=== PATIENT | female | born 1935 | race Caucasian/White ===

== ENCOUNTER → 2016-07-07 | Outpatient (CLI) | payer MEDICARE | LOC: OD 09:32 | PROVIDERS: ATTEND Otolaryngology | DX: H92.01 Otalgia, right ear (principal) | CPT/HCPCS: 36415; 85652 ==

== ENCOUNTER 2016-07-10 08:55 | Emergency (ER) | payer MEDICARE ==
--- NOTE | 2016-07-10 09:54 | ER Document Report ---
HPI - HPI Pain Level: 4 Context: Patient comes to the office c/o neck pain x1 week that radiates into her rt trapezius muscle. states that she had been working in the yard raking prior. Her pain is described as a soreness. The pain is worsened with lateral flexion to the right. Pt has been taking aleve with minimal relief. She denies any trauma. She has not noticed any radicular symptoms to her UE's b/l. She denies any fever or muscle weakness. Patient also c/o ongoing rt ear pain x2 weeks. Pt was eval'd by her pcp initially, dx'd with OE, and placed on ofloxac. otic ear drops as well as oral prednisone which she has since completed. Pt states that the medication did help. She was then referred to ENT who performed a CT scan. Her f/u appointment is still pending, but pt states that her PCP Dr. Reese believes there may be "an inner ear issue." Pt was again f/u'd by her PCP 2 days ago without any changes to her treatment/plan. Pt states that she has not had any acute changes in her condition that brought her into the ED, only that she continues to have pain. Her PCP is working on getting her seen by another ENT prior to the when she is originally scheduled. Denies any fever, CEE, dizziness, change in vision, change in hearing, tinnitus, URI sx's, sore throat , cough, sob, cp, abd pain, dysuria, or rash. - ROS Notes: REVIEW OF SYSTEMS: CONSTITUTIONAL : Denies fever, chills, or sweats. Denies recent illness. Ears: as above. ENT: Denies eye, throat, or mouth pain or symptoms. Denies nasal or sinus congestion or discharge. Denies throat, tongue, or mouth swelling or difficulty swallowing. CARDIOVASCULAR: Denies chest pain. Denies palpitations or racing or irregular heart beat. Denies ankle edema. RESPIRATORY: Denies cough, cold, or chest congestion. Denies shortness of breath, difficulty breathing, or wheezing. GASTROINTESTINAL: Denies abdominal pain or distention. Denies nausea, vomiting , or diarrhea. Denies blood in vomitus, stools, or per rectum. Denies black, tarry stools. Denies constipation. GENITOURINARY: Denies difficulty urinating, painful urination, burning, frequency, blood in urine, or discharge. MUSCULOSKELETAL: Denies back or neck pain or stiffness. Denies joint pain or swelling. SKIN: Denies rash, lesions or sores. HEMATOLOGIC : Denies easy bruising or bleeding. LYMPHATIC: Denies swollen, enlarged glands. NEUROLOGICAL: Denies confusion or altered mental status. Denies passing out or loss of consciousness. Denies dizziness or lightheadedness. Denies headache. Denies weakness or paralysis or loss of use of either side. Denies problems with gait or speech. Denies sensory loss, numbness, or tingling. Denies seizures. ALL OTHER SYSTEMS REVIEWED AND NEGATIVE. Dictation was performed using [employer] voice recognition software - CARDIOVASCULAR Cardiovascular: DENIES: Chest pain - REPRODUCTIVE Reproductive: DENIES: : - DERM Skin Color: Normal Past Medical History - Social History Smoking Status: Current Every Day Smoker Frequency of alcohol use: Rare Drug Abuse: None Family History: Reviewed & Not Pertinent Patient has suicidal ideation: No Patient has homicidal ideation: No - Past Medical History Cardiac Medical History: Reports: Hx Hypertension Denies: Hx Coronary Artery Disease, Hx Heart Attack Pulmonary Medical History: Reports: Hx Bronchitis Denies: Hx Asthma, Hx COPD, Hx Pneumonia Neurological Medical History: Denies: Hx Cerebrovascular Accident, Hx Seizures Renal/ Medical History: Denies: Hx Peritoneal Dialysis GI Medical History: Denies: Hx Hepatitis, Hx Hiatal Hernia, Hx Ulcer Musculoskeltal Medical History: Denies Hx Arthritis Infectious Medical History: Denies: Hx Hepatitis Past Surgical History: Reports: Hx Hysterectomy, Hx Mastectomy - right, Hx Orthopedic Surgery, Hx Tonsillectomy. Denies: Hx Open Heart Surgery, Hx Pacemaker - Immunizations Hx Diphtheria, Pertussis, Tetanus Vaccination: Yes Vertical Provider Document - CONSTITUTIONAL Notes: PHYSICAL EXAMINATION: GENERAL: Well-appearing, well-nourished and in no acute distress. HEAD: Atraumatic, normocephalic. EYES: Pupils equal round and reactive to light, extraocular movements intact, sclera anicteric, conjunctiva are normal. ENT: Rt ear EAC mildly erythemic, tender to palpation, tender tragus. Non- tender mastoid. No d/c. Left EAC wnl. TM's intact b/l without erythema, fluid , or perforation. Nares patent and without discharge. oropharynx clear without exudates. No tonsilar hypertrophy or erythema. Moist mucous membranes. No sinus tenderness. NECK: FROM to passive/active. No deformity, ecchymosis, abrasion, or laceration noted. + tenderness to rt C-spine to palpation and to the rt trap mm. Spurling negative. Strength 5+/5. LUNGS: Breath sounds clear to auscultation bilaterally and equal. No wheezes rales or rhonchi. HEART: Regular rate and rhythm without murmurs, rubs, gallops. ABDOMEN: Soft, nontender, nondistended abdomen. No guarding, no rebound. No masses appreciated. Normal bowel sounds present. No CVA tenderness bilaterally. Musculoskeletal: FROM to passive/active. Strength 5+/5. Extremities: No cyanosis, clubbing, or edema b/l. Peripheral pulses 2+. Capillary refill less than 3 seconds. NEUROLOGICAL: Cranial nerves grossly intact. Normal speech, normal gait. Normal sensory, motor exams. Reflexes 2+ b/l UE's. PSYCH: Normal mood, normal affect. SKIN: Warm, Dry, normal turgor, no rashes or lesions noted. - INFECTION CONTROL TRAVEL OUTSIDE OF THE [place] IN LAST 30 DAYS: No - RESPIRATORY O2 Sat by Pulse Oximetry: 99 Course - Re-evaluation Re-evalutation: 07/10/16 09:56 Patient is a 80-year-old female who presented with chronic right ear pain. Patient also presents with cervicalgia. She has been followed by her PCP and ENT over the last 2 weeks. She had a CT scan and follow-up is pending with ENT. She is placed on ofloxacin otic and oral prednisone which she has since completed. We will send her for a C-spine x-ray. XR showed moderate degenerative changes without acute process. I will send her home with Ciprodex and a short dose of tramadol to take for her neck discomfort. Her blood pressure is a little elevated today. Patient states that she has been out of her Lasix 20 mg. I will send her home with a prescription for 10 days. She is to call on Tuesday for follow-up with her PCP and for medication refill. Pt to return to the ED with any worsening neck pain, dizziness, fever, cp, sob, palp, abd pain, numbness, muscle weakness. Pt in agreement. - Vital Signs Vital signs: Temp Pulse Resp BP Pulse Ox 98.4 F 97 20 148/81 H 99 07/10/16 08:59 07/10/16 08:59 07/10/16 08:59 07/10/16 08:59 07/10/16 08:59 Discharge - Discharge Clinical Impression: Otalgia of right ear, Otitis externa, Cervicalgia, Elevated blood pressure reading Condition: Stable Disposition: HOME, SELF-CARE Instructions: Use of Ear Drops ([facility]), Acetaminophen, Otitis Externa ([facility]), Oral Narcotic Medication ([facility]) Additional Instructions: Take medication as directed Continue routine blood pressure checks at home and call Tuesday for a blood pressure medication refill of furosemide 20 mg. Keep your appointment with your PCP and ENT as scheduled Your neck x-ray did show moderate arthritic changes throughout. Bring x-ray results to the next primary care visit for continued management. Pt to return to the ED with any worsening neck pain, dizziness, fever, cp, sob, palp, abd pain, numbness, muscle weakness. F/u: with your PCP in 2-3 days for recheck. Prescriptions: Ciprofloxacin HCl/Dexameth [Ciprodex Otic Suspension 7.5 ml Bottle] 4 drop OT BID #1 bottle Furosemide 20 mg PO DAILY #10 tablet Tramadol HCl 50 mg PO BID PRN #10 tablet PRN Reason: Forms: Elevated Blood Pressure Referrals: BJ REESE MD [Primary Care Provider] - Follow up as needed
--- NOTE | 2016-07-10 10:26 | RADIOLOGY REPORT (SQ) ---
EXAM DESCRIPTION: CERV SP 3 VIEW OR LESS COMPLETED DATE/TIME: 07/10/2016 10:07 am REASON FOR STUDY: Neck pain (R>L) COMPARISON: 04/30/2013 NUMBER OF VIEWS: Five views. TECHNIQUE: AP, lateral, obliques and odontoid radiographic images acquired of the cervical spine. LIMITATIONS: None. FINDINGS: MINERALIZATION: Osteopenic ALIGNMENT: Anatomic. VERTEBRAE: Vertebral bodies of normal height. DISCS: Disc space loss of height from C3-4 through C7-T1. Very mild anterior and posterior osteophyt e formation. FORAMINA: Moderate to market right C3-4 foraminal narrowing. Moderate C4-5 and C5-6 right foraminal narrowing. Mild left C3-4 and C4-5 foraminal narrowing. Moderate left C5-6 foraminal narrowing. LATERAL AND POSTERIOR ELEMENTS: Facets, lateral masses and spinous processes without acute findings. Diffuse facet arthropathy HARDWARE: None in the spine. SOFT TISSUES: Right carotid bifurcation calcification OTHER: No other significant finding. IMPRESSION: Diffuse degenerative changes TECHNICAL DOCUMENTATION: JOB ID: [id number] [employer]- All Rights Reserved
[2016-07-10] MEDS ORDERED: TRAMADOL HCL 50 MG TABLET PO ONE (11:05)
[2016-07-10 11:12] VITALS: BP 143/72
[2016-07-10] MEDS ORDERED: CIPROFLOXACIN HCL/DEXAMETH OTIC DROP 7.5 ML AD SCH (18:00)
== END 2016-07-10 11:10 | disposition home or self-care (01) ==
LOC: ER 08:55
DX: H92.01 Otalgia, right ear (principal); H60.91 Unspecified otitis externa, right ear; M54.2 Cervicalgia; I10 Essential (primary) hypertension; Z90.710 Acquired absence of both cervix and uterus; Z90.11 Acquired absence of right breast and nipple
CPT/HCPCS: 99283; 72040; A9270

== ENCOUNTER 2016-11-20 15:02 | Emergency (ER) | payer MEDICARE ==
--- NOTE | 2016-11-20 15:59 | ER Document Report ---
HPI - HPI Pain Level: 4 Notes: Patient is a 81-year-old female who presents the ED complaining of right ear pain 2 weeks. Patient states that she was evaluated by her primary care provider and placed on polymyxin B/cortisone eardrops. Patient states that the eardrops to help, but the pain does continue in that ear. The pain does not radiate. She has not noticed any discharge or swelling. Denies any recent illness or URI symptoms. Patient states that she has been developing her usual dermatitis to her hands bilaterally that itch and would like a steroid cream for that. Denies any headache, fever, head injury, neck pain, changes in vision /speech/mentation/hearing, dizziness, tinnitus, URI, sore throat, chest pain, palpitations, syncope, cough, shortness of breath, wheeze, dyspnea, abdominal pain, nausea/vomiting/diarrhea, urinary retention, dysuria, hematuria. - ROS Notes: REVIEW OF SYSTEMS: CONSTITUTIONAL : Denies fever, chills, or sweats. Denies recent illness. EENT: see hpi. no eye complaints CARDIOVASCULAR: Denies chest pain. Denies palpitations or racing or irregular heart beat. Denies ankle edema. RESPIRATORY: Denies cough, cold, or chest congestion. Denies shortness of breath, difficulty breathing, or wheezing. GASTROINTESTINAL: Denies abdominal pain or distention. Denies nausea, vomiting , or diarrhea. Denies blood in vomitus, stools, or per rectum. Denies black, tarry stools. Denies constipation. GENITOURINARY: Denies difficulty urinating, painful urination, burning, frequency, blood in urine, or discharge. MUSCULOSKELETAL: Denies back or neck pain or stiffness. Denies joint pain or swelling. SKIN: see hpi NEUROLOGICAL: Denies confusion or altered mental status. Denies passing out or loss of consciousness. Denies dizziness or lightheadedness. Denies headache. Denies weakness or paralysis or loss of use of either side. Denies problems with gait or speech. Denies sensory loss, numbness, or tingling. ALL OTHER SYSTEMS REVIEWED AND NEGATIVE. Dictation was performed using [employer] voice recognition software - REPRODUCTIVE Reproductive: DENIES: : - DERM Skin Color: Normal Past Medical History - Social History Smoking Status: Never Smoker Family History: Reviewed & Not Pertinent - Past Medical History Cardiac Medical History: Reports: Hx Hypertension Denies: Hx Coronary Artery Disease, Hx Heart Attack Pulmonary Medical History: Reports: Hx Bronchitis Denies: Hx Asthma, Hx COPD, Hx Pneumonia Neurological Medical History: Denies: Hx Cerebrovascular Accident, Hx Seizures Renal/ Medical History: Denies: Hx Peritoneal Dialysis GI Medical History: Denies: Hx Hepatitis, Hx Hiatal Hernia, Hx Ulcer Musculoskeltal Medical History: Denies Hx Arthritis Infectious Medical History: Denies: Hx Hepatitis Past Surgical History: Reports: Hx Hysterectomy, Hx Mastectomy - right, Hx Orthopedic Surgery, Hx Tonsillectomy. Denies: Hx Open Heart Surgery, Hx Pacemaker - Immunizations Hx Diphtheria, Pertussis, Tetanus Vaccination: Yes Vertical Provider Document - CONSTITUTIONAL Agree With Documented VS: Yes Notes: PHYSICAL EXAMINATION: GENERAL: Well-appearing, well-nourished and in no acute distress. A&Ox4 HEAD: Atraumatic, normocephalic. EYES: Pupils equal round and reactive to light, extraocular movements intact, sclera anicteric, conjunctiva are normal. ENT: Rt EAC has scant white discharge noted. TM's intact b/l without erythema, fluid, or perforation. No mastoid tenderness. Nares patent and without discharge. oropharynx clear without exudates. No tonsilar hypertrophy or erythema. Moist mucous membranes. No sinus tenderness. NECK: Normal range of motion, supple without lymphadenopathy. No rigidity/ meningismus. LUNGS: Breath sounds clear to auscultation bilaterally and equal. No wheezes rales or rhonchi. HEART: Regular rate and rhythm without murmurs, rubs, gallops. Musculoskeletal: FROM to passive/active. Strength 5+/5. Extremities: No cyanosis, clubbing, or edema b/l. Peripheral pulses 2+. Capillary refill less than 3 seconds. NEUROLOGICAL: Cranial nerves grossly intact. Normal speech, normal gait. Normal sensory, motor exams PSYCH: Normal mood, normal affect. SKIN: mild erythema with lichenification and fissures to the anterior hands/ fingers b/l. No cellulitis, streaks, abscess, or discharge noted. - INFECTION CONTROL TRAVEL OUTSIDE OF THE [place] IN LAST 30 DAYS: No - RESPIRATORY O2 Sat by Pulse Oximetry: 99 Course - Re-evaluation Re-evalutation: 11/20/16 16:20 Patient is an afebrile, well-hydrated, 81-year-old female who presents the ED with otalgia of the right ear, possible otitis externa of the right ear, and bilateral hand dermatitis. Vitals are stable. PE is otherwise unremarkable. I will switch her from her polymyxin drops to Ciprodex drops and prescribe her some viscous lidocaine she can use as needed. Her ear was irrigated and an ear culture was obtained. I will also send her home with a prescription for triamcinolone cream that she may use as directed for her hands. Low suspicion for any emergent systemic condition at this time. Patient to monitor symptoms closely and seek medical attention with any acute changes. Conservative measures otherwise for symptoms. Recheck with your PCM in 3-5 days. Consider consult with ENT. Return to the ED with any worsening/concerning symptoms otherwise as reviewed in discharge. Patient is in agreement. - Vital Signs Vital signs: Temp Pulse Resp BP Pulse Ox 98.9 F 85 15 165/90 H 99 11/20/16 15:06 11/20/16 15:06 11/20/16 15:06 11/20/16 15:06 11/20/16 15:06 Procedures - Additional Procedures ear irrigation Time performed: 16:15 Additional Procedures: Other - rt ear irrigation Discharge - Discharge Clinical Impression: Otalgia, right ear, Hand dermatitis Condition: Stable Disposition: HOME, SELF-CARE Instructions: Use of Ear Drops ([facility]), Contact Dermatitis ([facility]) Additional Instructions: Keep the hands clean Use moisturizers Use steroid cream as directed Use eardrops as directed Avoid Q-tips in ears Recheck with your PCM in 3-5 days Consider consult with ENT for ongoing/worsening symptoms Return to the ED with any worsening symptoms and/or development of fever, headache, tinnitus, dizziness, neck pain/stiffness, chest pain, palpitations, syncope, shortness of breath, trouble breathing, abdominal pain, n/v/d, blood in stool/urine, or other worsening symptoms that are concerning to you. Prescriptions: Ciprofloxacin HCl/Dexameth [Ciprodex Otic Suspension 7.5 ml Bottle] 4 drop OT BID #1 bottle Triamcinolone Acetonide [Aristocort 0.5% Cream 15 gm] 1 applic TP BID #1 tube Forms: Elevated Blood Pressure Referrals: BJ REESE MD [Primary Care Provider] - Follow up in 3-5 days BETSEY LEVI MD [ACTIVE STAFF] - Follow up as needed
[2016-11-20] MEDS ORDERED: LIDOCAINE 2% VISCOUS SOLN 20 ML UDCUP PO ONE (16:19)
[2016-11-20 16:54] VITALS: BP 154/78
== END 2016-11-20 16:54 | disposition home or self-care (01) ==
LOC: ER 15:02
DX: H92.01 Otalgia, right ear (principal); L30.9 Dermatitis, unspecified; L28.0 Lichen simplex chronicus; R23.4 Changes in skin texture; I10 Essential (primary) hypertension
CPT/HCPCS: 99282; 87205; 87070; J3490

== ENCOUNTER 2017-01-16 09:56 | Emergency (ER) | payer MEDICARE ==
--- NOTE | 2017-01-16 11:31 | ER Document Report ---
HPI - HPI Patient complains to provider of: r ear pain Onset: Other - 3 months Onset/Duration: Persistent Quality of pain: Achy Pain Level: 4 Context: Patient presents complaining of right ear pain for the past 3 months. Patient states she has had multiple courses of antibiotics over the past several months. Patient saw an ENT doctor last week and was told to stop all antibiotics and he placed purple medication in her ear and told her to leave that in her ear. Patient was advised that if her pain did not resolve within 2 days that she should follow back up with his office. Family states they called his office on Tuesday and left a message although have not heard back from him. Patient denies any fever or drainage from her ear. Associated Symptoms: Earache. denies: Fever Exacerbated by: Denies Relieved by: Denies Similar symptoms previously: Yes Recently seen / treated by doctor: Yes - ROS ROS below otherwise negative: Yes Systems Reviewed and Negative: Yes All other systems reviewed and negative - CONSTITUTIONAL Constitutional: DENIES: Fever, Chills - EENT EENT: REPORTS: Ear Pain - RESPIRATORY Respiratory: DENIES: Coughing - GASTROINTESTINAL Gastrointestinal: DENIES: Nausea, Patient vomiting - REPRODUCTIVE Reproductive: DENIES: : - DERM Skin Color: Normal Skin Problems: None Past Medical History - General Information source: Patient, Relative - Social History Smoking Status: Current Every Day Smoker Chew tobacco use (# tins/day): No Frequency of alcohol use: Occasional Drug Abuse: None Lives with: Spouse/Significant other Family History: Reviewed & Not Pertinent Patient has suicidal ideation: No Patient has homicidal ideation: No - Past Medical History Cardiac Medical History: Reports: Hx Hypertension Denies: Hx Coronary Artery Disease, Hx Heart Attack Pulmonary Medical History: Reports: Hx Bronchitis Denies: Hx Asthma, Hx COPD, Hx Pneumonia Neurological Medical History: Denies: Hx Cerebrovascular Accident, Hx Seizures Renal/ Medical History: Denies: Hx Peritoneal Dialysis GI Medical History: Denies: Hx Hepatitis, Hx Hiatal Hernia, Hx Ulcer Musculoskeltal Medical History: Denies Hx Arthritis Infectious Medical History: Denies: Hx Hepatitis Past Surgical History: Reports: Hx Hysterectomy, Hx Mastectomy - right, Hx Orthopedic Surgery, Hx Tonsillectomy. Denies: Hx Open Heart Surgery, Hx Pacemaker - Immunizations Hx Diphtheria, Pertussis, Tetanus Vaccination: Yes Vertical Provider Document - CONSTITUTIONAL Agree With Documented VS: Yes Exam Limitations: No Limitations General Appearance: WD/WN, No Apparent Distress - INFECTION CONTROL TRAVEL OUTSIDE OF THE [place] IN LAST 30 DAYS: No - HEENT HEENT: Atraumatic, Normocephalic. negative: Pharyngeal Exudate, Pharyngeal Tenderness, Pharyngeal Erythema, Tympanic Membrane Red, Tympanic Membrane Bulging Notes: No dental tenderness, no mastoid tenderness or swelling. No pain with movement of right helix. Patient with purple discoloration throughout entire right external auditory canal. TM unable to be visualized due to purple residue - NECK Neck: Normal Inspection, Supple. negative: Lymphadenopathy-Left, Lymphadenopathy-Right - RESPIRATORY Respiratory: Breath Sounds Normal, No Respiratory Distress O2 Sat by Pulse Oximetry: 100 - CARDIOVASCULAR Cardiovascular: Regular Rate, Regular Rhythm - MUSCULOSKELETAL/EXTREMETIES Musculoskeletal/Extremeties: MAEW - NEURO Level of Consciousness: Awake, Alert, Appropriate Motor/Sensory: No Motor Deficit - DERM Integumentary: Warm, Dry, No Rash Course - Re-evaluation Re-evalutation: 01/16/17 11:29 Dr. Conte to bedside for examination. Does not recommend irrigating the ear, does not recommend putting patient on any antibiotics. Recommends outpatient follow-up with ENT tomorrow for recheck. Advises treating pain symptoms with Tylenol Motrin Offered patient Tylenol here, patient declines stating that she has some at home. 01/16/17 11:38 - Vital Signs Vital signs: Temp Pulse Resp BP Pulse Ox 98.5 F 84 16 144/90 H 100 01/16/17 10:01 01/16/17 10:01 01/16/17 10:01 01/16/17 10:01 01/16/17 10:01 Discharge - Discharge Clinical Impression: Otalgia of right ear, Elevated blood pressure reading Condition: Stable Disposition: HOME, SELF-CARE Instructions: Acetaminophen, Use of Ayhr-Nko-Keeiswh Ibuprofen ([facility]) Additional Instructions: Return immediately for any new or worsening symptoms Followup with your primary care provider, call tomorrow to make a followup appointment Follow-up with Dr. Tang tomorrow morning for recheck Forms: Elevated Blood Pressure Referrals: BJ REESE MD [Primary Care Provider] - Follow up as needed SHARRON TANG MD [NO LOCAL MD] - Follow up tomorrow
[2017-01-16 12:08] VITALS: BP 135/86
== END 2017-01-16 11:44 | disposition home or self-care (01) ==
LOC: ER 09:56
DX: H92.01 Otalgia, right ear (principal); I10 Essential (primary) hypertension; F17.200 Nicotine dependence, unspecified, uncomplicated
CPT/HCPCS: 99282

== ENCOUNTER 2017-01-30 12:47 | Emergency (ER) | payer MEDICARE ==
[2017-01-30 12:54] VITALS: BP 166/89
--- NOTE | 2017-01-30 13:23 | ER Document Report ---
HPI - HPI Patient complains to provider of: right ear pain Onset: This morning Onset/Duration: Intermittent Quality of pain: Throbbing Severity: Moderate Pain Level: 3 Context: Patient complains of increased ear pain that started today. Was previously seen on the for same condition. Has follow-up appointment with ENT on February 09, 2017. No fever, denies congestion. Associated Symptoms: Earache Exacerbated by: Denies Relieved by: Denies Similar symptoms previously: Yes Recently seen / treated by doctor: Yes - ROS ROS below otherwise negative: Yes Systems Reviewed and Negative: Yes All other systems reviewed and negative - CONSTITUTIONAL Constitutional: DENIES: Fever - EENT EENT: REPORTS: Ear Pain. DENIES: Congestion - NEURO Neurology: DENIES: Headache - CARDIOVASCULAR Cardiovascular: DENIES: Chest pain - RESPIRATORY Respiratory: DENIES: Trouble Breathing - GASTROINTESTINAL Gastrointestinal: DENIES: Abdominal Pain - URINARY Urinary: DENIES: Dysuria - REPRODUCTIVE Reproductive: DENIES: : - MUSCULOSKELETAL Musculoskeletal: DENIES: Extremity pain - DERM Skin Color: Normal Past Medical History - General Information source: Patient, Relative - Social History Smoking Status: Current Every Day Smoker Cigarette use (# per day): Yes Frequency of alcohol use: Occasional Drug Abuse: None Lives with: Spouse/Significant other Family History: Reviewed & Not Pertinent - Past Medical History Cardiac Medical History: Reports: Hx Hypertension Pulmonary Medical History: Reports: Hx Bronchitis Past Surgical History: Reports: Hx Hysterectomy, Hx Mastectomy - right, Hx Orthopedic Surgery, Hx Tonsillectomy - Immunizations Hx Diphtheria, Pertussis, Tetanus Vaccination: Yes Vertical Provider Document - CONSTITUTIONAL Agree With Documented VS: Yes Exam Limitations: No Limitations General Appearance: WD/WN, No Apparent Distress Notes: Patient is poor historian. Relative with patient states she has a follow-up appointment with ENT February 09, 2017. - INFECTION CONTROL TRAVEL OUTSIDE OF THE [place] IN LAST 30 DAYS: No - HEENT HEENT: Atraumatic, Normocephalic Notes: Nose and throat normal. Left TM dull. Right canal still has blue stain from ENT visit last week. No pain with movement of right auricle. TM has poor light reflex and has slight bulge and whitish mayer color to lower half of the eardrum. - RESPIRATORY Respiratory: Breath Sounds Normal, No Respiratory Distress O2 Sat by Pulse Oximetry: 99 - CARDIOVASCULAR Cardiovascular: Regular Rate, Regular Rhythm - GI/ABDOMEN Gastrointestinal: Abdomen Soft - MUSCULOSKELETAL/EXTREMETIES Musculoskeletal/Extremeties: MAEW - NEURO Level of Consciousness: Awake, Alert - DERM Integumentary: Warm, Dry Course - Vital Signs Vital signs: Temp Pulse Resp BP Pulse Ox 99.1 F 83 17 166/89 H 99 01/30/17 12:53 01/30/17 12:53 01/30/17 12:53 01/30/17 12:53 01/30/17 12:53 Discharge - Discharge Clinical Impression: Otalgia, right ear Condition: Good Disposition: HOME, SELF-CARE Additional Instructions: tylenol or motrin as needed for pain med as prescribed follow up wth your ENT February 09 as scheduled Return as needed Prescriptions: Cefdinir 300 mg PO BID #14 capsule Referrals: BJ REESE MD [Primary Care Provider] - Follow up as needed
== END 2017-01-30 13:35 | disposition home or self-care (01) ==
LOC: ER 12:47
DX: H92.01 Otalgia, right ear (principal); F17.210 Nicotine dependence, cigarettes, uncomplicated
CPT/HCPCS: 96372; 99282

== ENCOUNTER 2017-02-02 09:03 | Emergency (ER) | payer MEDICARE ==
--- NOTE | 2017-02-02 09:36 | ER Document Report ---
HPI - HPI Pain Level: 3 Notes: Patient is a 81-year-old presents ED complaining right ear pain 2 days. The pain is an ache and does not radiate. Patient has not noticed any discharge, tinnitus, dizziness, or dec hearing. Pt believes that she may have placed drops in her ear but cannot remember. Patient is drinking without any difficulties. She still urinating normally and having normal bowel movement. Patient has been using some [id number] meds with minimal relief. She has no other concerns or complaints at this time. Denies any headache, fever, head injury, neck pain, URI, sore throat, chest pain, palpitations, syncope, cough, shortness of breath, wheeze, dyspnea, abdominal pain, nausea/vomiting/diarrhea, urinary retention, dysuria, hematuria, or rash. Pt has a h/o Alzheimers and does get confused on occasion. Pt does have someone to call to pick her up after today's visit. Mr. Gorman stated on the phone that she is already being treated for a fungal infection by a provider in [place] to the rt ear. - ROS Notes: REVIEW OF SYSTEMS: CONSTITUTIONAL : Denies fever, chills, or sweats. Denies recent illness. EENT: see hpi CARDIOVASCULAR: Denies chest pain. Denies palpitations or racing or irregular heart beat. Denies ankle edema. RESPIRATORY: Denies cough, cold, or chest congestion. Denies shortness of breath, difficulty breathing, or wheezing. GASTROINTESTINAL: Denies abdominal pain or distention. Denies nausea, vomiting , or diarrhea. Denies blood in vomitus, stools, or per rectum. Denies black, tarry stools. Denies constipation. GENITOURINARY: Denies difficulty urinating, painful urination, burning, frequency, blood in urine, or discharge. MUSCULOSKELETAL: Denies back or neck pain or stiffness. Denies joint pain or swelling. SKIN: Denies rash, lesions or sores. NEUROLOGICAL: Denies confusion or altered mental status. Denies passing out or loss of consciousness. Denies dizziness or lightheadedness. Denies headache. Denies problems with gait or speech. Denies sensory loss, numbness , or tingling. Denies seizures. ALL OTHER SYSTEMS REVIEWED AND NEGATIVE. Dictation was performed using girnarsoft recognition software - CONSTITUTIONAL Constitutional: DENIES: Fever, Chills - EENT EENT: REPORTS: Ear Pain - right ear - REPRODUCTIVE Reproductive: DENIES: : Past Medical History - Social History Smoking Status: Current Every Day Smoker Chew tobacco use (# tins/day): No Frequency of alcohol use: Occasional Drug Abuse: None Family History: Reviewed & Not Pertinent Patient has suicidal ideation: No Patient has homicidal ideation: No - Past Medical History Cardiac Medical History: Reports: Hx Hypertension Denies: Hx Coronary Artery Disease, Hx Heart Attack Pulmonary Medical History: Reports: Hx Bronchitis Denies: Hx Asthma, Hx COPD, Hx Pneumonia Neurological Medical History: Denies: Hx Cerebrovascular Accident, Hx Seizures Renal/ Medical History: Denies: Hx Peritoneal Dialysis GI Medical History: Denies: Hx Hepatitis, Hx Hiatal Hernia, Hx Ulcer Musculoskeltal Medical History: Denies Hx Arthritis Infectious Medical History: Denies: Hx Hepatitis Past Surgical History: Reports: Hx Hysterectomy, Hx Mastectomy - right, Hx Orthopedic Surgery, Hx Tonsillectomy. Denies: Hx Open Heart Surgery, Hx Pacemaker - Immunizations Hx Diphtheria, Pertussis, Tetanus Vaccination: Yes Vertical Provider Document - CONSTITUTIONAL Agree With Documented VS: Yes Notes: PHYSICAL EXAMINATION: GENERAL: Well-appearing, well-nourished and in no acute distress. HEAD: Atraumatic, normocephalic. EYES: Pupils equal round and reactive to light, extraocular movements intact, sclera anicteric, conjunctiva are normal. ENT: Rt EAC is entirely the color purple, bright purple, and obscuring adequate view of the TM. Lt EAC clear. TM's intact b/l without erythema, fluid, or perforation. Nares patent and without discharge. oropharynx clear without exudates. No tonsilar hypertrophy or erythema. Moist mucous membranes. No sinus tenderness. No tenderness to the tragus. No mastoid tenderness. NECK: Normal range of motion, supple without lymphadenopathy. No rigidity/ meningismus. LUNGS: Breath sounds clear to auscultation bilaterally and equal. No wheezes rales or rhonchi. HEART: Regular rate and rhythm without murmurs, rubs, gallops. Extremities: No cyanosis, clubbing, or edema b/l. Peripheral pulses 2+. Capillary refill less than 3 seconds. NEUROLOGICAL: Cranial nerves grossly intact. Normal speech, normal gait. Normal sensory, motor exams PSYCH: Normal mood, normal affect. SKIN: Warm, Dry, normal turgor, no rashes or lesions noted. - INFECTION CONTROL TRAVEL OUTSIDE OF THE [place] IN LAST 30 DAYS: No - RESPIRATORY O2 Sat by Pulse Oximetry: 98 Course - Re-evaluation Re-evalutation: 02/02/17 10:52 Patient is an afebrile, well-hydrated, 81-year-old female with Alzheimer's who presents to the ED with continued otomycosis of the right ear with already applied Gentian Kia medication by Dr. Alberto (spelling?) in [place]. I did review this case with Mr. Gorman who accompanied the patient at the end of her visit. Conservative measures for symptoms. Recheck with that provider in 3-5 days or as scheduled on February 09. Return to the ED with any worsening/ concerning symptoms otherwise as reviewed discharge. Patient and friend are in agreement. - Vital Signs Vital signs: Temp Pulse Resp BP Pulse Ox 98.1 F 85 16 158/94 H 98 02/02/17 09:11 02/02/17 09:11 02/02/17 09:11 02/02/17 09:11 02/02/17 09:11 Discharge - Discharge Clinical Impression: Otomycosis of right ear Condition: Stable Disposition: HOME, SELF-CARE Additional Instructions: You have a purple stain in your ear from the Gentian Kia ear drop medication given to you by your doctor in [place] to treat your fungal ear infection, which is most likely the cause of your ear discomfort. Take Tylenol/Motrin as needed for symptoms. Maintain adequate fluid intake. Recheck with your [facility]/ [place] provider in 3-5 days. I will give you a consult/referral to ENT. Return to the ED with any worsening symptoms and/or development of fever, headache, neck pain, tinnitus, ear drainage, chest pain, palpitations, syncope, shortness of breath, trouble breathing, abdominal pain, n/v/d, blood in stool/ urine, or other worsening symptoms that are concerning to you. Forms: Elevated Blood Pressure Referrals: DEISY PECK, [ASSOCIATE] - Follow up as needed
[2017-02-02 10:52] VITALS: BP 155/94
== END 2017-02-02 10:57 | disposition home or self-care (01) ==
LOC: ER 09:03
DX: B36.9 Superficial mycosis, unspecified (principal); H62.41 Otitis externa in other diseases classified elsewhere, right ear; H92.01 Otalgia, right ear; G30.9 Alzheimer's disease, unspecified; F02.80 Dementia in other diseases classified elsewhere, unspecified severity, without behavioral disturbance, psychotic disturbance, mood disturbance, and anxiety; F17.200 Nicotine dependence, unspecified, uncomplicated; I10 Essential (primary) hypertension
CPT/HCPCS: 99282

== ENCOUNTER 2017-02-27 09:38 | Emergency (ER) | payer MEDICARE ==
[2017-02-27] MEDS ORDERED: HYDROCODONE/ACETAMINOPHEN 5-325 MG TABLET PO ONE (10:32)
--- NOTE | 2017-02-27 10:34 | ER Document Report ---
HPI - HPI Patient complains to provider of: chronic neck pain that radiateds into left ear Onset: Other Onset/Duration: Persistent - More than 6 months Pain Level: 5 Context: 81-year-old female here with her significant other male complaining of chronic bilateral upper back pain shoulder pain neck pain radiates into her ears. She is especially complaining of her right ear today. She is seen multiple providers including ENT several offices. She was scheduled for an MRI last week and was unable to lay down for the test. She also has a history of some high blood pressure that is untreated. Her primary care doctor is Dr. Reese. She also states that she no longer has a memory and this is normal for her and the significant other male confirms that. Denies chest pain or shortness of breath. No abdominal pain. No nausea vomiting or diarrhea. No headache. No fever or chills. no radiculopathy. Associated Symptoms: None Exacerbated by: Movement Relieved by: Denies Similar symptoms previously: Yes Recently seen / treated by doctor: Yes - ROS ROS below otherwise negative: Yes Systems Reviewed and Negative: Yes All other systems reviewed and negative - EENT EENT: REPORTS: Ear Pain - REPRODUCTIVE Reproductive: DENIES: : Past Medical History - General Information source: Patient - Social History Smoking Status: Current Every Day Smoker Chew tobacco use (# tins/day): No Frequency of alcohol use: None Drug Abuse: None Lives with: Spouse/Significant other Family History: Reviewed & Not Pertinent Patient has suicidal ideation: No Patient has homicidal ideation: No - Past Medical History Cardiac Medical History: Reports: Hx Hypertension Pulmonary Medical History: Reports: Hx Bronchitis Renal/ Medical History: Denies: Hx Peritoneal Dialysis Past Surgical History: Reports: Hx Hysterectomy, Hx Mastectomy - right- cancer, Hx Orthopedic Surgery, Hx Tonsillectomy - Immunizations Hx Diphtheria, Pertussis, Tetanus Vaccination: Yes Vertical Provider Document - CONSTITUTIONAL Agree With Documented VS: Yes Exam Limitations: No Limitations - INFECTION CONTROL TRAVEL OUTSIDE OF THE [place] IN LAST 30 DAYS: No - HEENT HEENT: Atraumatic, Normocephalic. negative: Tympanic Membrane Red, Tympanic Membrane Bulging Notes: wax next to right tm, no canal or external ear tenderness, no swelling. 2mm rolled border lesion tip of nose, possilbe basal cell cancer. - NECK Neck: Supple - tender bilateral trapezius with winged scapula, forward flexion of cervical spine, rolled shoulders forward - RESPIRATORY Respiratory: Breath Sounds Normal, No Respiratory Distress - CARDIOVASCULAR Cardiovascular: Regular Rate, Regular Rhythm - BACK Back: Normal Inspection - MUSCULOSKELETAL/EXTREMETIES Musculoskeletal/Extremeties: MAEW, FROM, Tender - see above - NEURO Level of Consciousness: Awake, Alert, Appropriate Motor/Sensory: No Motor Deficit, No Sensory Deficit - DERM Integumentary: Warm, Dry Course - Re-evaluation Re-evalutation: 02/27/17 11:31 Patient has short-term memory loss and she is with her that is normal for her. She is agitated because she does not remember this appointment or the pill that was prescribed or any instructions that have been given. Her blood pressure is now 218/118 in the left arm that I took myself I am ordering Ativan because of the agitation and will talk to Dr. Barnes about the patient 02/27/17 12:[address] Molina the systolic blood pressure is now 194, I instructed the to have her follow up with Dr. Reese about getting her blood pressure medicine. I also verbally told him that she needs to see a dip unit operator about the nose lesion, that it looks like a basal cell cancer . Discharge - Discharge Clinical Impression: chronic neck and shoulder pain, Chronic right ear pain Condition: Good Disposition: HOME, SELF-CARE Instructions: Oral Narcotic Medication ([facility]), Warm Packs ([facility]) Additional Instructions: massage muscle rub see the physical therapist on tuesday as planned stretches as discussed see [facility] doctor for follow up Prescriptions: Hydrocodone Bit/Acetaminophen [Hydrocodon-Acetaminophen 5-325] 1 each PO Q4HP PRN #15 tablet PRN Reason: Referrals: BJ REESE MD [Primary Care Provider] - Follow up as needed
[2017-02-27] MEDS ORDERED: LORAZEPAM 1 MG TABLET PO ONE (11:30)
[2017-02-27 12:11] VITALS: BP 194/103
== END 2017-02-27 12:15 | disposition home or self-care (01) ==
LOC: ER 09:38
DX: G89.29 Other chronic pain (principal); M54.2 Cervicalgia; H92.01 Otalgia, right ear; M25.511 Pain in right shoulder; M25.512 Pain in left shoulder; M54.89 Other dorsalgia; R45.1 Restlessness and agitation; L98.9 Disorder of the skin and subcutaneous tissue, unspecified; R41.3 Other amnesia; F17.200 Nicotine dependence, unspecified, uncomplicated; I10 Essential (primary) hypertension; Z85.3 Personal history of malignant neoplasm of breast
CPT/HCPCS: 99283; A9270 ×2

== ENCOUNTER 2017-03-05 15:20 | Emergency (ER) | payer MEDICARE ==
[2017-03-05 15:26] VITALS: BP 144/86
--- NOTE | 2017-03-05 16:06 | ER Document Report ---
HPI - HPI Patient complains to provider of: right ear pain Onset: Other Onset/Duration: Persistent Quality of pain: Achy Severity: Severe Pain Level: 4 Context: Patient presents to the emergency department with her significant other of 25 years for complaints of right ear pain. Patient reports she has had this ear pain for years. Her significant other reports she has had a fungal infection with a blue dye test. Patient was evaluated [place] on Tuesday and were told to stop the eardrops. They have another appointment with Dr. Casillas on Tuesday. is an ENT and grievance and appeals specialist. Patient denies fever vomiting trauma diarrhea. She reports her neighbor gave her some ibuprofen for the pain. Patient seems confused about dates and times but significant other fills in the gaps and seems irritated. He reports he does not know why they are here. Describes it as more of a chronic problem. Associated Symptoms: None Exacerbated by: Denies Relieved by: Denies Similar symptoms previously: Yes Recently seen / treated by doctor: Yes - REPRODUCTIVE Reproductive: DENIES: : Past Medical History - General Information source: Patient, Friend - significant other for past 25 years - Social History Smoking Status: Unknown if Ever Smoked Cigarette use (# per day): No Frequency of alcohol use: None Drug Abuse: None Lives with: Family Family History: Reviewed & Not Pertinent Patient has suicidal ideation: No Patient has homicidal ideation: No - Past Medical History Cardiac Medical History: Reports: Hx Hypertension Denies: Hx Coronary Artery Disease, Hx Heart Attack Pulmonary Medical History: Reports: Hx Bronchitis Denies: Hx Asthma, Hx COPD, Hx Pneumonia Neurological Medical History: Denies: Hx Cerebrovascular Accident, Hx Seizures Renal/ Medical History: Denies: Hx Peritoneal Dialysis GI Medical History: Denies: Hx Hepatitis, Hx Hiatal Hernia, Hx Ulcer Musculoskeltal Medical History: Denies Hx Arthritis Psychiatric Medical History: Reports: Hx Dementia Infectious Medical History: Denies: Hx Hepatitis Past Surgical History: Reports: Hx Hysterectomy, Hx Mastectomy - right- cancer, Hx Orthopedic Surgery, Hx Tonsillectomy. Denies: Hx Open Heart Surgery, Hx Pacemaker - Immunizations Hx Diphtheria, Pertussis, Tetanus Vaccination: Yes Vertical Provider Document - CONSTITUTIONAL Agree With Documented VS: Yes Exam Limitations: No Limitations General Appearance: WD/WN, No Apparent Distress - Nontoxic looking - INFECTION CONTROL TRAVEL OUTSIDE OF THE [place] IN LAST 30 DAYS: No - HEENT HEENT: Atraumatic, Normocephalic. negative: Pharyngeal Exudate, Pharyngeal Erythema, Tympanic Membrane Red, Tympanic Membrane Bulging - NECK Neck: Normal Inspection, Supple, Other - tender to right side neck,FROM, good dress operator, turns head side to side without problems, no erythema, warmth, swelling. negative: Lymphadenopathy-Left, Lymphadenopathy-Right - RESPIRATORY Respiratory: Breath Sounds Normal, No Respiratory Distress O2 Sat by Pulse Oximetry: 98 - CARDIOVASCULAR Cardiovascular: Regular Rate - GI/ABDOMEN Gastrointestinal: Abdomen Soft, Abdomen Non-Tender - MUSCULOSKELETAL/EXTREMETIES Musculoskeletal/Extremeties: MAEW - NEURO Level of Consciousness: Awake, Alert, Appropriate, Confused - pt reports memory problems, is not sure about dates, treatment of ear. Motor/Sensory: No Motor Deficit - DERM Integumentary: Warm, Dry Adult Front & Back Diagram: 1 - c/o ttp Course - Re-evaluation Re-evalutation: 03/05/17 16:43 Patient is nontoxic looking no erythema swelling or warmth to her right ear or right side neck. No deficits noted. Patient was instructed to follow-up with Dr. casillas as scheduled. - Vital Signs Vital signs: Temp Pulse Resp BP Pulse Ox 98.1 F 85 18 144/86 H 98 03/05/17 15:25 03/05/17 15:25 03/05/17 15:25 03/05/17 15:25 03/05/17 15:25 Discharge - Discharge Clinical Impression: Right ear pain Condition: Stable Disposition: HOME, SELF-CARE Additional Instructions: *You have been evaluated for ear pain *Follow up with Dr Casillas this Tuesday as scheduled *Take tylenol or motrin as indicated for pain *Return to ED for worsening condition, changes, needs Monitor your blood pressure. Your blood pressure was elevated today. This may be because you were anxious, in pain or because you need medication. It is important to follow up with your primary care provider for full evaluation. Forms: Elevated Blood Pressure
== END 2017-03-05 16:12 | disposition home or self-care (01) ==
LOC: ER 15:20
DX: H92.01 Otalgia, right ear (principal); I10 Essential (primary) hypertension
CPT/HCPCS: 99282

== ENCOUNTER 2017-03-07 14:47 | Emergency (ER) | payer MEDICARE ==
[2017-03-07 14:54] VITALS: BP 109/67
[2017-03-07] MEDS ORDERED: HYDROCODONE/ACETAMINOPHEN 5-325 MG (6 TAB/ER DISP) PO PRN (15:33)
--- NOTE | 2017-03-07 15:33 | ER Document Report ---
HPI - HPI Pain Level: 4 Notes: Patient is a 81-year-old female with a history of Alzheimer's who presents the ED with Mr. Gorman complaining of continued right ear pain and decreased hearing. Mr. Gorman states that she just been having some more pain and she has to see her ENT again in 2 days, but was asking for something to help her with pain and discomfort as she continues to complain of pain to that ear. Patient has otherwise been eating and drinking without any difficulties. She is urinating normally and having normal bowel movements. No other concerns or complaints at this time. Denies any headache, fever, head injury, neck pain, URI, sore throat, chest pain, palpitations, syncope, cough, shortness of breath , wheeze, dyspnea, abdominal pain, nausea/vomiting/diarrhea, urinary retention, dysuria, hematuria, or rash. - ROS ROS Unobtainable: Yes ROS unobtainable due to patient's medical condition - see hpi Systems Reviewed and Negative: Yes All other systems reviewed and negative - REPRODUCTIVE Reproductive: DENIES: : Past Medical History - General Information source: Friend Cannot obtain history due to: Dementia - I was able to get some history, but take with a grain of salt--also history per her significant other Mr. Gorman. - Social History Smoking Status: Unknown if Ever Smoked Family History: Reviewed & Not Pertinent - Past Medical History Cardiac Medical History: Reports: Hx Hypertension Denies: Hx Coronary Artery Disease, Hx Heart Attack Pulmonary Medical History: Reports: Hx Bronchitis Denies: Hx Asthma, Hx COPD, Hx Pneumonia Neurological Medical History: Denies: Hx Cerebrovascular Accident, Hx Seizures Renal/ Medical History: Denies: Hx Peritoneal Dialysis GI Medical History: Denies: Hx Hepatitis, Hx Hiatal Hernia, Hx Ulcer Musculoskeltal Medical History: Denies Hx Arthritis Psychiatric Medical History: Reports: Hx Dementia Infectious Medical History: Denies: Hx Hepatitis Past Surgical History: Reports: Hx Hysterectomy, Hx Mastectomy - right- cancer, Hx Orthopedic Surgery, Hx Tonsillectomy. Denies: Hx Open Heart Surgery, Hx Pacemaker - Immunizations Hx Diphtheria, Pertussis, Tetanus Vaccination: Yes Vertical Provider Document - CONSTITUTIONAL Agree With Documented VS: Yes Notes: PHYSICAL EXAMINATION: GENERAL: Well-appearing, well-nourished and in no acute distress. HEAD: Atraumatic, normocephalic. EYES: Pupils equal round and reactive to light, extraocular movements intact, sclera anicteric, conjunctiva are normal. ENT: EAC clear b/l. Rt TM: appears to continue to have a fungal otomycosis present. Lt TM intact b/l without erythema, fluid, or perforation. Nares patent and with clear discharge. oropharynx mild erythema without exudates. No tonsilar hypertrophy without erythema or exudate. No palatine shift. Uvula midline. No tongue protrusion. No drooling, hoarseness, or airway compromise. Moist mucous membranes. No sinus tenderness. NECK: Normal range of motion, supple without lymphadenopathy. No rigidity/ meningismus. LUNGS: Breath sounds clear to auscultation bilaterally and equal. No wheezes rales or rhonchi. HEART: Regular rate and rhythm without murmurs, rubs, gallops. NEUROLOGICAL: Normal speech, normal gait. Normal sensory, motor exams PSYCH: Normal mood, normal affect. SKIN: Warm, Dry, normal turgor, no rashes or lesions noted. - INFECTION CONTROL TRAVEL OUTSIDE OF THE [place] IN LAST 30 DAYS: No - RESPIRATORY O2 Sat by Pulse Oximetry: 99 Course - Re-evaluation Re-evalutation: 03/07/17 15:31 Patient is an afebrile, well-hydrated, 81-year-old female who presents to the ED with otomycosis of the right ear ongoing since last time I saw at the end of January. Vitals are stable. PE is otherwise unremarkable. No labs or imaging warranted at this time based on H&P. Patient does have a scheduled follow-up with ENT in 2 days. Low suspicion for any meningitis, sepsis, peritonsillar/pharyngeal abscess, respiratory compromise, Phil's, severe dehydration, mastoiditis, or other emergent systemic condition at this time. Mr. Gorman is aware this condition can change from initial presentation and he needs to monitor symptoms closely. I will send her home with a Tecumseh dispense pack to use only for breakthrough pain. Conservative measures otherwise for symptoms. Recheck with your PCM in 3-5 days. Return to the ED with any worsening/concerning symptoms otherwise as reviewed in discharge. Patient is in agreement. - Vital Signs Vital signs: Temp Pulse Resp BP Pulse Ox 98.4 F 94 15 109/67 99 03/07/17 14:53 03/07/17 14:53 03/07/17 14:53 03/07/17 14:53 03/07/17 14:53 Discharge - Discharge Clinical Impression: Otomycosis of right ear Condition: Stable Disposition: HOME, SELF-CARE Instructions: Oral Narcotic Medication ([facility]) Additional Instructions: Maintain adequate fluid intake Take meds as directed--only use T[place]umseh for breakthrough pain tylenol/ibuprofen as needed over the counter cold medication as needed for symptoms Humidified air may help for a cough F/u: with your PCM in 3-5 days for a recheck Keep consult with ENT as scheduled on Tuesday* Return to the ED with any fever, worsening pain, chest pain, palpitations, syncope, worsening CEE, neck pain/stiffness, shortness of breath, wheezing, drooling, trouble swallowing/breathing, abdominal pain, n/v/d, rash, or worsening/concerning symptoms otherwise. Referrals: SHARRON TANG MD [NO LOCAL MD] - 03/09/17
== END 2017-03-07 16:03 | disposition home or self-care (01) ==
LOC: ER 14:47
DX: B36.9 Superficial mycosis, unspecified (principal); H62.41 Otitis externa in other diseases classified elsewhere, right ear; H92.01 Otalgia, right ear; G30.9 Alzheimer's disease, unspecified; F02.80 Dementia in other diseases classified elsewhere, unspecified severity, without behavioral disturbance, psychotic disturbance, mood disturbance, and anxiety
CPT/HCPCS: 99282; A9270

== ENCOUNTER 2017-03-20 11:34 | Emergency (ER) | payer MEDICARE ==
[2017-03-20 11:43] VITALS: BP 126/71
--- NOTE | 2017-03-20 12:42 | ER Document Report ---
ED ENT - General Chief Complaint: Ear Pain Stated Complaint: RIGHT EAR PAIN Time Seen by Provider: 03/20/17 12:35 Mode of Arrival: Ambulatory Information source: Patient TRAVEL OUTSIDE OF THE [place] IN LAST 30 DAYS: No - HPI Patient complains to provider of: Ear problem - pt. states she had some R ear pain last week but feels better now - Related Data Allergies/Adverse Reactions: Penicillins Allergy (Verified 03/07/17 16:02) rofecoxib [From Vioxx] Allergy (Verified 03/07/17 16:02) Sulfa (Sulfonamide Antibiotics) Allergy (Verified 03/07/17 16:02) Past Medical History - Social History Smoking Status: Current Every Day Smoker Chew tobacco use (# tins/day): No Frequency of alcohol use: Rare Drug Abuse: None Family History: Reviewed & Not Pertinent Patient has suicidal ideation: No Patient has homicidal ideation: No - Past Medical History Cardiac Medical History: Reports: Hx Hypertension Denies: Hx Coronary Artery Disease, Hx Heart Attack Pulmonary Medical History: Reports: Hx Bronchitis Denies: Hx Asthma, Hx COPD, Hx Pneumonia Neurological Medical History: Denies: Hx Cerebrovascular Accident, Hx Seizures Renal/ Medical History: Denies: Hx Peritoneal Dialysis GI Medical History: Denies: Hx Hepatitis, Hx Hiatal Hernia, Hx Ulcer Musculoskeltal Medical History: Denies Hx Arthritis Psychiatric Medical History: Reports: Hx Dementia Infectious Medical History: Denies: Hx Hepatitis Past Surgical History: Reports: Hx Hysterectomy, Hx Mastectomy - right- cancer, Hx Orthopedic Surgery, Hx Tonsillectomy. Denies: Hx Open Heart Surgery, Hx Pacemaker - Immunizations Hx Diphtheria, Pertussis, Tetanus Vaccination: Yes Review of Systems - Review of Systems Constitutional: No symptoms reported EENT: See HPI, Ear pain Cardiovascular: No symptoms reported Respiratory: No symptoms reported -: Yes All other systems reviewed and negative Physical Exam - Vital signs Vitals: Temp Pulse Resp BP Pulse Ox 98.6 F 77 16 126/71 H 98 03/20/17 11:42 03/20/17 11:42 03/20/17 11:42 03/20/17 11:42 03/20/17 11:42 - General General appearance: Appears well In distress: None - HEENT Ears: Normal External canal: Normal Tympanic membrane: Normal Pharynx: Normal Neck: Normal - Respiratory Respiratory status: No respiratory distress Breath sounds: Normal - Cardiovascular Rhythm: Regular Heart sounds: Normal auscultation - Abdominal Inspection: Normal Bowel sounds: Normal Course - Vital Signs Vital signs: Temp Pulse Resp BP Pulse Ox 98.6 F 77 16 126/71 H 98 03/20/17 11:42 03/20/17 11:42 03/20/17 11:42 03/20/17 11:42 03/20/17 11:42 Discharge - Discharge Clinical Impression: Ear pain, right Condition: Stable Disposition: HOME, SELF-CARE Additional Instructions: rest, continue current meds, return if worse Referrals: BJ REESE MD [Primary Care Provider] - Follow up as needed
== END 2017-03-20 12:50 | disposition home or self-care (01) ==
LOC: ER 11:34
DX: H92.01 Otalgia, right ear (principal); I10 Essential (primary) hypertension; F17.200 Nicotine dependence, unspecified, uncomplicated; Z88.0 Allergy status to penicillin; Z88.2 Allergy status to sulfonamides; Z88.8 Allergy status to other drugs, medicaments and biological substances
CPT/HCPCS: 99282

== ENCOUNTER 2017-04-06 18:23 | Emergency (ER) | payer MEDICARE ==
[2017-04-06 18:45] VITALS: BP 149/80
--- NOTE | 2017-04-06 19:07 | ER Document Report ---
HPI - HPI Patient complains to provider of: Right ear pain Pain Level: 3 Context: Patient is a 81-year-old female complaining of right ear and neck pain times several hours. Patient denies any fever,cough, chest pain, shortness of breath. Patient has been seen in the ER multiple times for same complaint. Most recently March 20. Associated Symptoms: None Exacerbated by: Denies Relieved by: Denies - CONSTITUTIONAL Constitutional: DENIES: Fever, Chills - EENT EENT: REPORTS: Ear Pain - right - NEURO Neurology: REPORTS: Headache - right side - REPRODUCTIVE Reproductive: DENIES: : - MUSCULOSKELETAL Musculoskeletal: REPORTS: Extremity pain - shoulder Past Medical History - General Information source: Patient - Social History Smoking Status: Current Every Day Smoker Chew tobacco use (# tins/day): No Frequency of alcohol use: Occasional Drug Abuse: None Lives with: Alone Family History: Reviewed & Not Pertinent Patient has suicidal ideation: No Patient has homicidal ideation: No - Past Medical History Cardiac Medical History: Reports: Hx Hypertension Denies: Hx Coronary Artery Disease, Hx Heart Attack Pulmonary Medical History: Reports: Hx Bronchitis Denies: Hx Asthma, Hx COPD, Hx Pneumonia Neurological Medical History: Denies: Hx Cerebrovascular Accident, Hx Seizures Renal/ Medical History: Denies: Hx Peritoneal Dialysis GI Medical History: Denies: Hx Hepatitis, Hx Hiatal Hernia, Hx Ulcer Musculoskeltal Medical History: Denies Hx Arthritis Psychiatric Medical History: Reports: Hx Dementia Infectious Medical History: Denies: Hx Hepatitis Past Surgical History: Reports: Hx Hysterectomy, Hx Mastectomy - right- cancer, Hx Orthopedic Surgery, Hx Tonsillectomy. Denies: Hx Open Heart Surgery, Hx Pacemaker - Immunizations Hx Diphtheria, Pertussis, Tetanus Vaccination: Yes Vertical Provider Document - CONSTITUTIONAL Agree With Documented VS: Yes Exam Limitations: No Limitations - INFECTION CONTROL TRAVEL OUTSIDE OF THE [place] IN LAST 30 DAYS: No - HEENT HEENT: Atraumatic, PERRLA Notes: Right tympanic is dull with small effusion. Right external canal normal - NECK Neck: Other - Mild right trapezius tenderness. - RESPIRATORY Respiratory: Breath Sounds Normal, No Respiratory Distress O2 Sat by Pulse Oximetry: 100 - CARDIOVASCULAR Cardiovascular: Regular Rate - NEURO Level of Consciousness: Awake, Alert, Confused - Pleasantly confused. History of dementia - DERM Integumentary: Warm, Dry, No Rash Course - Re-evaluation Re-evalutation: 04/06/17 19:14 ENT exam is unremarkable. Patient has mild musculoskeletal tenderness over right trapezius. Patient is exhibiting no signs of serious etiology. Will prescribe an anti-histamine. Patient is stable for discharge - Vital Signs Vital signs: Temp Pulse Resp BP Pulse Ox 98.1 F 67 18 149/80 H 100 04/06/17 18:41 04/06/17 18:41 04/06/17 18:41 04/06/17 18:41 04/06/17 18:41 Discharge - Discharge Clinical Impression: Acute serous otitis media, right ear Qualifiers: Recurrence: not specified as recurrent Qualified Code(s): H65.01 - Acute serous otitis media, right ear Condition: Stable Disposition: HOME, SELF-CARE Instructions: Serous Otitis Media ([facility]), Non-Sedating Prescription Antihistamine ([facility]) Additional Instructions: You have fluid behind your right eardrum Take medications as prescribed Follow-up with your primary care if symptoms persist Apply warm compresses/heating pad to sore muscle May use topical anesthetic such as Aspercreme for relief of muscle pain Prescriptions: Cetirizine HCl [Zyrtec] 10 mg PO DAILY #20 tablet Referrals: BJ REESE MD [Primary Care Provider] - Follow up as needed
== END 2017-04-06 19:15 | disposition home or self-care (01) ==
LOC: ER 18:23
DX: H65.01 Acute serous otitis media, right ear (principal); H92.01 Otalgia, right ear; M54.2 Cervicalgia; I10 Essential (primary) hypertension; F17.200 Nicotine dependence, unspecified, uncomplicated
CPT/HCPCS: 99282

== ENCOUNTER 2017-04-23 10:45 | Emergency (ER) | payer MEDICARE ==
[2017-04-23 10:53] VITALS: BP 133/84
[2017-04-23] MEDS ORDERED: DEXAMETHASONE SOD PHOS INJ 10 MG/1 ML VIAL IM ONE (11:15)
[2017-04-23] MEDS ORDERED: ACETAMINOPHEN 325 MG TABLET PO ONE (11:16)
--- NOTE | 2017-04-23 11:28 | ER Document Report ---
HPI - HPI Pain Level: 2 Notes: Patient is a 81-year-old female with a history of chronic neck and ear pain who presents to the ED complaining of continued pain. Patient is accompanied by Sherif. Patient has a history of Alzheimer's. Patient was evaluated last week by ENT who stated that it is most likely her neck and not her ear that is causing her pain. The placed a referral for neurosurgery at that time. Patient was also evaluated by her PCM Dr. Carolina 2 weeks ago who also evaluated the patient and states that it is most likely arthritis after obtaining images. Patient has no other concerns or complaints today. Patient only here because she has continued pain despite being evaluated by multiple providers and having a referral already placed. Patient is not taking any medicines for her pain. Denies any headache, fever, head injury, URI, sore throat, chest pain, palpitations, syncope, cough, shortness of breath, wheeze, dyspnea, abdominal pain, nausea/vomiting/diarrhea, urinary retention, dysuria, hematuria, loss of control of bowel or bladder, numbness/tingling, saddle anesthesia, muscle paralysis/weakness, or rash. - ROS Systems Reviewed and Negative: Yes All other systems reviewed and negative - CONSTITUTIONAL Constitutional: DENIES: Fever, Chills - EENT EENT: REPORTS: Ear Pain - right. DENIES: Sore Throat, Eye problems - NEURO Neurology: DENIES: Headache, Weakness, Vision blurred, Dizzinesss / Vertigo - CARDIOVASCULAR Cardiovascular: DENIES: Chest pain - RESPIRATORY Respiratory: DENIES: Trouble Breathing, Coughing - GASTROINTESTINAL Gastrointestinal: DENIES: Abdominal Pain, Black / Bloody Stools - URINARY Urinary: DENIES: Dysuria, Urgency, Frequency - REPRODUCTIVE Reproductive: DENIES: : - MUSCULOSKELETAL Musculoskeletal: DENIES: Extremity pain Past Medical History - Social History Smoking Status: Unknown if Ever Smoked Family History: Reviewed & Not Pertinent Patient has suicidal ideation: No Patient has homicidal ideation: No - Past Medical History Cardiac Medical History: Reports: Hx Hypertension Denies: Hx Coronary Artery Disease, Hx Heart Attack Pulmonary Medical History: Reports: Hx Bronchitis Denies: Hx Asthma, Hx COPD, Hx Pneumonia Neurological Medical History: Denies: Hx Cerebrovascular Accident, Hx Seizures Renal/ Medical History: Denies: Hx Peritoneal Dialysis GI Medical History: Denies: Hx Hepatitis, Hx Hiatal Hernia, Hx Ulcer Musculoskeltal Medical History: Denies Hx Arthritis Psychiatric Medical History: Reports: Hx Dementia Infectious Medical History: Denies: Hx Hepatitis Past Surgical History: Reports: Hx Hysterectomy, Hx Mastectomy - right- cancer, Hx Orthopedic Surgery, Hx Tonsillectomy. Denies: Hx Open Heart Surgery, Hx Pacemaker - Immunizations Hx Diphtheria, Pertussis, Tetanus Vaccination: Yes Vertical Provider Document - CONSTITUTIONAL Agree With Documented VS: Yes Notes: PHYSICAL EXAMINATION: GENERAL: Well-appearing, well-nourished and in no acute distress. EYES: Pupils equal round and reactive to light, extraocular movements intact, sclera anicteric, conjunctiva are normal. ENT: EAC clear b/l. TM's intact b/l without erythema, fluid, or perforation. Nares patent and without discharge. oropharynx clear without exudates. No tonsilar hypertrophy or erythema. Moist mucous membranes. No sinus tenderness. Neck: FROM. Strength 5+/5. + mild tenderness to the rt c-paraspinal mm. Spurling neg. No midline tenderness. LUNGS: Breath sounds clear to auscultation bilaterally and equal. No wheezes rales or rhonchi. HEART: Regular rate and rhythm without murmurs, rubs, gallops. ABDOMEN: Soft, nontender, nondistended abdomen. No guarding, no rebound. No masses appreciated. Normal bowel sounds present. No CVA tenderness bilaterally. No pulsatile mass Musculoskeletal: Ext's b/l: FROM to passive/active. Strength 5+/5. No deficits noted. No bony tenderness of extremities. N/V intact distal. Back: FROM to passive/active. Strength 5+/5. No vertebral point tenderness, stepoffs, or deformities. No other bony tenderness, erythema, swelling, or ecchymosis. SLR negative b/l. + mild tenderness to the L-paraspinal mm b/l. Mild spasming. No SI jt tenderness. No foot drop Extremities: No cyanosis, clubbing, or edema b/l. Peripheral pulses 2+. Capillary refill less than 2 seconds. NEUROLOGICAL: Normal speech, ataxic gait. Normal sensory, motor exams. Reflexes 2+ b/l. PSYCH: Normal mood, normal affect. SKIN: Warm, Dry, normal turgor, no rashes or lesions noted. - INFECTION CONTROL TRAVEL OUTSIDE OF THE [place] IN LAST 30 DAYS: No - RESPIRATORY O2 Sat by Pulse Oximetry: 100 Course - Re-evaluation Re-evalutation: 04/23/17 11:26 Patient is an afebrile, well-hydrated, 81-year-old female who presents to the ED with cervicalgia and subjective otalgia. Vitals are acceptable. PE is otherwise unremarkable for any focal neurological deficits. No labs or imaging warranted at this time based on H&P. Patient has frequented the ED many times over the last several months for similar complaints. Patient has an ENT specialist but she is seen as well as her PCM which she is seen for the same issue. She has a referral already pending for neurosurgery. Low suspicion for any meningitis, fracture, expanding/ruptured AAA, cauda equina syndrome, epidural mass lesion/abscess, herniated disc causing severe spinal stenosis, mastoiditis, or other systemic infection at this time. Patient is aware that this condition can change from initial presentation and that she needs monitor symptoms closely for any acute changes. Mr. Gorman is also in agreement and verbalized understanding. Conservative measures for symptoms. Decadron and Tylenol given today. Recheck with your PCM in 3-5 days. Keep scheduled appointment with neurosurgery. Return to the ED with any worsening/concerning symptoms otherwise as reviewed discharge. Both are in agreement. - Vital Signs Vital signs: Temp Pulse Resp BP Pulse Ox 97.7 F 82 16 133/84 H 100 04/23/17 10:50 04/23/17 10:50 04/23/17 10:50 04/23/17 10:50 04/23/17 10:50 Discharge - Discharge Clinical Impression: Cervicalgia Otalgia Qualifiers: Laterality: right Qualified Code(s): H92.01 - Otalgia, right ear Condition: Stable Disposition: HOME, SELF-CARE Additional Instructions: Rest, Ice Tylenol/ibuprofen as needed Light stretches daily Strength exercises as able Moist heat and massage may help F/u with your PCP in 3-5 days for a recheck Consider consult(s) with Orthopedics/physical therapy for ongoing/worsening symptoms Return to the ED with any worsening symptoms and/or development of fever, headache, chest pain, palpitations, syncope, shortness of breath, trouble breathing, abdominal pain, n/v/d, muscle weakness/paralysis, numbness/tingling, swelling, redness, or other worsening symptoms that are concerning to you. Forms: Elevated Blood Pressure Referrals: [facility] [Provider Group] - Follow up as needed
== END 2017-04-23 12:08 | disposition home or self-care (01) ==
LOC: ER 10:45
DX: M54.2 Cervicalgia (principal); H92.01 Otalgia, right ear; I10 Essential (primary) hypertension; G30.9 Alzheimer's disease, unspecified; F02.80 Dementia in other diseases classified elsewhere, unspecified severity, without behavioral disturbance, psychotic disturbance, mood disturbance, and anxiety; Z90.710 Acquired absence of both cervix and uterus
CPT/HCPCS: 99282; 96372; A9270; J1100

== ENCOUNTER 2017-05-01 11:52 | Emergency (ER) | payer MEDICARE ==
--- NOTE | 2017-05-01 12:23 | ER Document Report ---
ED General - General Chief Complaint: Ear Pain Stated Complaint: RIGHT EAR AND NECK PAIN Time Seen by Provider: 05/01/17 12:03 Information source: Patient Notes: HPI-I came for general checkup has no discomfort. If I go to a primary care physician they will send to the hospital anyway. This was the comment by the patient. Has no symptoms. REVIEW OF SYSTEMS: CONSTITUTIONAL : Denies fever, chills, or sweats. Denies recent illness. EENT: Denies eye, ear, throat, or mouth pain or symptoms. Denies nasal or sinus congestion or discharge. Denies throat, tongue, or mouth swelling or difficulty swallowing. CARDIOVASCULAR: Denies chest pain. Denies palpitations or racing or irregular heart beat. Denies ankle edema. RESPIRATORY: Denies cough, cold, or chest congestion. Denies shortness of breath, difficulty breathing, or wheezing. GASTROINTESTINAL: Denies abdominal pain or distention. Denies nausea, vomiting , or diarrhea. Denies blood in vomitus, stools, or per rectum. Denies black, tarry stools. Denies constipation. GENITOURINARY: Denies difficulty urinating, painful urination, burning, frequency, blood in urine, or discharge. FEMALE GENITOURINARY: Denies vaginal bleeding, heavy or abnormal periods, irregular periods. Denies vaginal discharge or odor. MUSCULOSKELETAL: Denies back or neck pain or stiffness. Denies joint pain or swelling. SKIN: Denies rash, lesions or sores. HEMATOLOGIC : Denies easy bruising or bleeding. LYMPHATIC: Denies swollen, enlarged glands. NEUROLOGICAL: Denies confusion or altered mental status. Denies passing out or loss of consciousness. Denies dizziness or lightheadedness. Denies headache. Denies weakness or paralysis or loss of use of either side. Denies problems with gait or speech. Denies sensory loss, numbness, or tingling. Denies seizures. PSYCHIATRIC: Denies anxiety or stress. Denies depression, suicidal ideation, or homicidal ideation. ALL OTHER SYSTEMS REVIEWED AND NEGATIVE. PHYSICAL EXAMINATION: GENERAL: Well-appearing, well-nourished and in no acute distress. HEAD: Atraumatic, normocephalic. EYES: Pupils equal round and reactive to light, extraocular movements intact, conjunctiva are normal. ENT: Nares patent, oropharynx clear without exudates. Moist mucous membranes. NECK: Normal range of motion, supple without lymphadenopathy LUNGS: Breath sounds clear to auscultation bilaterally and equal. No wheezes rales or rhonchi. HEART: Regular rate and rhythm without murmurs ABDOMEN: Soft, nontender, nondistended abdomen. No guarding, no rebound. No masses appreciated. Female : deferred Musculoskeletal: Normal range of motion, no pitting or edema. No cyanosis. NEUROLOGICAL: Cranial nerves grossly intact. Normal speech, normal gait. Normal sensory, motor exams PSYCH: Normal mood, normal affect. SKIN: Warm, Dry, normal turgor, no rashes or lesions noted. Dictation was performed using [employer] voice recognition software TRAVEL OUTSIDE OF THE [place] IN LAST 30 DAYS: No - Related Data Allergies/Adverse Reactions: Penicillins Allergy (Verified 04/06/17 18:50) rofecoxib [From Vioxx] Allergy (Verified 04/06/17 18:50) Sulfa (Sulfonamide Antibiotics) Allergy (Verified 04/06/17 18:50) Past Medical History - Social History Smoking Status: Never Smoker Cigarette use (# per day): No Chew tobacco use (# tins/day): No Smoking Education Provided: No Frequency of alcohol use: Rare Drug Abuse: None Family History: Reviewed & Not Pertinent - Past Medical History Cardiac Medical History: Reports: Hx Hypertension Denies: Hx Coronary Artery Disease, Hx Heart Attack Pulmonary Medical History: Reports: Hx Bronchitis Denies: Hx Asthma, Hx COPD, Hx Pneumonia Neurological Medical History: Denies: Hx Cerebrovascular Accident, Hx Seizures Renal/ Medical History: Denies: Hx Peritoneal Dialysis GI Medical History: Denies: Hx Hepatitis, Hx Hiatal Hernia, Hx Ulcer Musculoskeltal Medical History: Denies Hx Arthritis Psychiatric Medical History: Reports: Hx Dementia Infectious Medical History: Denies: Hx Hepatitis Past Surgical History: Reports: Hx Hysterectomy, Hx Mastectomy - right- cancer, Hx Orthopedic Surgery, Hx Tonsillectomy. Denies: Hx Open Heart Surgery, Hx Pacemaker - Immunizations Hx Diphtheria, Pertussis, Tetanus Vaccination: Yes Physical Exam - Vital signs Vitals: Temp Pulse Resp BP 97.5 F 72 18 134/77 H 05/01/17 12:07 05/01/17 12:07 05/01/17 12:07 05/01/17 12:07 Course - Re-evaluation Re-evalutation: 05/01/17 13:53 Patient was reevaluated by nurse as well as P. Please review the nurse's note. Patient has dementia. 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 No suicidal ideation. - Vital Signs Vital signs: Temp Pulse Resp BP Pulse Ox 97.6 F 77 17 131/84 H 100 05/01/17 14:15 05/01/17 14:15 05/01/17 14:15 05/01/17 14:15 05/01/17 14:15 - Laboratory Result Diagrams: 05/01/17 12:55 05/01/17 12:55 Laboratory results interpreted by me: 05/01/17 12:55 Sodium 147.1 H Chloride 114 H BUN 30 H Est GFR ( Amer) 56 L Est GFR (Non-Af Amer) 46 L AST 42 H Alkaline Phosphatase 149 H Discharge - Discharge Clinical Impression: Ear ache Dementia Qualifiers: Dementia type: Alzheimer's disease Alzheimer's disease onset: late-onset Dementia behavioral disturbance: with behavioral disturbance Qualified Code(s): G30.1 - Alzheimer's disease with late onset Condition: Fair Disposition: HOME, SELF-CARE Instructions: Dementia ([facility]) Prescriptions: Neomy Sulf/Polymyx B Sulf/Hc [Cortisporin Otic Susp] 1 drop QID #1 bottle
[2017-05-01 13:26] LABS: HEMOGLOBIN 12.8 g/dL (12.0-15.5); MEAN CORPUSCULAR HEMOGLOBIN 31.4 pg (27.0-33.4); MEAN CORPUSCULAR HGB CONC 32.9 g/dL (32.0-36.0); MEAN CORPUSCULAR VOLUME 95 fl (80-97); PLATELET COUNT 301 10^3/uL (150-450); RED BLOOD COUNT 4.08 10^6/uL (3.72-5.28); WHITE BLOOD COUNT 8.9 10^3/uL (4.0-10.5)
[2017-05-01 13:29] LABS: ALANINE AMINOTRANSFERASE 51 U/L (9-52); ALBUMIN 4.2 g/dL (3.5-5.0); ALKALINE PHOSPHATASE 149 U/L (38-126); ANION GAP 10 (5-19); ASPARTATE AMINO TRANSFERASE 42 U/L (14-36); BILIRUBIN,DIRECT 0.4 mg/dL (0.0-0.4); BILIRUBIN,TOTAL 0.4 mg/dL (0.2-1.3); BLOOD UREA NITROGEN 30 mg/dL (7-20); CALCIUM 9.7 mg/dL (8.4-10.2); CARBON DIOXIDE 23 mmol/L (22-30); CHLORIDE 114 mmol/L (98-107); GLUCOSE 110 mg/dL (75-110); POTASSIUM 4.3 mmol/L (3.6-5.0); SODIUM 147.1 mmol/L (137-145); TOTAL PROTEIN 6.9 g/dL (6.3-8.2)
[2017-05-01 15:40] VITALS: BP 131/84
== END 2017-05-01 14:23 | disposition home or self-care (01) ==
LOC: ER 11:52
DX: H92.01 Otalgia, right ear (principal); G30.1 Alzheimer's disease with late onset; F02.81 Dementia in other diseases classified elsewhere, unspecified severity, with behavioral disturbance; I10 Essential (primary) hypertension; Z88.0 Allergy status to penicillin; Z88.2 Allergy status to sulfonamides; Z88.8 Allergy status to other drugs, medicaments and biological substances
CPT/HCPCS: 36415; 80053; 85027; 99283

== ENCOUNTER 2017-06-05 13:23 | Emergency (ER) | payer MEDICARE ==
[2017-06-05 13:44] VITALS: BP 155/88
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
== END 2017-06-05 14:39 | disposition home or self-care (01) ==
LOC: ER 13:23
DX: Z71.1 Person with feared health complaint in whom no diagnosis is made (principal); F03.90 Unspecified dementia, unspecified severity, without behavioral disturbance, psychotic disturbance, mood disturbance, and anxiety; M54.2 Cervicalgia; G89.29 Other chronic pain; I10 Essential (primary) hypertension
CPT/HCPCS: 99284

== ENCOUNTER → 2017-06-11 | Outpatient (CLI) | payer MEDICARE ==
--- NOTE | 2017-06-11 14:17 | RADIOLOGY REPORT (SQ) ---
EXAM DESCRIPTION: MRI HEAD WITHOUT COMPLETED DATE/TIME: 06/11/2017 11:30 am REASON FOR STUDY: RADICULOPATHY CERVICAL REGION, OTALGIA RIGHT EAR M54.12 RADICULOPATHY, CERVICAL R EGION H92.01 OTALGIA, RIGHT EAR COMPARISON: None. TECHNIQUE: Multiplanar imaging includes non-contrasted T1, T2, FLAIR, and diffusion with ADC map seq uences. Images stored on PACS. LIMITATIONS: None. FINDINGS: ANATOMY: No anomalies. Normal vascular flow voids. Pituitary fossa normal. CSF SPACES: Atrophy induced prominence of ventricles and CSF spaces. CEREBRUM: High signal intensity lesions scattered throughout the white matter on FLAIR imaging with d istribution suggesting micro-vascular ischemic changes. No evidence of hemorrhage, mass, or extraaxi al fluid collection. POSTERIOR FOSSA: No signal alteration. No hemorrhage. No edema, masses or mass effect. Internal romain tory canals, cerebello-pontine angles, mastoids normal. DIFFUSION IMAGING: Negative for acute or sub-acute infarction. ORBITS: No masses. Globes normal. PARANASAL SINUSES: No fluid levels. Mucosa normal. OTHER: No other significant finding. IMPRESSION: ATROPHY AND CHRONIC MICRO-VASCULAR ISCHEMIC CHANGES. OTHERWISE NORMAL MRI OF THE BRAIN W ITHOUT INTRAVENOUS GADOLINIUM CONTRAST. EVIDENCE OF ACUTE STROKE: NO. TECHNICAL DOCUMENTATION: JOB ID: [id number] [employer]- All Rights Reserved Reading location - IP/workstation name: [email or web address]
--- NOTE | 2017-06-11 14:31 | RADIOLOGY REPORT (SQ) ---
EXAM DESCRIPTION: MRI CERVICAL SPINE WITHOUT COMPLETED DATE/TIME: 06/11/2017 11:31 am REASON FOR STUDY: RADICULOPATHY CERVICAL REGION, [place] RIGHT EAR M54.12 RADICULOPATHY, CERVICAL R EGION H92.01 [place], RIGHT EAR COMPARISON: None. TECHNIQUE: Sagittal and Axial imaging includes T1, T2, STIR and gradient echo sequences. LIMITATIONS: Initial T2 sequence nondiagnostic due to motion, necessitating repeat scan. Remainder of the scans are of relatively good diagnostic quality with only mild motion artifact. FINDINGS: ALIGNMENT: Normal. VERTEBRAE: Intact. BONE MARROW: Normal. No marrow replacement or reactive changes. DISCS: Multilevel disc osteophyte complexes with diminished disc signal and height. HARDWARE: None in the spine. CORD AND BASE OF BRAIN: Normal in size and signal intensity. SOFT TISSUES: Dorsal subcutaneous well-circumscribed hyperintense T2 mass in the midline. Probable s ebaceous cyst. 1.4 cm transverse dimension. C1-C2: No significant spinal stenosis. C2-C3: No significant spinal stenosis or exit foraminal stenosis. C3-C4: Disc osteophyte complex effaces the anterior CSF space and contacts the cord without flattenin g. Posterior ligament thickening effaces the posterior CSF space. Marked left foraminal stenosis. C4-C5: Disc osteophyte complex contacts the cord without mass effect. Moderate -marked right and mar ked left foraminal stenosis. C5-C6: Disc osteophyte complex contacts the cord without mass effect. Bilateral relatively marked fo raminal stenosis. C6-C7: Disc osteophyte complex without mass effect on the cord. Bilateral relatively marked foramina l stenosis. C7-T1: Slight degenerative malalignment. Bilateral foraminal narrowing looks moderate. No central s tenosis or cord compression. UPPER THORACIC: Spondylosis. No high-grade stenosis or cord compression. T2-3 superiorly extending disc extrusion is likely. OTHER: No other significant finding. IMPRESSION: Multilevel cervical spondylosis as above. TECHNICAL DOCUMENTATION: JOB ID: [id number]- All Rights Reserved Reading location - IP/workstation name: [email or web address]
== END ==
LOC: RAD 09:46
PROVIDERS: ATTEND Pain Medicine Interventional Pain Medicine
DX: M54.12 Radiculopathy, cervical region (principal); H92.01 Otalgia, right ear
CPT/HCPCS: 70551; 72141

== ENCOUNTER 2017-06-25 16:10 | Emergency (ER) | payer MEDICARE ==
[2017-06-25] MEDS ORDERED: ASPIRIN 81 MG TABLET, CHEWABLE PO ONE (16:39)
--- NOTE | 2017-06-25 16:43 | ER Document Report ---
ED Medical Screen (RME) - General Chief Complaint: Fever Stated Complaint: FEVER, EAR PAIN Time Seen by Provider: 06/25/17 16:30 Notes: 81-year-old female who is an inconsistent historian presents the emergency department initially stating that she came in because of a right-sided earache that has been going on for a few days, while in the triage love patient started complaining of severe nausea and moderate epigastric pain. States that that had not been going on until just now. When asked to further clarify the duration of her ear pain she stated that the ear pain has been going on for months and she always has a constant earache on the right-hand side however when I asked her why she came in if the earache has been going on for months on the right-hand side she stated that it was because her stomach had been feeling somewhat uncomfortable. A few minutes later the patient stated "I do not think I told you but I have an earache on this right-hand side, this is really way came in, could you look in my ear?" I had just finished looking in the patient' s ear. States the pain radiates from her ear into her neck and right shoulder. TRAVEL OUTSIDE OF THE [place] IN LAST 30 DAYS: No - Related Data Allergies/Adverse Reactions: Penicillins Allergy (Verified 06/25/17 16:15) rofecoxib [From Vioxx] Allergy (Verified 06/25/17 16:15) Sulfa (Sulfonamide Antibiotics) Allergy (Verified 06/25/17 16:15) Past Medical History - General Information source: Patient - Social History Cigarette use (# per day): Yes Chew tobacco use (# tins/day): No Frequency of alcohol use: Rare Drug Abuse: None - Past Medical History Cardiac Medical History: Reports: Hx Hypertension Denies: Hx Coronary Artery Disease, Hx Heart Attack Pulmonary Medical History: Reports: Hx Bronchitis Denies: Hx Asthma, Hx COPD, Hx Pneumonia Neurological Medical History: Denies: Hx Cerebrovascular Accident, Hx Seizures Renal/ Medical History: Denies: Hx Peritoneal Dialysis GI Medical History: Denies: Hx Hepatitis, Hx Hiatal Hernia, Hx Ulcer Musculoskeltal Medical History: Denies Hx Arthritis Psychiatric Medical History: Reports: Hx Dementia Infectious Medical History: Denies: Hx Hepatitis Past Surgical History: Reports: Hx Hysterectomy, Hx Mastectomy - right- cancer, Hx Orthopedic Surgery, Hx Tonsillectomy. Denies: Hx Open Heart Surgery, Hx Pacemaker - Immunizations Hx Diphtheria, Pertussis, Tetanus Vaccination: Yes Review of Systems - Review of Systems Constitutional: No symptoms reported EENT: See HPI Cardiovascular: denies: Chest pain Respiratory: No symptoms reported Gastrointestinal: See HPI Physical Exam - Vital signs Vitals: Temp Pulse Resp BP Pulse Ox 97.9 F 100 16 146/84 H 98 06/25/17 16:14 06/25/17 16:14 06/25/17 16:14 06/25/17 16:14 06/25/17 16:14 Interpretation: Hypertensive - General General appearance: Alert In distress: Mild - Gagging, taking deep breaths and holding the emesis back near her mouth. No actual vomiting. No retching. - HEENT Head: Normocephalic, Atraumatic Eyes: Normal Extraocular movements intact: Yes Pupils: PERRL Ears: Normal External canal: Normal - Small amount of dry skin bilateral ear canals otherwise no abnormalities. Tympanic membrane: Normal Sinus: Normal Nasal: Clear rhinorrhea Mouth/Lips: Normal Mucous membranes: Normal Pharynx: Normal Neck: Normal - Respiratory Respiratory status: No respiratory distress Chest status: Nontender Breath sounds: Normal Chest palpation: Normal - Cardiovascular Rhythm: Regular Heart sounds: Normal auscultation Murmur: No - Abdominal Inspection: Normal Distension: No distension Bowel sounds: Normal Tenderness: Tender - Moderate epigastric tenderness to palpation. Organomegaly: No organomegaly Course - Vital Signs Vital signs: Temp Pulse Resp BP Pulse Ox 97.9 F 100 16 146/84 H 98 06/25/17 16:14 06/25/17 16:14 06/25/17 16:14 06/25/17 16:14 06/25/17 16:14
[2017-06-25 17:23] LABS: ABSOLUTE BASOPHILS # (AUTO) 0.1 10^3/uL (0.0-0.2); ABSOLUTE EOSINOPHILS # (AUTO) 0.1 10^3/uL (0.0-0.6); ABSOLUTE LYMPHOCYTES (AUTO) 1.8 10^3/uL (0.5-4.7); ABSOLUTE MONOCYTES (AUTO) 0.5 10^3/uL (0.1-1.4); ABSOLUTE NEUT (AUTO) 5.5 10^3/uL (1.7-8.2); BASOPHILS % (AUTO) 0.7 % (0-2); EOSINOPHILS % (AUTO) 0.8 % (0-6); HEMATOCRIT 43.6 % (36.0-47.0); HEMOGLOBIN 14.4 g/dL (12.0-15.5); LYMPHOCYTES % (AUTO) 23.2 % (13-45); MEAN CORPUSCULAR HEMOGLOBIN 31.2 pg (27.0-33.4); MEAN CORPUSCULAR HGB CONC 33.1 g/dL (32.0-36.0); MEAN CORPUSCULAR VOLUME 94 fl (80-97); PLATELET COUNT 400 10^3/uL (150-450); RED BLOOD COUNT 4.61 10^6/uL (3.72-5.28); RED CELL DISTRIBUTION WIDTH 14.2 % (11.5-14.0); SEGMENTED NEUTROPHILS % (AUTO) 69.3 % (42-78); TOTAL CELLS COUNTED % (AUTO) 100 %; WHITE BLOOD COUNT 7.9 10^3/uL (4.0-10.5)
[2017-06-25] MEDS ORDERED: HYDROCODONE/ACETAMINOPHEN 5-325 MG TABLET PO ONE (17:29)
--- NOTE | 2017-06-25 17:29 | ER Document Report ---
ED General - General Chief Complaint: Fever Stated Complaint: FEVER, EAR PAIN Time Seen by Provider: 06/25/17 16:30 Mode of Arrival: Ambulatory Information source: Patient Notes: 81-year-old female presents with complaints of right earache, she is adamant that it is coming from her ear pain down her neck. Patient is unclear how long this been going on for appears to have dementia. Patient denies any fevers or chills denies any nausea vomiting or diarrhea denies any chest pain notes when she turns her head to the left her neck hurts TRAVEL OUTSIDE OF THE [place] IN LAST 30 DAYS: No - HPI Onset: Other - Unclear Onset/Duration: Intermittent - Related Data Allergies/Adverse Reactions: Penicillins Allergy (Verified 06/25/17 16:15) rofecoxib [From Vioxx] Allergy (Verified 06/25/17 16:15) Sulfa (Sulfonamide Antibiotics) Allergy (Verified 06/25/17 16:15) Past Medical History - General Information source: Patient - Social History Smoking Status: Current Every Day Smoker Cigarette use (# per day): Yes Chew tobacco use (# tins/day): No Frequency of alcohol use: Rare Drug Abuse: None Family History: Reviewed & Not Pertinent Patient has suicidal ideation: No Patient has homicidal ideation: No - Past Medical History Cardiac Medical History: Reports: Hx Hypertension Denies: Hx Coronary Artery Disease, Hx Heart Attack Pulmonary Medical History: Reports: Hx Bronchitis Denies: Hx Asthma, Hx COPD, Hx Pneumonia Neurological Medical History: Denies: Hx Cerebrovascular Accident, Hx Seizures Renal/ Medical History: Denies: Hx Peritoneal Dialysis GI Medical History: Denies: Hx Hepatitis, Hx Hiatal Hernia, Hx Ulcer Musculoskeltal Medical History: Denies Hx Arthritis Psychiatric Medical History: Reports: Hx Dementia Infectious Medical History: Denies: Hx Hepatitis Past Surgical History: Reports: Hx Hysterectomy, Hx Mastectomy - right- cancer, Hx Orthopedic Surgery, Hx Tonsillectomy. Denies: Hx Open Heart Surgery, Hx Pacemaker - Immunizations Hx Diphtheria, Pertussis, Tetanus Vaccination: Yes Physical Exam - Vital signs Vitals: Temp Pulse Resp BP Pulse Ox 97.9 F 100 16 146/84 H 98 06/25/17 16:14 06/25/17 16:14 06/25/17 16:14 06/25/17 16:14 06/25/17 16:14 Course - Re-evaluation Re-evalutation: 06/25/17 18:32 Patient's notes that this is approximately the 13th time she has been seen for the same pain that an MRI was performed of the neck and appears to be cervical related and that [facility] pain [facility] will be doing an injection in a few days. They note that they just want some pain control for her that she does have significant history of dementia I will provide pain control After performing a Medical Screening Examination, I estimate there is LOW risk for CENTRAL CORD SYNDROME, LUDWIGS ANGINA, PERITONSILLAR ABSCESS, RETROPHARYNGEAL ABSCESS, EPIDURAL MASS LESION, SEVERE SPINAL STENOSIS, ARTERIAL DISSECTION, MENINGITIS, or ACUTE CORONARY SYNDROME, thus I consider the discharge disposition reasonable. I have reevaluated this patient multiple times and no significant life threatening changes are noted. The patient and I have discussed the diagnosis and risks, and we agree with discharging home to follow-up on an outpatient basis with the understanding that symptoms and presentations can change. We also discussed returning to the Emergency Department immediately if new or worsening symptoms occur. We have discussed the symptoms which are most concerning (e.g., saddle anesthesia, urinary or bowel incontinence or retention, changing or worsening pain) that necessitate immediate return. - Vital Signs Vital signs: Temp Pulse Resp BP Pulse Ox 97.6 F 89 16 126/87 H 99 06/25/17 18:11 06/25/17 18:11 06/25/17 17:00 06/25/17 18:11 06/25/17 18:11 - Laboratory Result Diagrams: 06/25/17 17:10 06/25/17 17:10 Laboratory results interpreted by me: 06/25/17 06/25/17 17:10 17:10 RDW 14.2 H Chloride 111 H Carbon Dioxide 17 L BUN 27 H Est GFR (Non-Af Amer) 59 L Glucose 118 H AST 43 H Alkaline Phosphatase 170 H Discharge - Discharge Clinical Impression: Ear ache Cervical strain Qualifiers: Encounter type: sequela Qualified Code(s): S16.1XXS - Strain of muscle, fascia and tendon at neck level, sequela Condition: Stable Disposition: HOME, SELF-CARE Prescriptions: Hydrocodone/Acetaminophen [Bastian 5-325 mg Tablet] 1 tab PO Q6 #10 tablet Referrals: BJ REESE MD [Primary Care Provider] - Follow up tomorrow
[2017-06-25 17:40] LABS: ALANINE AMINOTRANSFERASE 52 U/L (9-52); ALBUMIN 3.8 g/dL (3.5-5.0); ALKALINE PHOSPHATASE 170 U/L (38-126); ANION GAP 14 (5-19); ASPARTATE AMINO TRANSFERASE 43 U/L (14-36); BILIRUBIN,DIRECT 0.3 mg/dL (0.0-0.4); BILIRUBIN,TOTAL 0.3 mg/dL (0.2-1.3); BLOOD UREA NITROGEN 27 mg/dL (7-20); CALCIUM 9.3 mg/dL (8.4-10.2); CARBON DIOXIDE 17 mmol/L (22-30); CHLORIDE 111 mmol/L (98-107); CREATINE KINASE 47 U/L (30-135); GLUCOSE 118 mg/dL (75-110); LIPASE 74.1 U/L (23-300); SODIUM 142.3 mmol/L (137-145); TOTAL PROTEIN 6.3 g/dL (6.3-8.2)
[2017-06-25 17:52] LABS: CREATINE KINASE MB 1.91 ng/mL (<4.55); TROPONIN I 0.014 ng/mL
[2017-06-25] MEDS ORDERED: OXYCODONE-ACETAMINOPHEN 5-325 MG TABLET PO ONE (17:53)
[2017-06-25 18:14] VITALS: BP 126/87
--- NOTE | 2017-06-28 07:36 | EKG REPORT ---
SEVERITY:- ABNORMAL ECG - SINUS RHYTHM RIGHT BUNDLE BRANCH BLOCK LAFB : Confirmed by: Broderick Boss MD 28-Jun-2017 07:34:59
== END 2017-06-25 18:40 | disposition home or self-care (01) ==
LOC: ER 16:10
DX: H92.01 Otalgia, right ear (principal); S16.1XXS Strain of muscle, fascia and tendon at neck level, sequela; X58.XXXS Exposure to other specified factors, sequela; I10 Essential (primary) hypertension; F17.210 Nicotine dependence, cigarettes, uncomplicated; Z88.0 Allergy status to penicillin; Z88.2 Allergy status to sulfonamides; Z88.8 Allergy status to other drugs, medicaments and biological substances
CPT/HCPCS: 93005; 99284; 36415; 82553; 82550; 83690; 85025; 80053; 84484; 93010; A9270 ×3

== ENCOUNTER 2017-06-27 11:44 | Emergency (ER) | payer MEDICARE ==
[2017-06-27 12:06] VITALS: BP 118/63
--- NOTE | 2017-06-27 12:35 | ER Document Report ---
ED Medical Screen (RME) - General Chief Complaint: Headache Stated Complaint: EAR/SHOULDER PAIN Time Seen by Provider: 06/27/17 12:27 Notes: RAPID MEDICAL EVALUATION DISCLOSURE I have seen this patient as part of a Rapid Medical Evaluation and, if applicable, placed any initially appropriate orders. The patient will be seen and fully evaluated, including a full history and physical exam, by a provider ( in Main ED or Fast Track) when a room becomes available. 81-year-old female here sent from her PCP office because "they told us to bring her over here right away because she may be having a major heart attack". However the family member with the patient states he has no clue why Dr. Carolina came to this conclusion since he was now with the patient during her actual appointment today. The patient denies having any chest pain shortness of breath but states she has felt nauseous and "just not feeling well". She has also been having some jaw and neck pain however also states she has been diagnosed with arthritis in the area. She is a poor historian (as well as the family member) and I am unable to obtain an accurate history or review of systems for this reason. The patient denies any current chest pain or that she had any previous to the visit today. EXAM CTAB RRR TRAVEL OUTSIDE OF THE [place] IN LAST 30 DAYS: No - Related Data Allergies/Adverse Reactions: Penicillins Allergy (Verified 06/25/17 16:15) rofecoxib [From Vioxx] Allergy (Verified 06/25/17 16:15) Sulfa (Sulfonamide Antibiotics) Allergy (Verified 06/25/17 16:15) Past Medical History - Social History Frequency of alcohol use: Social Drug Abuse: None - Past Medical History Cardiac Medical History: Reports: Hx Hypertension Denies: Hx Coronary Artery Disease, Hx Heart Attack Pulmonary Medical History: Reports: Hx Bronchitis Denies: Hx Asthma, Hx COPD, Hx Pneumonia Neurological Medical History: Denies: Hx Cerebrovascular Accident, Hx Seizures Renal/ Medical History: Denies: Hx Peritoneal Dialysis GI Medical History: Denies: Hx Hepatitis, Hx Hiatal Hernia, Hx Ulcer Musculoskeltal Medical History: Denies Hx Arthritis Psychiatric Medical History: Reports: Hx Dementia Infectious Medical History: Denies: Hx Hepatitis Past Surgical History: Reports: Hx Hysterectomy, Hx Mastectomy - right- cancer, Hx Orthopedic Surgery, Hx Tonsillectomy. Denies: Hx Open Heart Surgery, Hx Pacemaker - Immunizations Hx Diphtheria, Pertussis, Tetanus Vaccination: Yes Physical Exam - Vital signs Vitals: Temp Pulse Resp BP Pulse Ox 97.9 F 86 17 118/63 98 06/27/17 12:03 06/27/17 12:03 06/27/17 12:03 06/27/17 12:03 06/27/17 12:03 Course - Vital Signs Vital signs: Temp Pulse Resp BP Pulse Ox 97.9 F 86 17 118/63 98 06/27/17 12:03 06/27/17 12:03 06/27/17 12:03 06/27/17 12:03 06/27/17 12:03
--- NOTE | 2017-06-27 12:52 | RADIOLOGY REPORT (SQ) ---
EXAM DESCRIPTION: CHEST 2 VIEWS COMPLETED DATE/TIME: 06/27/2017 12:44 pm REASON FOR STUDY: CP COMPARISON: Two-view chest 02/10/2016, 11/06/2010 EXAM PARAMETERS: NUMBER OF VIEWS: two views TECHNIQUE: Digital Frontal and Lateral radiographic views of the chest acquired. RADIATION DOSE: NA LIMITATIONS: none FINDINGS: LUNGS AND PLEURA: No opacities, masses or pneumothorax. No pleural effusion. MEDIASTINUM AND HILAR STRUCTURES: No masses or contour abnormalities. HEART AND VASCULAR STRUCTURES: Heart normal size. No evidence for failure. BONES: Degenerative changes thoracic spine. Bones are osteoporotic HARDWARE: Surgical clips right axilla post mastectomy. Clips right upper quadrant post cholecystecto my. OTHER: No other significant finding. IMPRESSION: NO ACUTE RADIOGRAPHIC FINDING IN THE CHEST. TECHNICAL DOCUMENTATION: JOB ID: [id number] [employer]- All Rights Reserved Reading location - IP/workstation name: [email or web address]
== END 2017-06-27 16:30 | disposition left against medical advice (07) ==
LOC: ER 11:44
DX: R11.0 Nausea (principal); M19.90 Unspecified osteoarthritis, unspecified site; M54.2 Cervicalgia; R68.84 Jaw pain; I10 Essential (primary) hypertension; Z53.20 Procedure and treatment not carried out because of patient's decision for unspecified reasons; Z88.0 Allergy status to penicillin; Z88.2 Allergy status to sulfonamides; Z88.8 Allergy status to other drugs, medicaments and biological substances
CPT/HCPCS: 71046; 99281

== ENCOUNTER 2017-07-02 14:40 | Emergency (ER) | payer MEDICARE ==
[2017-07-02 14:48] VITALS: BP 123/80
[2017-07-02] MEDS ORDERED: ACETAMINOPHEN 325 MG TABLET PO ONE (15:13)
--- NOTE | 2017-07-02 15:21 | ER Document Report ---
ED ENT - General Chief Complaint: Ear Pain Stated Complaint: EAR PAIN Time Seen by Provider: 07/02/17 14:58 Mode of Arrival: Ambulatory Information source: Patient TRAVEL OUTSIDE OF THE [place] IN LAST 30 DAYS: No - HPI Patient complains to provider of: Ear problem Notes: Patient is here with complaints of right ear pain as well as right neck pain. Patient tells me that the pain started this morning, but in reviewing her records, the patient has been seen her multiple times for the same exact complaints. Patient does have a history of dementia. She recently had an MRI within the last 20 days showing chronic changes with no acute abnormality of the brain and cervical spondylosis of the cervical spine. She denies any fever. No nausea, vomiting, diarrhea. No rash. No injury. No numbness, tingling, weakness. No chest pain or shortness of breath. Nothing makes her symptoms better or worse. She denies any other complaints. - Related Data Allergies/Adverse Reactions: Penicillins Allergy (Verified 07/02/17 14:41) rofecoxib [From Vioxx] Allergy (Verified 07/02/17 14:41) Sulfa (Sulfonamide Antibiotics) Allergy (Verified 07/02/17 14:41) Past Medical History - Social History Smoking Status: Never Smoker Chew tobacco use (# tins/day): No Family History: Reviewed & Not Pertinent Patient has suicidal ideation: No Patient has homicidal ideation: No - Past Medical History Cardiac Medical History: Reports: Hx Hypertension Denies: Hx Coronary Artery Disease, Hx Heart Attack Pulmonary Medical History: Reports: Hx Bronchitis Denies: Hx Asthma, Hx COPD, Hx Pneumonia Neurological Medical History: Denies: Hx Cerebrovascular Accident, Hx Seizures Renal/ Medical History: Denies: Hx Peritoneal Dialysis GI Medical History: Denies: Hx Hepatitis, Hx Hiatal Hernia, Hx Ulcer Musculoskeltal Medical History: Denies Hx Arthritis Psychiatric Medical History: Reports: Hx Dementia Infectious Medical History: Denies: Hx Hepatitis Past Surgical History: Reports: Hx Hysterectomy, Hx Mastectomy - right- cancer, Hx Orthopedic Surgery, Hx Tonsillectomy. Denies: Hx Open Heart Surgery, Hx Pacemaker - Immunizations Hx Diphtheria, Pertussis, Tetanus Vaccination: Yes Review of Systems - Review of Systems -: Yes All other systems reviewed and negative Physical Exam - Vital signs Vitals: Temp Pulse Resp BP Pulse Ox 98.0 F 100 18 123/80 100 05/26/18 14:46 07/02/17 14:46 07/02/17 14:46 07/02/17 14:46 07/02/17 14:46 - Notes Notes: GENERAL: alert, cooperative, nontoxic, no distress. HEAD: normocephalic, atraumatic EYES: conjunctiva pink without discharge, no external redness or swelling. EARS: no external swelling, no external redness, no mastoid redness, swelling, tenderness. Ear canals are clear without swelling or drainage. TMs pearly mayer , no redness, no bulging, normal landmarks, no perforation. NOSE: atraumatic, no external swelling. clear rhinorrhea noted. MOUTH/THROAT: mucous membranes moist and pink, posterior pharynx without erythema, swelling, exudate. No trismus or drooling. NECK: soft, supple, full range of motion, no meningismus. Mild tenderness to the right lateral neck. No mass or swelling. CHEST: no distress, lungs clear and equal throughout. No wheezing, rales, rhonchi. CARDIAC: regular rate and rhythm, no murmur, normal capillary refill, normal pulses. No peripheral edema noted. BACK: full range of motion, no CVA tenderness. EXTREMITIES: full range of motion of all extremities. No redness, no swelling. NEURO: alert and oriented A&O3, no focal deficits, full range of motion of all extremities. 5 out of 5 flexion extension of the upper extremities bilaterally. Normal sensation. PYSCH: appropriate mood, affect. Patient is cooperative. SKIN: pink, warm, dry, no rash. Course - Re-evaluation Re-evalutation: 07/02/17 15:17 Patient is nontoxic appearing with stable vitals. She is here with complaints of right ear pain as well as right neck and shoulder pain. Patient tells me that the pain started this morning. In reviewing her records, she has been seen here multiple times for the same exact complaint. Patient does have a history of dementia. She was seen earlier this month and had MRI of the brain and cervical spine showing no acute abnormalities with some cervical spondylosis. Patient is likely having some radicular symptoms due to her degenerative changes in her neck. This point the patient has no signs of infection, otitis media, otitis externa, mastoiditis. She has no deficits to her upper extremities. The patient will be given Tylenol for pain. She will be instructed to take Tylenol as needed for pain. Drink plenty fluids. Follow- up with ENT or her primary care doctor at the next available appointment, sooner for worsening symptoms, high fever, persistent vomiting, or for any further concerns. The patient's emergency department workup and current diagnosis were explained to the patient and or family. Follow-up instructions were provided. Medications if prescribed were discussed. Instructions for when to return to the emergency department including specific worrisome symptoms were discussed with the patient and/or family. The patient is noted to have elevated blood pressure during today's emergency department visit. The patient was informed of this finding. The patient was instructed that this may be related to pre-hypertension and requires further evaluation with a primary care provider. The patient has no hypertensive symptoms at this time. - Vital Signs Vital signs: Temp Pulse Resp BP Pulse Ox 98.0 F 100 18 123/80 100 07/02/17 14:46 07/02/17 14:46 07/02/17 14:46 07/02/17 14:46 07/02/17 14:46 Discharge - Discharge Clinical Impression: Otalgia of right ear, Cervical radiculopathy Condition: Stable Disposition: HOME, SELF-CARE Instructions: Radiculopathy ([facility]), Family Physicians / Practices Additional Instructions: Take Tylenol as needed for pain. Follow-up with your primary care doctor or ear nose and throat doctor at the next available appointment. Follow-up sooner for worsening pain, fever, drainage, redness or swelling to the outside of the ear, weakness in the arm, or for any further concerns. Your blood pressure was elevated during today's visit. Have this rechecked with your doctor. Forms: Elevated Blood Pressure Referrals: DEISY PECK DO [ASSOCIATE] - Follow up as needed
== END 2017-07-02 15:33 | disposition home or self-care (01) ==
LOC: ER 14:40
DX: H92.01 Otalgia, right ear (principal); M54.12 Radiculopathy, cervical region; M47.9 Spondylosis, unspecified; I10 Essential (primary) hypertension; Z88.0 Allergy status to penicillin; Z88.2 Allergy status to sulfonamides; Z88.8 Allergy status to other drugs, medicaments and biological substances
CPT/HCPCS: 99282; A9270

== ENCOUNTER 2017-07-10 11:42 | Emergency (ER) | payer MEDICARE ==
[2017-07-10 11:52] VITALS: BP 123/76
[2017-07-10] MEDS ORDERED: NORMAL SALINE 1000 ML 1,000 ML IV ONE (12:11)
--- NOTE | 2017-07-10 12:13 | ER Document Report ---
ED Medical Screen (RME) - General Chief Complaint: Weakness Stated Complaint: WEAKNESS Time Seen by Provider: 07/10/17 12:07 Mode of Arrival: Ambulatory Information source: Patient, Relative Notes: 81-year-old female history dementia with chronic right ear pain which they believe is due to cervical impingement based on MRI who received a steroid injection on Tuesday presents with complaints of generalized weakness Patient denies any other pain I have greeted and performed a rapid initial assessment of this patient. A comprehensive ED assessment and evaluation of the patient, analysis of test results and completion of the medical decision making process will be conducted by additional ED providers. PHYSICAL EXAMINATION: GENERAL: Well-appearing, well-nourished and in no acute distress. HEAD: Atraumatic, normocephalic. EYES: Pupils equal round extraocular movements intact, conjunctiva are normal. ENT: Nares patent NECK: Normal range of motion LUNGS: No respiratory distress Musculoskeletal: Normal range of motion NEUROLOGICAL: Normal speech, normal gait. PSYCH: Normal mood, normal affect. SKIN: Warm, Dry, normal turgor, no rashes or lesions noted. TRAVEL OUTSIDE OF THE [place] IN LAST 30 DAYS: No - Related Data Allergies/Adverse Reactions: Penicillins Allergy (Verified 07/02/17 14:41) rofecoxib [From Vioxx] Allergy (Verified 07/02/17 14:41) Sulfa (Sulfonamide Antibiotics) Allergy (Verified 07/02/17 14:41) Past Medical History - Past Medical History Cardiac Medical History: Reports: Hx Hypertension Denies: Hx Coronary Artery Disease, Hx Heart Attack Pulmonary Medical History: Reports: Hx Bronchitis Denies: Hx Asthma, Hx COPD, Hx Pneumonia Neurological Medical History: Denies: Hx Cerebrovascular Accident, Hx Seizures Renal/ Medical History: Denies: Hx Peritoneal Dialysis GI Medical History: Denies: Hx Hepatitis, Hx Hiatal Hernia, Hx Ulcer Musculoskeltal Medical History: Denies Hx Arthritis Psychiatric Medical History: Reports: Hx Dementia Infectious Medical History: Denies: Hx Hepatitis Past Surgical History: Reports: Hx Hysterectomy, Hx Mastectomy - right- cancer, Hx Orthopedic Surgery, Hx Tonsillectomy. Denies: Hx Open Heart Surgery, Hx Pacemaker - Immunizations Hx Diphtheria, Pertussis, Tetanus Vaccination: Yes Physical Exam - Vital signs Vitals: Temp Pulse Resp BP Pulse Ox 97.8 F 86 14 123/76 99 07/10/17 11:50 07/10/17 11:50 07/10/17 11:50 07/10/17 11:50 07/10/17 11:50 Course - Vital Signs Vital signs: Temp Pulse Resp BP Pulse Ox 97.8 F 86 14 123/76 99 07/10/17 11:50 07/10/17 11:50 07/10/17 11:50 07/10/17 11:50 07/10/17 11:50 Doctor's Discharge - Discharge Referrals: LOCALMD,NO [Primary Care Provider] - Follow up as needed
--- NOTE | 2017-07-10 12:40 | ER Document Report ---
ED Dizziness/Weakness - General Chief Complaint: Weakness Stated Complaint: WEAKNESS Time Seen by Provider: 07/10/17 12:07 Mode of Arrival: Ambulatory Information source: Patient Notes: 81 yo female brought to ER by who states that she has chronic memory loss, she c/o weakness, falling down and that she needed to go to the ER. He did not want to bring her but she gets adamant and angry with him. She is wandering around the room trying to take her clothes off and they are yelling at each other. She states, "don't know what I am doing or why I am here, I want to go home". She does have hx of dementia, he nods yes, she says no. There is obvious discoarse this am and he wants to do what she wants at this time and leave. He states this is normal behavior for her. She denies any symptoms now. He does states that she is not eating much today. TRAVEL OUTSIDE OF THE [place] IN LAST 30 DAYS: No - Related Data Allergies/Adverse Reactions: Penicillins Allergy (Verified 07/10/17 12:12) rofecoxib [From Vioxx] Allergy (Verified 07/10/17 12:12) Sulfa (Sulfonamide Antibiotics) Allergy (Verified 07/10/17 12:12) Past Medical History - General Information source: Patient, Relative - Social History Smoking Status: Current Every Day Smoker Frequency of alcohol use: None Drug Abuse: None Lives with: Spouse/Significant other Family History: Reviewed & Not Pertinent Patient has suicidal ideation: No Patient has homicidal ideation: No - Past Medical History Cardiac Medical History: Reports: Hx Hypertension Pulmonary Medical History: Reports: Hx Bronchitis Neurological Medical History: Reports: Other - dementia Psychiatric Medical History: Reports: Hx Dementia Infectious Medical History: Denies: Hx Hepatitis Past Surgical History: Reports: Hx Hysterectomy, Hx Mastectomy - right- cancer, Hx Orthopedic Surgery, Hx Tonsillectomy. Denies: Hx Open Heart Surgery, Hx Pacemaker - Immunizations Hx Diphtheria, Pertussis, Tetanus Vaccination: Yes Review of Systems - Review of Systems Constitutional: No symptoms reported EENT: No symptoms reported Cardiovascular: No symptoms reported Respiratory: No symptoms reported Gastrointestinal: No symptoms reported Genitourinary: No symptoms reported Female Genitourinary: No symptoms reported Musculoskeletal: No symptoms reported Skin: No symptoms reported Hematologic/Lymphatic: No symptoms reported Neurological/Psychological: No symptoms reported Physical Exam - Vital signs Vitals: Temp Pulse Resp BP Pulse Ox 97.8 F 86 14 123/76 99 07/10/17 11:50 07/10/17 11:50 07/10/17 11:50 07/10/17 11:50 07/10/17 11:50 Interpretation: Normal - General General appearance: Appears well, Alert, Anxious In distress: None Notes: pacing in room trying to get her clothes on with IV in place. - HEENT Head: Normocephalic, Atraumatic Eyes: Normal Conjunctiva: Normal Pupils: PERRL Mucous membranes: Normal Neck: Supple. No: Lymphadenopathy - Respiratory Respiratory status: No respiratory distress Chest status: Nontender Breath sounds: Normal Chest palpation: Normal - Cardiovascular Rhythm: Regular Heart sounds: Normal auscultation Murmur: No - Abdominal Inspection: Normal Distension: No distension Bowel sounds: Normal Tenderness: Nontender Organomegaly: No organomegaly - Back Back: Normal, Nontender - Extremities General upper extremity: Normal inspection, Nontender, Normal color, Normal ROM , Normal temperature General lower extremity: Normal inspection, Nontender, Normal color, Normal ROM , Normal temperature, Normal weight bearing. No: Jeffy's sign - Neurological Neuro grossly intact: Yes Cognition: Normal Orientation: AAOx4 Candor Coma Scale Eye Opening: Spontaneous Candor Coma Scale Verbal: Oriented Josh Coma Scale Motor: Obeys Commands Josh Coma Scale Total: 15 Speech: Normal Motor strength normal: LUE, RUE, LLE, RLE Sensory: Normal - Psychological Associated symptoms: Normal affect, Normal mood - Skin Skin Temperature: Warm Skin Moisture: Dry Skin Color: Normal Skin irregularity: negative: Rash Course - Re-evaluation Re-evalutation: 07/10/17 13:[address] Simon who states that the patient can be discharged without the EKG. - Vital Signs Vital signs: Temp Pulse Resp BP Pulse Ox 97.8 F 86 14 123/76 99 07/10/17 11:50 07/10/17 11:50 07/10/17 11:50 07/10/17 11:50 07/10/17 11:50 - Laboratory Result Diagrams: 07/10/17 12:44 07/10/17 12:44 Laboratory results interpreted by me: 07/10/17 07/10/17 12:44 12:44 Seg Neutrophils % 79.7 H Chloride 113 H Carbon Dioxide 21 L BUN 23 H Glucose 72 L Total Bilirubin 0.1 L AST 55 H ALT 53 H Alkaline Phosphatase 143 H Total Protein 5.9 L Discharge - Discharge Clinical Impression: Resolved weakness, Mild dehydration Dementia Qualifiers: Dementia type: unspecified type Dementia behavioral disturbance: without behavioral disturbance Qualified Code(s): F03.90 - Unspecified dementia without behavioral disturbance Condition: Good Disposition: HOME, SELF-CARE Instructions: Weakness ([facility]) Additional Instructions: See Dr. Reese tomorrow Return to the emergency room any concerns Eat Drink plenty of fluids Referrals: BJ REESE MD [ACTIVE STAFF] - Follow up as needed
[2017-07-10 13:05] LABS: ABSOLUTE BASOPHILS # (AUTO) 0.1 10^3/uL (0.0-0.2); ABSOLUTE LYMPHOCYTES (AUTO) 1.4 10^3/uL (0.5-4.7); ABSOLUTE MONOCYTES (AUTO) 0.6 10^3/uL (0.1-1.4); ABSOLUTE NEUT (AUTO) 7.9 10^3/uL (1.7-8.2); BASOPHILS % (AUTO) 0.7 % (0-2); EOSINOPHILS % (AUTO) 0.4 % (0-6); HEMATOCRIT 40.2 % (36.0-47.0); HEMOGLOBIN 13.5 g/dL (12.0-15.5); LYMPHOCYTES % (AUTO) 13.6 % (13-45); MEAN CORPUSCULAR HEMOGLOBIN 31.4 pg (27.0-33.4); MEAN CORPUSCULAR HGB CONC 33.5 g/dL (32.0-36.0); MEAN CORPUSCULAR VOLUME 94 fl (80-97); MONOCYTES % (AUTO) 5.6 % (3-13); PLATELET COUNT 267 10^3/uL (150-450); RED BLOOD COUNT 4.29 10^6/uL (3.72-5.28); RED CELL DISTRIBUTION WIDTH 13.9 % (11.5-14.0); SEGMENTED NEUTROPHILS % (AUTO) 79.7 % (42-78); TOTAL CELLS COUNTED % (AUTO) 100 %; WHITE BLOOD COUNT 9.9 10^3/uL (4.0-10.5)
[2017-07-10 13:23] LABS: ALANINE AMINOTRANSFERASE 53 U/L (9-52); ALBUMIN 3.5 g/dL (3.5-5.0); ALKALINE PHOSPHATASE 143 U/L (38-126); ANION GAP 11 (5-19); ASPARTATE AMINO TRANSFERASE 55 U/L (14-36); BILIRUBIN,DIRECT 0.1 mg/dL (0.0-0.4); BILIRUBIN,TOTAL 0.1 mg/dL (0.2-1.3); BLOOD UREA NITROGEN 23 mg/dL (7-20); CALCIUM 9.1 mg/dL (8.4-10.2); CARBON DIOXIDE 21 mmol/L (22-30); CHLORIDE 113 mmol/L (98-107); CREATINE KINASE 33 U/L (30-135); GLUCOSE 72 mg/dL (75-110); POTASSIUM 4.5 mmol/L (3.6-5.0); SODIUM 144.7 mmol/L (137-145); TOTAL PROTEIN 5.9 g/dL (6.3-8.2)
[2017-07-10 13:35] LABS: CREATINE KINASE MB 1.02 ng/mL (<4.55); TROPONIN I 0.015 ng/mL
== END 2017-07-10 13:51 | disposition home or self-care (01) ==
LOC: ER 11:42
DX: R53.1 Weakness (principal); E86.0 Dehydration; F03.90 Unspecified dementia, unspecified severity, without behavioral disturbance, psychotic disturbance, mood disturbance, and anxiety; R41.3 Other amnesia; I10 Essential (primary) hypertension; Z88.0 Allergy status to penicillin; Z88.2 Allergy status to sulfonamides; Z90.710 Acquired absence of both cervix and uterus; Z90.11 Acquired absence of right breast and nipple
CPT/HCPCS: 99285; 96360; 36415; 82553; 82550; 85025; 80053; 84484; J7030

== ENCOUNTER 2017-07-21 19:17 | Emergency (ER) | payer MEDICARE ==
[2017-07-21 19:25] VITALS: BP 145/85
--- NOTE | 2017-07-21 20:01 | ER Document Report ---
ED ENT - General Chief Complaint: Ear Pain Stated Complaint: RIGHT EAR PAIN Time Seen by Provider: 07/21/17 19:45 Mode of Arrival: Ambulatory Information source: Patient Notes: 81-year-old female presents to ED for complaint of right ear pain she states for several days. She has been here multiple times for a long time for the same ear pain. According to her significant other she has been to her primary care doctor/her chronic pain management doctor/and ENT all within the last month of the same pain. Significant other states that she has had an MRI and they stated there was some problems in her neck and she got it shot in her neck last week pain management with no relief. States she then saw another doctor pain management earlier this week and they gave her a salve and told to use heat and ice to the neck. She states that she still has the same pain in her ear that goes from the ear all the way down to her chest. Patient states she is not taking any strong pain medicine and her significant other states she has taken Percocet every 6 hours. TRAVEL OUTSIDE OF THE [place] IN LAST 30 DAYS: No - HPI Patient complains to provider of: Ear problem Onset: Other - Chronic Onset/Duration: Persistent Quality of pain: Sharp Severity: Moderate Pain Level: 3 Context: Other - Chronic ear pain to the right ear Location of pain: Ears - Chronic pain to the right ear Associated symptoms: Ear pain Similar symptoms previously: Yes Recently seen / treated by doctor: Yes - Related Data Allergies/Adverse Reactions: Penicillins Allergy (Verified 07/10/17 12:12) rofecoxib [From Vioxx] Allergy (Verified 07/10/17 12:12) Sulfa (Sulfonamide Antibiotics) Allergy (Verified 07/10/17 12:12) Past Medical History - General Information source: Patient - And significant other - Social History Smoking Status: Current Every Day Smoker Cigarette use (# per day): Yes - Three fourths pack per day Chew tobacco use (# tins/day): No Smoking Education Provided: Yes - 4 minutes Frequency of alcohol use: Social Drug Abuse: None Lives with: Spouse/Significant other Family History: Reviewed & Not Pertinent Patient has suicidal ideation: No Patient has homicidal ideation: No - Past Medical History Cardiac Medical History: Reports: Hx Hypertension Pulmonary Medical History: Reports: Hx Bronchitis EENT Medical History: Reports: None Neurological Medical History: Reports: None Endocrine Medical History: Reports: None Renal/ Medical History: Reports: None Malignancy Medical History: Reports: Hx Breast Cancer GI Medical History: Reports: None Musculoskeltal Medical History: Reports Hx Arthritis, Reports Hx Musculoskeletal Deformity, Reports Hx Musculoskeletal Trauma Skin Medical History: Reports None Psychiatric Medical History: Reports: Hx Dementia Traumatic Medical History: Reports: None Infectious Medical History: Reports: None Past Surgical History: Reports: Hx Hysterectomy, Hx Mastectomy - right- cancer, Hx Orthopedic Surgery, Hx Tonsillectomy - Immunizations Hx Diphtheria, Pertussis, Tetanus Vaccination: Yes Review of Systems - Review of Systems Constitutional: No symptoms reported EENT: Ear pain Cardiovascular: No symptoms reported Respiratory: No symptoms reported Gastrointestinal: No symptoms reported Genitourinary: No symptoms reported Female Genitourinary: No symptoms reported Musculoskeletal: No symptoms reported Skin: No symptoms reported Hematologic/Lymphatic: No symptoms reported Neurological/Psychological: No symptoms reported -: Yes All other systems reviewed and negative Physical Exam - Vital signs Vitals: Temp Pulse Resp BP Pulse Ox 98.6 F 68 16 145/85 H 99 07/21/17 19:23 07/21/17 19:23 07/21/17 19:23 07/21/17 19:23 07/21/17 19:23 Interpretation: Normal - General General appearance: Appears well, Alert - HEENT Head: Normocephalic, Atraumatic Eyes: Normal Pupils: PERRL Ears: Normal External canal: Normal Tympanic membrane: Normal Sinus: Normal Nasal: Normal Mouth/Lips: Normal Mucous membranes: Normal Pharynx: Normal Neck: Normal - Respiratory Respiratory status: No respiratory distress Chest status: Nontender Breath sounds: Normal Chest palpation: Normal - Cardiovascular Rhythm: Regular Heart sounds: Normal auscultation Murmur: No - Abdominal Inspection: Normal Distension: No distension Bowel sounds: Normal Tenderness: Nontender Organomegaly: No organomegaly - Back Back: Normal, Nontender - Extremities General upper extremity: Normal inspection, Nontender, Normal color, Normal ROM , Normal temperature General lower extremity: Normal inspection, Nontender, Normal color, Normal ROM , Normal temperature, Normal weight bearing. No: Jeffy's sign - Neurological Neuro grossly intact: Yes Cognition: Normal Orientation: AAOx4 Josh Coma Scale Eye Opening: Spontaneous [place] Coma Scale Verbal: Oriented Josh Coma Scale Motor: Obeys Commands Josh Coma Scale Total: 15 Speech: Normal Motor strength normal: LUE, RUE, LLE, RLE Sensory: Normal - Psychological Associated symptoms: Normal affect, Normal mood - Skin Skin Temperature: Warm Skin Moisture: Dry Skin Color: Normal Course - Re-evaluation Re-evalutation: 07/21/17 20:07 Patient has been to this emergency room multiple times for the same ear pain. She has been to pain management, and ENT, and her primary care doctor multiple times for the same ear pain. She is on Percocet for this ear pain. She has had a spinal injection to her neck this past week for the same ear pain. Her exam of her ear is negative. She discharged home to follow-up with her primary care doctor. - Vital Signs Vital signs: Temp Pulse Resp BP Pulse Ox 98.6 F 68 16 145/85 H 99 07/21/17 19:23 07/21/17 19:23 07/21/17 19:23 07/21/17 19:23 07/21/17 19:23 Discharge - Discharge Clinical Impression: Otalgia, right ear Condition: Stable Disposition: HOME, SELF-CARE Additional Instructions: You were seen today for pain in your right ear. There is no signs or symptoms of an infection to your inner or outer ear. You will need to follow-up with your primary care doctor, your ears nose and throat doctor, and your chronic pain management doctor for this pain. Please take your pain medications as prescribed. FOLLOW-UP CARE: If you have been referred to a physician for follow-up care, call the physician s office for an appointment as you were instructed or within the next two days. If you experience worsening or a significant change in your symptoms, notify the physician immediately or return to the Emergency Department at any time for re-evaluation. Forms: Elevated Blood Pressure, Smoking Cessation Education Referrals: BJ REESE MD [ACTIVE STAFF] - Follow up as needed
== END 2017-07-21 20:08 | disposition home or self-care (01) ==
LOC: ER 19:17
DX: H92.01 Otalgia, right ear (principal); F17.210 Nicotine dependence, cigarettes, uncomplicated; I10 Essential (primary) hypertension; Z85.3 Personal history of malignant neoplasm of breast; Z90.710 Acquired absence of both cervix and uterus; Z88.0 Allergy status to penicillin
CPT/HCPCS: 99282; 99406

== ENCOUNTER 2017-07-26 19:04 | Emergency (ER) | payer MEDICARE ==
[2017-07-26 19:32] VITALS: BP 138/71
== END 2017-07-26 20:40 | disposition left against medical advice (07) ==
LOC: ER 19:04
DX: Z53.21 Procedure and treatment not carried out due to patient leaving prior to being seen by health care provider (principal)

== ENCOUNTER → 2017-07-26 | Outpatient (CLI) | payer MEDICARE ==
[2017-07-26 10:54] LABS: ABSOLUTE BASOPHILS # (AUTO) 0.1 10^3/uL (0.0-0.2); ABSOLUTE EOSINOPHILS # (AUTO) 0.1 10^3/uL (0.0-0.6); ABSOLUTE LYMPHOCYTES (AUTO) 1.6 10^3/uL (0.5-4.7); ABSOLUTE MONOCYTES (AUTO) 0.5 10^3/uL (0.1-1.4); ABSOLUTE NEUT (AUTO) 5.3 10^3/uL (1.7-8.2); BASOPHILS % (AUTO) 0.7 % (0-2); HEMATOCRIT 37.2 % (36.0-47.0); HEMOGLOBIN 12.3 g/dL (12.0-15.5); LYMPHOCYTES % (AUTO) 20.4 % (13-45); MEAN CORPUSCULAR HEMOGLOBIN 31.1 pg (27.0-33.4); MEAN CORPUSCULAR HGB CONC 33.1 g/dL (32.0-36.0); MEAN CORPUSCULAR VOLUME 94 fl (80-97); MONOCYTES % (AUTO) 6.8 % (3-13); PLATELET COUNT 264 10^3/uL (150-450); RED BLOOD COUNT 3.96 10^6/uL (3.72-5.28); RED CELL DISTRIBUTION WIDTH 14.5 % (11.5-14.0); SEGMENTED NEUTROPHILS % (AUTO) 70.1 % (42-78); TOTAL CELLS COUNTED % (AUTO) 100 %; WHITE BLOOD COUNT 7.6 10^3/uL (4.0-10.5)
[2017-07-26 11:26] LABS: ALANINE AMINOTRANSFERASE 39 U/L (9-52); ALBUMIN 3.8 g/dL (3.5-5.0); ALKALINE PHOSPHATASE 136 U/L (38-126); ANION GAP 9 (5-19); ASPARTATE AMINO TRANSFERASE 20 U/L (14-36); BILIRUBIN,DIRECT 0.3 mg/dL (0.0-0.4); BILIRUBIN,TOTAL 0.3 mg/dL (0.2-1.3); BLOOD UREA NITROGEN 20 mg/dL (7-20); CALCIUM 8.9 mg/dL (8.4-10.2); CARBON DIOXIDE 23 mmol/L (22-30); CHLORIDE 116 mmol/L (98-107); GLUCOSE 96 mg/dL (75-110); POTASSIUM 4.3 mmol/L (3.6-5.0); SODIUM 148.1 mmol/L (137-145); TOTAL PROTEIN 6.2 g/dL (6.3-8.2)
== END ==
LOC: OD 10:16
PROVIDERS: ATTEND Obstetrics & Gynecology
DX: R41.81 Age-related cognitive decline (principal); R29.3 Abnormal posture
CPT/HCPCS: 36415; 80053; 85025

== ENCOUNTER 2017-08-08 16:43 | Inpatient (IN) | payer MEDICARE ==
--- NOTE | 2017-08-08 17:55 | ER Document Report ---
ED Medical Screen (RME) - General Chief Complaint: General Weakness Stated Complaint: BODY WEAKNESS Time Seen by Provider: 08/08/17 17:49 Mode of Arrival: Ambulatory Information source: Patient, Parent Notes: 81-year-old female history of dementia was chronic right ear pain presents with with concerns of weakness and possible gait abnormality I have greeted and performed a rapid initial assessment of this patient. A comprehensive ED assessment and evaluation of the patient, analysis of test results and completion of the medical decision making process will be conducted by additional ED providers. PHYSICAL EXAMINATION: GENERAL: Well-appearing, well-nourished and in no acute distress. HEAD: Atraumatic, normocephalic. EYES: Pupils equal round extraocular movements intact, conjunctiva are normal. ENT: Nares patent NECK: Normal range of motion LUNGS: No respiratory distress Musculoskeletal: Normal range of motion NEUROLOGICAL: Normal speech, normal gait. PSYCH: Normal mood, normal affect. SKIN: Warm, Dry, normal turgor, no rashes or lesions noted. TRAVEL OUTSIDE OF THE [place] IN LAST 30 DAYS: No - Related Data Allergies/Adverse Reactions: Penicillins Allergy (Verified 07/10/17 12:12) rofecoxib [From Vioxx] Allergy (Verified 07/10/17 12:12) Sulfa (Sulfonamide Antibiotics) Allergy (Verified 07/10/17 12:12) Past Medical History - Social History Chew tobacco use (# tins/day): No Frequency of alcohol use: None Drug Abuse: None - Past Medical History Cardiac Medical History: Reports: Hx Hypertension Denies: Hx Coronary Artery Disease, Hx Heart Attack Pulmonary Medical History: Reports: Hx Bronchitis Denies: Hx Asthma, Hx COPD, Hx Pneumonia Neurological Medical History: Denies: Hx Cerebrovascular Accident, Hx Seizures Renal/ Medical History: Denies: Hx Peritoneal Dialysis Malignancy Medical History: Reports: Hx Breast Cancer GI Medical History: Denies: Hx Hepatitis, Hx Hiatal Hernia, Hx Ulcer Musculoskeltal Medical History: Reports Hx Arthritis, Reports Hx Musculoskeletal Deformity, Reports Hx Musculoskeletal Trauma Psychiatric Medical History: Reports: Hx Dementia Infectious Medical History: Denies: Hx Hepatitis Past Surgical History: Reports: Hx Hysterectomy, Hx Mastectomy - right- cancer, Hx Orthopedic Surgery, Hx Tonsillectomy. Denies: Hx Open Heart Surgery, Hx Pacemaker - Immunizations Hx Diphtheria, Pertussis, Tetanus Vaccination: Yes Physical Exam - Vital signs Vitals: Temp Pulse Resp BP Pulse Ox 98.0 F 79 16 136/87 H 99 08/08/17 16:56 08/08/17 16:56 08/08/17 16:56 08/08/17 16:56 08/08/17 16:56 Course - Vital Signs Vital signs: Temp Pulse Resp BP Pulse Ox 98.0 F 79 16 136/87 H 99 08/08/17 16:56 08/08/17 16:56 08/08/17 16:56 08/08/17 16:56 08/08/17 16:56 Doctor's Discharge - Discharge Referrals: BJ REESE MD [Primary Care Provider] - Follow up as needed
--- NOTE | 2017-08-08 18:34 | RADIOLOGY REPORT (SQ) ---
EXAM DESCRIPTION: CT HEAD WITHOUT COMPLETED DATE/TIME: 08/08/2017 6:25 pm REASON FOR STUDY: weakness COMPARISON: MR 06/11/2017 TECHNIQUE: Axial images acquired through the brain without intravenous contrast. Images reviewed wi th bone, brain and subdural windows. Additional sagittal and coronal reconstructions were generated. Images stored on PACS. All CT scanners at this facility use dose modulation, iterative reconstruction, and/or weight based d osing when appropriate to reduce radiation dose to as low as reasonably achievable (ALARA). [facility]: Dose Right [facility]: CareDose [facility]: Dose Right [facility]: Teradose 4D [facility]: [employer] RADIATION DOSE: CT Rad equipment meets quality standard of care and radiation dose reduction techniq ues were employed. CTDIvol: 53.2 mGy. DLP: 937 mGy-cm. mGy. LIMITATIONS: None. FINDINGS: VENTRICLES: Normal size and contour. CEREBRUM: No masses. No hemorrhage. No midline shift. No evidence for acute infarction. Areas of l ow density in the white matter most likely chronic small vessel ischemic changes. CEREBELLUM: No masses. No hemorrhage. No alteration of density. No evidence for acute infarction. EXTRAAXIAL SPACES: No fluid collections. No masses. ORBITS AND GLOBE: No intra- or extraconal masses. Normal contour of globe without masses. CALVARIUM: No fracture. PARANASAL SINUSES: No fluid or mucosal thickening. SOFT TISSUES: No mass or hematoma. OTHER: No other significant finding. IMPRESSION: CHRONIC MICROVASCULAR ISCHEMIA. NO ACUTE IMAGING FINDINGS IN THE BRAIN. EVIDENCE OF ACUTE STROKE: NO. COMMENT: Quality ID # [id number]: Final reports with documentation of one or more dose reduction techniques (e.g., Automated exposure control, adjustment of the mA and/or kV according to patient size, use of iterative reconstruction technique) TECHNICAL DOCUMENTATION: JOB ID: [id number] [employer]- All Rights Reserved Reading location - IP/workstation name: [email or web address]
--- NOTE | 2017-08-08 18:42 | ER Document Report ---
ED General - General Mode of Arrival: Ambulatory TRAVEL OUTSIDE OF THE [place] IN LAST 30 DAYS: No <AMANDA GRACIA - Last Filed: 08/08/17 23:13> <DEISY RYAN - Last Filed: 08/10/17 19:15> - General Chief Complaint: General Weakness Stated Complaint: BODY WEAKNESS Time Seen by Provider: 08/08/17 17:49 Notes: 81-year-old female presenting to the emergency department today with complaints of "feeling groggy" with generalized weakness and dizziness. Patient states that she had some friends over today and they "did not think she was acting right". Significant other at bedside states that the patient seemed to have some problems with mobility but does not elaborate. Patient denies any numbness or tingling. (AMANDA GRACIA) - Related Data Allergies/Adverse Reactions: Penicillins Allergy (Verified 07/10/17 12:12) rofecoxib [From Vioxx] Allergy (Verified 07/10/17 12:12) Sulfa (Sulfonamide Antibiotics) Allergy (Verified 07/10/17 12:12) Past Medical History - General Information source: Patient, Parent - Social History Smoking Status: Former Smoker Cigarette use (# per day): No Chew tobacco use (# tins/day): No Frequency of alcohol use: None Drug Abuse: None Lives with: Family Family History: Reviewed & Not Pertinent Patient has suicidal ideation: No Patient has homicidal ideation: No - Past Medical History Cardiac Medical History: Reports: Hx Hypertension Pulmonary Medical History: Reports: Hx Bronchitis Malignancy Medical History: Reports: Hx Breast Cancer Musculoskeltal Medical History: Reports Hx Arthritis, Reports Hx Musculoskeletal Deformity, Reports Hx Musculoskeletal Trauma Psychiatric Medical History: Reports: Hx Dementia Past Surgical History: Reports: Hx Hysterectomy, Hx Mastectomy - right- cancer, Hx Orthopedic Surgery, Hx Tonsillectomy - Immunizations Hx Diphtheria, Pertussis, Tetanus Vaccination: Yes <AMANDA GRACIA - Last Filed: 08/08/17 23:13> Review of Systems - Review of Systems Constitutional: See HPI, Weakness, Other - feeling groggy EENT: No symptoms reported Cardiovascular: See HPI, Dizziness Respiratory: No symptoms reported Gastrointestinal: No symptoms reported Genitourinary: No symptoms reported Female Genitourinary: No symptoms reported Musculoskeletal: No symptoms reported Skin: No symptoms reported Hematologic/Lymphatic: No symptoms reported Neurological/Psychological: denies: Numbness, Tingling -: Yes All other systems reviewed and negative <LORE GRACIAON - Last Filed: 08/08/17 23:13> Physical Exam <SAMIALOREAMANDA - Last Filed: 08/08/17 23:13> <SHELBYDEISY Barber - Last Filed: 08/10/17 19:15> - Vital signs Vitals: Temp Pulse Resp BP Pulse Ox 98.0 F 79 16 136/87 H 99 08/08/17 16:56 08/08/17 16:56 08/08/17 16:56 08/08/17 16:56 08/08/17 16:56 - Notes Notes: Physical Exam: General: Alert, combative at times. HEENT: Normocephalic. Atraumatic. PERRL. Extraocular movements intact. Oropharynx clear. Neck: Supple. Non-tender. Respiratory: No respiratory distress. Clear and equal breath sounds bilaterally. Cardiovascular: Regular rate and rhythm. Abdominal: Normal Inspection. Non-tender. No distension. Normal Bowel Sounds. Back: Non-tender. No deformity or step off. Extremities: Moves all four extremities. Upper extremities: Normal inspection. Normal ROM. Lower extremities: Normal inspection. No edema. Normal ROM. Neurological: Grossly intact. Intermittently verbally combative. Psychological: Unable to assess Skin: Warm. Dry. Normal color. (AMANDA GRACIA) Course - Laboratory Result Diagrams: 08/08/17 19:00 08/08/17 19:00 <AMANDA GRACIA - Last Filed: 08/08/17 23:13> - Laboratory Result Diagrams: 08/10/17 04:57 08/10/17 04:57 - Diagnostic Test Radiology reviewed: Image reviewed - EKG Interpretation by Me EKG shows normal: Sinus rhythm Rate: Normal Rhythm: NSR [place]/QRS: RBBB <SHELBYDEISY - Last Filed: 08/10/17 19:15> - Re-evaluation Re-evalutation: 08/08/17 20:[address] No acute findings on CT of head. Patient hepato-in the emergency department. She is waxing and waning in her mental status. She is saying things do not make sense like stating if we want her to give us a credit card. I feel patient does not have capacity to make informed decision even though she is requesting we have at this time. Her significant other bedside states that this is not her normal mental status. Will proceed to provide IV Ativan as her IV still in place and then proceed with Mati if this does not help with her agitation. 08/08/17 22:23 Patient settled down after administration of Ativan. MRI of brain in progress. Patient remains hemodynamically stable resting comfortably. Repeat salicylate is showing a downward trend. Will be admitted for further observation and workup (DEISY RYAN) - Vital Signs Vital signs: Temp Pulse Resp BP Pulse Ox 98.0 F 81 20 155/94 H 98 08/10/17 15:09 08/10/17 15:09 08/10/17 15:09 08/10/17 15:09 08/10/17 15:09 - Laboratory Laboratory results interpreted by me: 08/08/17 08/08/17 08/08/17 19:00 19:00 19:00 Hgb 11.9 L Hct 35.8 L RDW 15.0 H Sodium 145.8 H Chloride 112 H Glucose 117 H Alkaline Phosphatase 131 H Ammonia Total Protein 6.1 L Urine Blood Urine Nitrite Ur Leukocyte Esterase Salicylates 21.4 H* Acetaminophen < 10 L 08/08/17 08/08/17 21:15 21:24 Hgb Hct RDW Sodium Chloride Glucose Alkaline Phosphatase Ammonia < 8.7 L Total Protein Urine Blood SMALL H Urine Nitrite POSITIVE H Ur Leukocyte Esterase SMALL H Salicylates Acetaminophen Discharge <AMANDA GRACIA - Last Filed: 08/08/17 23:13> - Discharge Admitting Provider: [facility] Unit Admitted: Telemetry <DEISY RYAN - Last Filed: 08/10/17 19:15> - Discharge Clinical Impression: Ataxia, Acute encephalopathy Disposition: ADMITTED OBSERVATION Scribe Attestation: 08/10/17 19:15 I personally performed the services described documentation, reviewed and edited the documentation which was dictated to describe my presence, and it accurately records my words and actions. (DEISY RYAN) Scribe Documentation - Scribe Written by Scribe:: Sin Swain, 08/08/2017 [id number] acting as scribe for :: Shelby <AMANDA GRACIA - Last Filed: 08/08/17 23:13>
[2017-08-08 19:17] LABS: ABSOLUTE BASOPHILS # (AUTO) 0.1 10^3/uL (0.0-0.2); ABSOLUTE EOSINOPHILS # (AUTO) 0.2 10^3/uL (0.0-0.6); ABSOLUTE LYMPHOCYTES (AUTO) 1.6 10^3/uL (0.5-4.7); ABSOLUTE MONOCYTES (AUTO) 0.5 10^3/uL (0.1-1.4); ABSOLUTE NEUT (AUTO) 4.8 10^3/uL (1.7-8.2); EOSINOPHILS % (AUTO) 2.3 % (0-6); HEMATOCRIT 35.8 % (36.0-47.0); HEMOGLOBIN 11.9 g/dL (12.0-15.5); LYMPHOCYTES % (AUTO) 22.5 % (13-45); MEAN CORPUSCULAR HGB CONC 33.4 g/dL (32.0-36.0); MEAN CORPUSCULAR VOLUME 93 fl (80-97); MONOCYTES % (AUTO) 7.1 % (3-13); PLATELET COUNT 235 10^3/uL (150-450); RED BLOOD COUNT 3.86 10^6/uL (3.72-5.28); SEGMENTED NEUTROPHILS % (AUTO) 67.1 % (42-78); TOTAL CELLS COUNTED % (AUTO) 100 %; WHITE BLOOD COUNT 7.1 10^3/uL (4.0-10.5)
[2017-08-08 19:40] LABS: ALANINE AMINOTRANSFERASE 35 U/L (9-52); ALBUMIN 3.6 g/dL (3.5-5.0); ALKALINE PHOSPHATASE 131 U/L (38-126); ANION GAP 11 (5-19); ASPARTATE AMINO TRANSFERASE 33 U/L (14-36); BILIRUBIN,DIRECT 0.2 mg/dL (0.0-0.4); BILIRUBIN,TOTAL 0.2 mg/dL (0.2-1.3); BLOOD UREA NITROGEN 20 mg/dL (7-20); CARBON DIOXIDE 23 mmol/L (22-30); CHLORIDE 112 mmol/L (98-107); GLUCOSE 117 mg/dL (75-110); POTASSIUM 3.6 mmol/L (3.6-5.0); SODIUM 145.8 mmol/L (137-145); TOTAL PROTEIN 6.1 g/dL (6.3-8.2)
[2017-08-08 19:57] LABS: ACETAMINOPHEN < 10 ug/mL (10-30)
[2017-08-08 19:58] LABS: SALICYLATE 21.4 mg/dL (2.0-20.0)
[2017-08-08] MEDS ORDERED: LORAZEPAM INJ 2 MG/1 ML VIAL IV ONE (20:07)
[2017-08-08] MEDS ORDERED: ZIPRASIDONE MESYLATE INJ/PF 20 MG SDV IM ONE (20:08)
[2017-08-08 21:46] LABS: APPEARANCE,URINE CLEAR; BILIRUBIN,URINE NEGATIVE (NEGATIVE); COLOR,URINE YELLOW; GLUCOSE, URINE NEGATIVE (NEGATIVE); KETONES,URINE NEGATIVE (NEGATIVE); LEUKOCYTE ESTERASE,URINE SMALL (NEGATIVE); NITRITE,URINE POSITIVE (NEGATIVE); PROTEIN,URINE NEGATIVE (NEGATIVE); URINE SPECIFIC GRAVITY 1.012; UROBILINOGEN,URINE NEGATIVE mg/dL (<2.0)
[2017-08-08 21:59] LABS: URINE AMPHETAMINES SCREEN NEGATIVE; URINE BARBITURATES SCREEN NEGATIVE; URINE BENZODIAZEPINES SCREEN NEGATIVE; URINE COCAINE SCREEN NEGATIVE; URINE MARIJUANA (THC) SCREEN NEGATIVE; URINE METHADONE SCREEN NEGATIVE; URINE PHENCYCLIDINE SCREEN NEGATIVE
[2017-08-08] MEDS ORDERED: MAG HYDROX/AL HYDROX/SIMETH SUSP 30 ML UDCUP PO PRN (22:20)
[2017-08-08] MEDS ORDERED: ACETAMINOPHEN 325 MG TABLET PO PRN (22:20)
[2017-08-08] MEDS ORDERED: IPRATROPIUM/ALBUTEROL 0.5-2.5 MG/3 ML AMPUL NEB PRN (22:20)
[2017-08-08] MEDS ORDERED: POTASSI CL 20 MEQ/D5-1/2NS 1L 1,000 ML IV SCH (22:30)
[2017-08-09 05:42] LABS: ABSOLUTE EOSINOPHILS # (AUTO) 0.1 10^3/uL (0.0-0.6); ABSOLUTE LYMPHOCYTES (AUTO) 0.7 10^3/uL (0.5-4.7); ABSOLUTE MONOCYTES (AUTO) 0.7 10^3/uL (0.1-1.4); ABSOLUTE NEUT (AUTO) 8.5 10^3/uL (1.7-8.2); BASOPHILS % (AUTO) 0.3 % (0-2); EOSINOPHILS % (AUTO) 1.3 % (0-6); HEMOGLOBIN 12.7 g/dL (12.0-15.5); LYMPHOCYTES % (AUTO) 7.1 % (13-45); MEAN CORPUSCULAR HEMOGLOBIN 31.2 pg (27.0-33.4); MEAN CORPUSCULAR HGB CONC 33.4 g/dL (32.0-36.0); MEAN CORPUSCULAR VOLUME 94 fl (80-97); MONOCYTES % (AUTO) 6.9 % (3-13); PLATELET COUNT 212 10^3/uL (150-450); RED BLOOD COUNT 4.06 10^6/uL (3.72-5.28); RED CELL DISTRIBUTION WIDTH 14.8 % (11.5-14.0); SEGMENTED NEUTROPHILS % (AUTO) 84.4 % (42-78); TOTAL CELLS COUNTED % (AUTO) 100 %; WHITE BLOOD COUNT 10.1 10^3/uL (4.0-10.5)
[2017-08-09 06:03] LABS: ALANINE AMINOTRANSFERASE 32 U/L (9-52); ALBUMIN 3.5 g/dL (3.5-5.0); ALKALINE PHOSPHATASE 131 U/L (38-126); ANION GAP 10 (5-19); ASPARTATE AMINO TRANSFERASE 22 U/L (14-36); BILIRUBIN,DIRECT 0.3 mg/dL (0.0-0.4); BILIRUBIN,TOTAL 0.3 mg/dL (0.2-1.3); BLOOD UREA NITROGEN 16 mg/dL (7-20); CALCIUM 8.9 mg/dL (8.4-10.2); CARBON DIOXIDE 24 mmol/L (22-30); CHLORIDE 117 mmol/L (98-107); GLUCOSE 87 mg/dL (75-110); POTASSIUM 4.2 mmol/L (3.6-5.0); SODIUM 151.3 mmol/L (137-145); TOTAL PROTEIN 5.9 g/dL (6.3-8.2)
--- NOTE | 2017-08-09 06:12 | EKG REPORT ---
SEVERITY:- ABNORMAL ECG - SINUS RHYTHM RIGHT BUNDLE BRANCH BLOCK L[facility]B : Confirmed by: Broderick Boss MD 09-Aug-2017 06:10:49
[2017-08-09] MEDS ORDERED: DEXTROSE 5%-WATER 1000 ML 1,000 ML IV ONE (06:24)
--- NOTE | 2017-08-09 06:33 | PDOC H&P ---
History of Present Illness Admission Date/PCP: 08/08/17 22:56 BJ REESE MD Patient complains of: Confusion and generalized weakness History of Present Illness: NICK ST is a 81 year old female with a past medical history of dementia and chronic pain. Presents with her long-term caregiver and partner who provides history. He states the patient developed a generalized weakness with feeling groggy. She has a history of surreptitious use of prescribed and over- the-counter medications. In the emergency room she becomes agitated and combative receiving 2 mg of Ativan and 10mg of Geodon. Vital signs are unremarkable, neck is supple without rigidity, labs are notable for salicylate toxicity of 21. She receives normal saline and referred to the hospitalist for admission. Patient is seen with her partner at bedside. She is asleep but arousable with out complaints. Alert and oriented 2. Moving all 4 extremities without rigidity, fever or diaphoresis. Medication reconciliation is ongoing, new medications or recently finished prescriptions are unclear. Past Medical History Cardiac Medical History: Reports: Hypertension Denies: Coronary Artery Disease, Myocardial Infarction Pulmonary Medical History: Reports: Bronchitis Denies: Asthma, Chronic Obstructive Pulmonary Disease (COPD), Pneumonia Neurological Medical History: Denies: Seizures Malignancy Medical History: Reports: Breast Cancer GI Medical History: Denies: Hepatitis, Hiatal Hernia Musculoskeltal Medical History: Reports: Arthritis Psychiatric Medical History: Reports: Dementia, Tobacco Dependency Denies: Depression Hematology: Denies: Anemia, Sickle Cell Disease Past Surgical History Past Surgical History: Reports: Hysterectomy, Mastectomy - right- cancer, Orthopedic Surgery, Tonsillectomy Denies: Amputation, Pacemaker Social History Information Source: Friend Lives with: Family Smoking Status: Current Every Day Smoker Cigarettes Packs Per Day: 0.5 Number of Years Smokin Last Time Smoked: 08/08/2017 Frequency of Alcohol Use: Rare Hx Recreational Drug Use: No Drugs: None - Advance Directive Resuscitation Status: Full Code Family History Family History: COPD Parental Family History Reviewed: Yes Children Family History Reviewed: Yes Sibling(s) Family History Reviewed.: Yes Medication/Allergy Home Medications: Oxycodone HCl/Acetaminophen [Oxycodone-Acetaminophen 5-325] 1 each PO Q6 Pantoprazole Sodium [Pantoprazole Sodium] 1 tab PO DAILY 07/21/17 Allergies/Adverse Reactions: Penicillins Allergy (Verified 07/10/17 12:12) rofecoxib [From Vioxx] Allergy (Verified 07/10/17 12:12) Sulfa (Sulfonamide Antibiotics) Allergy (Verified 07/10/17 12:12) Review of Systems ROS unobtainable: Due to mental status Physical Exam Vital Signs: Temp Pulse Resp BP Pulse Ox 97.6 F 66 20 144/75 H 99 08/09/17 03:52 08/09/17 04:00 08/09/17 04:00 08/09/17 04:00 08/09/17 04:00 Intake & Output 08/07/17 08/08/17 08/09/17 11:59 11:59 11:59 Weight 52.3 kg General appearance: PRESENT: no acute distress, well-developed, well-nourished Head exam: PRESENT: atraumatic, normocephalic Eye exam: PRESENT: conjunctiva pink, EOMI, PERRLA. ABSENT: scleral icterus Ear exam: PRESENT: normal external ear exam Mouth exam: PRESENT: moist, tongue midline Neck exam: ABSENT: carotid bruit, JVD, lymphadenopathy, thyromegaly Respiratory exam: PRESENT: clear to auscultation kirt. ABSENT: rales, rhonchi, wheezes Cardiovascular exam: PRESENT: RRR. ABSENT: diastolic murmur, rubs, systolic murmur Pulses: PRESENT: normal dorsalis pedis pul Vascular exam: PRESENT: normal capillary refill GI/Abdominal exam: PRESENT: normal bowel sounds, soft. ABSENT: distended, guarding, mass, organolmegaly, rebound, tenderness Rectal exam: PRESENT: deferred Extremities exam: PRESENT: full ROM. ABSENT: calf tenderness, clubbing, pedal edema Neurological exam: PRESENT: alert, awake, oriented to person, oriented to place , oriented to time, oriented to situation, CN II-XII grossly intact. ABSENT: motor sensory deficit Psychiatric exam: PRESENT: unusual affect. ABSENT: homicidal ideation, suicidal ideation Skin exam: PRESENT: dry, intact, warm. ABSENT: cyanosis, rash Results Laboratory Results: 08/09/17 05:11 08/09/17 05:11 08/09/17 08/09/17 05:11 05:11 WBC 10.1 RBC 4.06 Hgb 12.7 Hct 38.0 MCV 94 MCH 31.2 MCHC 33.4 RDW 14.8 H Plt Count 212 Seg Neutrophils % 84.4 H Lymphocytes % 7.1 L Monocytes % 6.9 Eosinophils % 1.3 Basophils % 0.3 Absolute Neutrophils 8.5 H Absolute Lymphocytes 0.7 Absolute Monocytes 0.7 Absolute Eosinophils 0.1 Absolute Basophils 0.0 Sodium 151.3 H Potassium 4.2 Chloride 117 H Carbon Dioxide 24 Anion Gap 10 BUN 16 Creatinine 0.80 Est GFR ( Amer) > 60 Est GFR (Non-Af Amer) > 60 Glucose 87 Calcium 8.9 Total Bilirubin 0.3 AST 22 ALT 32 Alkaline Phosphatase 131 H Total Protein 5.9 L Albumin 3.5 Impressions: Head CT 08/08/17 17:54 IMPRESSION: CHRONIC MICROVASCULAR ISCHEMIA. NO ACUTE IMAGING FINDINGS IN THE BRAIN. EVIDENCE OF ACUTE STROKE: NO. Assessment & Plan - Diagnosis (1) Salicylate intoxication Is this a current diagnosis for this admission?: Yes Plan: Poison control suggested supportive measures and reevaluation of salicylate level prior to initiation of bicarbonate or glucose or hemodialysis. Follow-up salicylate level and chemistry. (2) Acute encephalopathy Is this a current diagnosis for this admission?: Yes Plan: Secondary to #1 complicated by underlying dementia and history of polypharmacy. Medication reconciliation underway differential diagnosis may include benzodiazepine withdrawal. - Time Time Spent: 30 to 50 Minutes - Inpatient Certification Medical Necessity: Need Close Monitoring Due to Risk of Patient Decompensation
[2017-08-09] MEDS: HEPARIN SOD (PORCINE) 5,000 UNIT/ML 1 ML SYRINGE SUBCUT SCH ×3 (06:46→22:34)
[2017-08-09] MEDS ORDERED: CEFTRIAXONE 1 GM/D5W RTU 1 GM/50 ML RTUPB IV SCH (08:00)
[2017-08-09] MEDS: CEFTRIAXONE SODIUM 1,000 MG in DEXTROSE 5%-WATER 50 ML IV SCH (09:18)
[2017-08-09] MEDS: DOCUSATE SODIUM 100 MG CAPSULE PO SCH ×2 (09:19→17:12)
[2017-08-09] MEDS ORDERED: HALOPERIDOL LACTATE INJ 5 MG/1 ML VIAL IV ONE (09:31)
[2017-08-09] MEDS ORDERED: ZIPRASIDONE MESYLATE INJ/PF 20 MG SDV IM ONE (09:37)
--- NOTE | 2017-08-09 09:39 | RADIOLOGY REPORT (SQ) ---
EXAM DESCRIPTION: MRI HEAD WITHOUT COMPLETED DATE/TIME: 08/08/2017 10:42 pm REASON FOR STUDY: AMS, ataxia COMPARISON: CT brain 08/08/2017 MRI brain 03/18/2014, 06/11/2017 TECHNIQUE: Multiplanar imaging includes non-contrasted T1, T2, FLAIR, and diffusion with ADC map seq uences. Images stored on PACS. LIMITATIONS: None. FINDINGS: ANATOMY: No developmental anomalies. Normal vascular flow voids. Pituitary fossa normal. CSF SPACES: Normal in size and contour for age. No hemorrhage. CEREBRUM: No MR evidence of acute ischemic change, acute intracranial hemorrhage, mass effect, or mid line shift. There is diffuse bifrontal biparietal and bitemporal deep hemispheric white matter high- signal on FLAIR/ T2 from chronic small vessel ischemic change. This is stable compared to the previo us exams. POSTERIOR FOSSA: No MR evidence of acute ischemic change, acute hemorrhage, mass effect, or midline s hift. No significant pontine white matter disease. Cerebellopontine angles, internal auditory canal s, inner ear structures are unremarkable. Mastoid air cells are clear. DIFFUSION IMAGING: Negative for acute or sub-acute infarction. ORBITS: Post bilateral scleral banding and cataract surgery. No orbital masses PARANASAL SINUSES: No fluid levels. Mucosa normal. OTHER: No other significant finding. IMPRESSION: No acute changes. Moderate diffuse small vessel ischemic change throughout the hemispheric white matter. EVIDENCE OF ACUTE STROKE: NO. TECHNICAL DOCUMENTATION: JOB ID: [id number] [employer]- All Rights Reserved Reading location - IP/workstation name: [facility]
[2017-08-09] MEDS ORDERED: NICOTINE 14 MG/24 HR PATCH.TD24 TD ONE (11:00)
[2017-08-09] MEDS ORDERED: HALOPERIDOL LACTATE INJ 5 MG/1 ML VIAL IV PRN (12:30)
--- NOTE | 2017-08-09 14:27 | Physician Advisory Note ---
Physician Advisor ProgressNote .: Pursuant to the plan for [facility], I have reviewed the medical record for this patient. Physician Advisor Statement: Excellent documentation of acute encephalopathy, w/findings that are clearly different from her baseline. Please consider documenting, if you agree: 1. "Acute hypernatremia, suspect due to " [the encephalopathy, with associated dehydration?] 2. ? "chronic opiate [&/or benzo] dependence with withdrawal" ? Status: Appropriate iNpt status. Medicare pt, being tx'd through 1 [place] already , mental status clearly still nowhere near baseline, as today's attending is having to order Haldol & Geodon NOW + prn, & starting Rocephin, ordering sitter due to pt removing lines/confused. Expect at least 2MNs of hospital care. Thanks! CK
--- NOTE | 2017-08-09 17:00 | PDOC PROGRESS REPORT ---
Subjective Subjective:: The patient is a 81-year-old female with a past medical history significant for hypertension, breast cancer, arthritis, dementia and tobacco dependency with continuous use who was admitted on 08/08/17 for generalized weakness and worsening mental status. The patient is seen on morning rounds. Unfortunately, the patient has become severely agitated and combative; having removed her IV line and kicked multiple nursing staff. The patient is oriented to self, but clearly confused with regard to place, time, and situation. She repeatedly tells me that I have no business here and be excused myself. I did speak with her significant other who reports that he noted to the patient has become increasingly fatigued and agitated yesterday which prompted his having her evaluated in the emergency department. He reports that at baseline, she is conversational but argumentative and fixated on right ear discomfort ( recently treated with azithromycin for possible otitis media). He reports that generally she is managed at home with one-to-one supervision, but he has began to note that her needs may be exceeding the abilities to care for her at home. He states that he has spoken with the patient's son about potential need for long-term placement. Over the course of my conversation with the patient's significant other, the patient continued to become further agitated prompting the need to initiate soft restraints. Reason For Visit: ENCEPHALOPATHY, ASPIRIN TOXICITY Physical Exam Vital Signs: Temp Pulse Resp BP Pulse Ox 98.0 F 88 18 184/87 H 95 08/09/17 15:17 08/09/17 16:00 08/09/17 16:00 08/09/17 16:00 08/09/17 16:00 Intake & Output 08/08/17 08/09/17 08/10/17 06:59 06:59 06:59 Intake Total 750 Output Total 200 Balance 550 Weight 52.3 kg General appearance: PRESENT: no acute distress, thin, well-developed, well- nourished. ABSENT: cooperative Head exam: PRESENT: atraumatic, normocephalic Eye exam: PRESENT: conjunctiva pink, EOMI, PERRLA. ABSENT: scleral icterus Ear exam: PRESENT: normal external ear exam Mouth exam: PRESENT: moist, tongue midline Neck exam: ABSENT: carotid bruit, JVD, lymphadenopathy, thyromegaly Respiratory exam: PRESENT: clear to auscultation kirt, symmetrical, unlabored. ABSENT: rales, rhonchi, wheezes Cardiovascular exam: PRESENT: RRR, +S1, +S2. ABSENT: diastolic murmur, rubs, systolic murmur Pulses: PRESENT: normal dorsalis pedis pul Vascular exam: PRESENT: normal capillary refill GI/Abdominal exam: PRESENT: normal bowel sounds, soft. ABSENT: distended, guarding, mass, organolmegaly, rebound, tenderness Rectal exam: PRESENT: deferred Extremities exam: PRESENT: full ROM. ABSENT: calf tenderness, clubbing, pedal edema Neurological exam: PRESENT: alert, awake, oriented to person, CN II-XII grossly intact. ABSENT: oriented to place, oriented to time, oriented to situation, motor sensory deficit Psychiatric exam: PRESENT: agitated - Combative. ABSENT: homicidal ideation, normal mood, suicidal ideation Focused psych exam: PRESENT: paranoid, restlessness Skin exam: PRESENT: dry, intact, warm. ABSENT: cyanosis, rash Results Laboratory Results: 08/09/17 05:11 08/09/17 05:11 08/09/17 08/09/17 05:11 05:11 WBC 10.1 RBC 4.06 Hgb 12.7 Hct 38.0 MCV 94 MCH 31.2 MCHC 33.4 RDW 14.8 H Plt Count 212 Seg Neutrophils % 84.4 H Lymphocytes % 7.1 L Monocytes % 6.9 Eosinophils % 1.3 Basophils % 0.3 Absolute Neutrophils 8.5 H Absolute Lymphocytes 0.7 Absolute Monocytes 0.7 Absolute Eosinophils 0.1 Absolute Basophils 0.0 Sodium 151.3 H Potassium 4.2 Chloride 117 H Carbon Dioxide 24 Anion Gap 10 BUN 16 Creatinine 0.80 Est GFR ( Amer) > 60 Est GFR (Non-Af Amer) > 60 Glucose 87 Calcium 8.9 Total Bilirubin 0.3 AST 22 ALT 32 Alkaline Phosphatase 131 H Total Protein 5.9 L Albumin 3.5 Impressions: Head CT 08/08/17 17:54 IMPRESSION: CHRONIC MICROVASCULAR ISCHEMIA. NO ACUTE IMAGING FINDINGS IN THE BRAIN. EVIDENCE OF ACUTE STROKE: NO. Head MRI 08/08/17 19:17 IMPRESSION: No acute changes. Moderate diffuse small vessel ischemic change throughout the hemispheric white matter. EVIDENCE OF ACUTE STROKE: NO. Assessment & Plan - Diagnosis (1) Acute encephalopathy Is this a current diagnosis for this admission?: Yes Plan: Multifactorial secondary to advanced dementia, urinary tract infection, dehydration (evidenced by hypernatremia), salicylate overdose (unknown medication source), and probable hospital psychosis. Head CT is benign. Follow-up brain MRI demonstrated chronic microvascular changes only; no evidence of acute stroke. Unfortunately, the patient's agitation worsened today resulting in the patient removing multiple IVs and taking several staff members. This prompted the need for soft restraints. The patient did receive IM Geodon and Ativan with good effect overnight in the emergency department, however repeated Geodon was ineffective today. IV Haldol was also attempted without much relief of patient' s agitation. We will resume as needed IV Ativan. We will start patient on Depakote twice daily. BuSpar 5 mg every morning and 10 mg nightly. Continue IV fluids for correction of dehydration and hypernatremia. Antibiotics for urinary tract infection. Early removal of restraints when safe for patient. Provide for supportive care and ensure patient safety. The patient's significant other, Torsten, was updated on the patient's needs for restraints. He is understandably saddened by this but supportive of current plan of care. (2) Urinary tract infection Qualifiers: Urinary tract infection type: acute cystitis Is this a current diagnosis for this admission?: Yes Plan: Urinalysis was positive for nitrates and small blood. Urine culture is pending. Continue IV maintenance fluids. IV Rocephin. (3) Hypernatremia Is this a current diagnosis for this admission?: Yes Plan: Likely secondary to dehydration in the setting of urinary tract infection. Continue D51/2 NS; follow-up chemistry in the morning. (4) Salicylate intoxication Is this a current diagnosis for this admission?: Yes Plan: Poison control contacted by previous provider; recommended supportive care and follow-up salicylate level. Fortunately, this is normalized. Did discuss with the patient's significant other; he reports that there is a bottle marked aspirin in the home containing vitamin C tablets as the patient regularly takes "aspirin" for aches and pains and becomes agitated when she is not allowed to do so; he does not believe that she has access to actual aspirin tablets. Recommended that he utilize the time the patient is admitted to search the home for possible hidden pill bottles. Also recommend that the mismarked aspirin bottle be thrown out. (5) Dementia Is this a current diagnosis for this admission?: Yes Plan: Supportive care; plan as above. We will ask discharge planning to assist with possible long-term placement. The patient's son, Jeet Raya, is the patient's POA. He can be reached at . - Time Time Spent with patient: 25-34 minutes Medications reviewed and adjusted accordingly: Yes Within: within 72 hours - Inpatient Certification Based on my medical assessment, after consideration of the patient's comorbidities, presenting symptoms, or acuity I expect that the services needed warrant INPATIENT care.: Yes I certify that my determination is in accordance with my understanding of Medicare's requirements for reasonable and necessary INPATIENT services [42 CFR 412.3e].: Yes Medical Necessity: Need Close Monitoring Due to Risk of Patient Decompensation, Need For IV Fluids, Need for IV Antibiotics
[2017-08-09] MEDS: DEXTROSE 5%-1/2 NORMAL SALINE 1,000 ML IV PRN (17:12)
[2017-08-09] MEDS: LISINOPRIL 5 MG TABLET PO SCH (17:12)
[2017-08-09] MEDS: LORAZEPAM INJ 2 MG/1 ML VIAL IV PRN ×2 (17:13→23:20)
[2017-08-09] MEDS: DIVALPROEX SODIUM 250 MG TABLET.DR PO SCH (22:33)
[2017-08-09] MEDS: BUSPIRONE HCL 10 MG TABLET PO SCH (22:34)
[2017-08-10] MEDS: DEXTROSE 5%-1/2 NORMAL SALINE 1,000 ML IV PRN (04:40)
[2017-08-10 05:09] LABS: HEMATOCRIT 38.3 % (36.0-47.0); HEMOGLOBIN 12.8 g/dL (12.0-15.5); MEAN CORPUSCULAR HGB CONC 33.4 g/dL (32.0-36.0); MEAN CORPUSCULAR VOLUME 93 fl (80-97); PLATELET COUNT 230 10^3/uL (150-450); RED BLOOD COUNT 4.13 10^6/uL (3.72-5.28); RED CELL DISTRIBUTION WIDTH 14.8 % (11.5-14.0); WHITE BLOOD COUNT 8.7 10^3/uL (4.0-10.5)
[2017-08-10 05:34] LABS: ANION GAP 8 (5-19); BLOOD UREA NITROGEN 11 mg/dL (7-20); CALCIUM 8.9 mg/dL (8.4-10.2); CARBON DIOXIDE 23 mmol/L (22-30); CHLORIDE 111 mmol/L (98-107); GLUCOSE 132 mg/dL (75-110); POTASSIUM 3.9 mmol/L (3.6-5.0)
[2017-08-10] MEDS: HEPARIN SOD (PORCINE) 5,000 UNIT/ML 1 ML SYRINGE SUBCUT SCH ×3 (06:23→21:27)
[2017-08-10] MEDS: CEFTRIAXONE SODIUM 1,000 MG in DEXTROSE 5%-WATER 50 ML IV SCH (11:34)
[2017-08-10] MEDS: DIVALPROEX SODIUM 250 MG TABLET.DR PO SCH ×2 (11:35→21:27)
[2017-08-10] MEDS: BUSPIRONE HCL 10 MG TABLET PO SCH ×2 (11:35→21:27)
[2017-08-10] MEDS: DOCUSATE SODIUM 100 MG CAPSULE PO SCH ×2 (11:35→18:06)
[2017-08-10] MEDS: NICOTINE 14 MG/24 HR PATCH.TD24 TD SCH (11:35)
[2017-08-10] MEDS: LORAZEPAM INJ 2 MG/1 ML VIAL IV PRN (11:53)
[2017-08-10] MEDS ORDERED: PHENAZOPYRIDINE HCL 200 MG TABLET PO PRN (12:07)
--- NOTE | 2017-08-10 16:42 | EKG REPORT ---
SEVERITY:- ABNORMAL ECG - SINUS RHYTHM RBBB AND LAFB : Confirmed by: Broderick Boss MD 10-Aug-2017 16:41:04
--- NOTE | 2017-08-10 17:24 | PDOC PROGRESS REPORT ---
Subjective Progress Note for:: 08/10/17 Subjective:: The patient is a 81-year-old female with a past medical history significant for hypertension, breast cancer, arthritis, dementia and tobacco dependency with continuous use who was admitted on 08/08/17 for generalized weakness and worsening mental status. The patient is seen on morning rounds. She is found resting in bed comfortably on room air. She does remain in 3 point restraints secondary to frequently pulling at her IV, hitting and kicking at nurses, and attempting to get out of bed unassisted despite multiple redirections. She is oriented to herself only; unfortunately, her family is not present at this time. She does deny fever, chills, chest pain, dyspnea, abdominal pain, nausea, vomiting. Nursing reports that she has had a noted increase in her urinary frequency and incontinence. Otherwise, they have no concerns at this time. Reason For Visit: ACUTE ENCEPHALOPATHY, HYPERNATREMIA, Physical Exam Vital Signs: Temp Pulse Resp BP Pulse Ox 98.0 F 84 16 124/98 H 95 08/10/17 11:01 08/10/17 11:01 08/10/17 11:01 08/10/17 11:01 08/10/17 11:01 Intake & Output 08/09/17 08/10/17 08/11/17 06:59 06:59 06:59 Intake Total 750 2575 50 Output Total 200 600 Balance 550 1975 50 Weight 52.3 kg 53 kg General appearance: PRESENT: no acute distress, thin, well-developed. ABSENT: cooperative Head exam: PRESENT: atraumatic, normocephalic Eye exam: PRESENT: conjunctiva pink, EOMI, PERRLA. ABSENT: scleral icterus Ear exam: PRESENT: normal external ear exam Mouth exam: PRESENT: moist, tongue midline Neck exam: ABSENT: carotid bruit, JVD, lymphadenopathy, thyromegaly Respiratory exam: PRESENT: clear to auscultation kirt, symmetrical, unlabored. ABSENT: rales, rhonchi, wheezes Cardiovascular exam: PRESENT: RRR, +S1, +S2. ABSENT: diastolic murmur, rubs, systolic murmur Pulses: PRESENT: normal dorsalis pedis pul Vascular exam: PRESENT: normal capillary refill GI/Abdominal exam: PRESENT: normal bowel sounds, soft. ABSENT: distended, guarding, mass, organolmegaly, rebound, tenderness Rectal exam: PRESENT: deferred Extremities exam: PRESENT: full ROM. ABSENT: calf tenderness, clubbing, pedal edema Neurological exam: PRESENT: alert, awake, oriented to person, CN II-XII grossly intact. ABSENT: oriented to place, oriented to time, oriented to situation, motor sensory deficit Psychiatric exam: PRESENT: agitated, appropriate affect. ABSENT: homicidal ideation, normal mood, suicidal ideation Skin exam: PRESENT: dry, intact, warm. ABSENT: cyanosis, rash Results Laboratory Results: 08/10/17 04:57 08/10/17 04:57 08/10/17 08/10/17 04:57 04:57 WBC 8.7 RBC 4.13 Hgb 12.8 Hct 38.3 MCV 93 MCH 31.0 MCHC 33.4 RDW 14.8 H Plt Count 230 Sodium 142.0 Potassium 3.9 Chloride 111 H Carbon Dioxide 23 Anion Gap 8 BUN 11 Creatinine 0.57 Est GFR ( Amer) > 60 Est GFR (Non-Af Amer) > 60 Glucose 132 H Calcium 8.9 Impressions: Head CT 08/08/17 17:54 IMPRESSION: CHRONIC MICROVASCULAR ISCHEMIA. NO ACUTE IMAGING FINDINGS IN THE BRAIN. EVIDENCE OF ACUTE STROKE: NO. Head MRI 08/08/17 19:17 IMPRESSION: No acute changes. Moderate diffuse small vessel ischemic change throughout the hemispheric white matter. EVIDENCE OF ACUTE STROKE: NO. Assessment & Plan - Diagnosis (1) Acute encephalopathy Is this a current diagnosis for this admission?: Yes Plan: Multifactorial secondary to advanced dementia, urinary tract infection, dehydration (evidenced by hypernatremia), salicylate overdose (unknown medication source), and probable hospital psychosis. Head CT is benign. Follow-up brain MRI demonstrated chronic microvascular changes only; no evidence of acute stroke. Unfortunately, the patient remains agitated and immediately begins hitting and kicking at staff members when restraints removed for patient care. The patient did receive IM Geodon and Ativan with good effect overnight in the emergency department, however repeated Geodon was ineffective yesterday. IV Haldol was also attempted without much relief of patient's agitation. Continue as needed IV Ativan. The patient was started on Depakote twice daily yesterday. Continue BuSpar 5 mg every morning and 10 mg nightly, which was started yesterday. Hypernatremia has resolved; IV fluids are discontinued. Encourage p.o. fluids. Antibiotics for urinary tract infection. Early removal of restraints when safe for patient. Provide for supportive care and ensure patient safety. (2) Urinary tract infection Qualifiers: Urinary tract infection type: acute cystitis Is this a current diagnosis for this admission?: Yes Plan: Urinalysis was positive for nitrates and small blood. Urine culture showing gram-negative rods. Encourage p.o. fluids. IV Rocephin. Pyridium 3 times daily. (3) Hypernatremia Is this a current diagnosis for this admission?: Yes Plan: Resolved; likely secondary to dehydration in the setting of urinary tract infection. IV fluids are discontinued. Continue to encourage p.o. intake. (4) Salicylate intoxication Is this a current diagnosis for this admission?: Yes Plan: Resolved. Poison control contacted by previous provider; recommended supportive care and follow-up salicylate level. Fortunately, this is normalized. Did discuss with the patient's significant other; he reports that there is a bottle marked aspirin in the home containing vitamin C tablets as the patient regularly takes "aspirin" for aches and pains and becomes agitated when she is not allowed to do so; he does not believe that she has access to actual aspirin tablets. Recommended that he utilize the time the patient is admitted to search the home for possible hidden pill bottles. Also recommend that the mismarked aspirin bottle be thrown out. (5) Dementia Is this a current diagnosis for this admission?: Yes Plan: Supportive care; plan as above. We will ask discharge planning to assist with possible long-term placement. The patient's son, Jeet aRya, is the patient's POA. He can be reached at . (6) Hypertension Is this a current diagnosis for this admission?: Yes Plan: Lisinopril 5 mg p.o. daily. IV hydralazine as needed for blood pressure control. (7) GERD (gastroesophageal reflux disease) Is this a current diagnosis for this admission?: Yes Plan: Continue home dose Protonix. - Time Time Spent with patient: 15-24 minutes Medications reviewed and adjusted accordingly: Yes
[2017-08-10] MEDS: LISINOPRIL 5 MG TABLET PO SCH (18:06)
[2017-08-11] MEDS: LORAZEPAM INJ 2 MG/1 ML VIAL IV PRN ×2 (01:24→23:39)
[2017-08-11 05:09] LABS: HEMOGLOBIN 13.1 g/dL (12.0-15.5); MEAN CORPUSCULAR HEMOGLOBIN 31.1 pg (27.0-33.4); MEAN CORPUSCULAR HGB CONC 33.5 g/dL (32.0-36.0); MEAN CORPUSCULAR VOLUME 93 fl (80-97); PLATELET COUNT 209 10^3/uL (150-450); RED CELL DISTRIBUTION WIDTH 14.6 % (11.5-14.0); WHITE BLOOD COUNT 8.4 10^3/uL (4.0-10.5)
[2017-08-11 05:22] LABS: ANION GAP 9 (5-19); BLOOD UREA NITROGEN 14 mg/dL (7-20); CARBON DIOXIDE 27 mmol/L (22-30); CHLORIDE 110 mmol/L (98-107); GLUCOSE 89 mg/dL (75-110); SODIUM 145.6 mmol/L (137-145)
[2017-08-11] MEDS ORDERED: LORAZEPAM INJ 2 MG/1 ML VIAL IV ONE (05:30)
[2017-08-11] MEDS ORDERED: METOPROLOL TARTRATE PF/INJ 5 MG/5 ML SDV IV ONE (06:35)
[2017-08-11] MEDS: LANSOPRAZOLE 30 MG TAB.RAP.DR PO SCH (06:45)
[2017-08-11] MEDS: HEPARIN SOD (PORCINE) 5,000 UNIT/ML 1 ML SYRINGE SUBCUT SCH ×3 (06:46→21:57)
[2017-08-11 07:20] LABS: ANION GAP 8 (5-19); BLOOD UREA NITROGEN 15 mg/dL (7-20); CALCIUM 8.6 mg/dL (8.4-10.2); CARBON DIOXIDE 22 mmol/L (22-30); CHLORIDE 113 mmol/L (98-107); CREATINE KINASE 241 U/L (30-135); GLUCOSE 97 mg/dL (75-110)
[2017-08-11 07:31] LABS: CREATINE KINASE MB 3.54 ng/mL (<4.55); TROPONIN I 0.148 ng/mL
--- NOTE | 2017-08-11 07:32 | EKG REPORT ---
SEVERITY:- ABNORMAL ECG - ATRIAL FIBRILLATION, V-RATE 87-188 RIGHT BUNDLE BRANCH BLOCK LAFB : Confirmed by: Broderick Boss MD 11-Aug-2017 07:32:11
[2017-08-11] MEDS ORDERED: METOPROLOL TARTRATE PF/INJ 5 MG/5 ML SDV IV PRN (08:56)
[2017-08-11] MEDS: BUSPIRONE HCL 10 MG TABLET PO SCH ×2 (10:36→21:57)
[2017-08-11] MEDS: DOCUSATE SODIUM 100 MG CAPSULE PO SCH ×2 (10:36→18:47)
[2017-08-11] MEDS: DIVALPROEX SODIUM 250 MG TABLET.DR PO SCH ×2 (10:37→21:57)
[2017-08-11] MEDS: CEFTRIAXONE SODIUM 1,000 MG in DEXTROSE 5%-WATER 50 ML IV SCH (10:38)
[2017-08-11] MEDS: NICOTINE 14 MG/24 HR PATCH.TD24 TD SCH (10:40)
[2017-08-11] MEDS ORDERED: DIGOXIN INJ 0.5 MG/2 ML AMPULE IV ONE (12:00)
[2017-08-11] MEDS: DILTIAZEM HCL/D5W 125 MG/125 ML RTUINJ IV PRN ×2 (12:43→19:14)
--- NOTE | 2017-08-11 18:26 | PDOC PROGRESS REPORT ---
Subjective Progress Note for:: 08/11/17 Subjective:: The patient is a 81-year-old female with a past medical history significant for hypertension, breast cancer, arthritis, dementia and tobacco dependency with continuous use who was admitted on 08/08/17 for generalized weakness and worsening mental status. The patient is seen on morning rounds. She is found resting in bed comfortably on room air. She does remain in 4 point restraints secondary to frequently pulling at her IV, hitting and kicking at nurses, and attempting to get out of bed unassisted despite multiple redirections. She is oriented to herself only. Family is not present at this time. Overnight, the patient became agitated and her rhythm changed from NSR to AFIB with a HR of 140. She was given 5mg Lopressor IV and her rate dropped to 110 bpm. Troponin 0.148 this AM following this episode. This morning at 0900, nursing staff reports that the HR had risen to 135 bpm again. Given 5mg Lopressor IV. Cardiology notified, recommended cardizem gtt. The patient denies chest pain or shortness of breath. Reason For Visit: ACUTE ENCEPHALOPATHY, HYPERNATREMIA, Physical Exam Vital Signs: Temp Pulse Resp BP Pulse Ox 98.5 F 51 L 18 110/74 99 08/11/17 08:31 08/11/17 08:31 08/11/17 08:31 08/11/17 08:31 08/11/17 08:31 Intake & Output 08/10/17 08/11/17 08/12/17 06:59 06:59 06:59 Intake Total 2575 168 Output Total 600 Balance 1975 168 Weight 53 kg 52.6 kg General appearance: PRESENT: no acute distress Eye exam: PRESENT: conjunctiva pink, PERRLA Mouth exam: PRESENT: moist Neck exam: PRESENT: full ROM Respiratory exam: PRESENT: clear to auscultation kirt, symmetrical, unlabored Cardiovascular exam: PRESENT: irregular rhythm. ABSENT: diastolic murmur, systolic murmur Pulses: PRESENT: normal radial pulses, +1 pedal pulses bilateral GI/Abdominal exam: PRESENT: normal bowel sounds, soft. ABSENT: tenderness Rectal exam: PRESENT: deferred Extremities exam: PRESENT: full ROM. ABSENT: joint swelling, pedal edema Musculoskeletal exam: PRESENT: full ROM. ABSENT: ambulatory - restrained Neurological exam: PRESENT: alert, awake, oriented to person. ABSENT: oriented to place, oriented to time, oriented to situation Psychiatric exam: PRESENT: agitated, anxious Skin exam: PRESENT: dry, intact, normal color, warm Results Laboratory Results: 08/11/17 04:18 08/11/17 06:56 08/11/17 08/11/17 08/11/17 04:18 04:18 06:56 WBC 8.4 RBC 4.20 Hgb 13.1 Hct 39.0 MCV 93 MCH 31.1 MCHC 33.5 RDW 14.6 H Plt Count 209 Sodium 145.6 H 143.0 Potassium 4.0 4.0 Chloride 110 H 113 H Carbon Dioxide 27 22 Anion Gap 9 8 BUN 14 15 Creatinine 0.65 0.62 Est GFR ( Amer) > 60 > 60 Est GFR (Non-Af Amer) > 60 > 60 Glucose 89 97 Calcium 9.0 8.6 08/11/17 08/11/17 06:56 06:56 Creatine Kinase 241 H CK-MB (CK-2) 3.54 Troponin I 0.148 Impressions: Head CT 08/08/17 17:54 IMPRESSION: CHRONIC MICROVASCULAR ISCHEMIA. NO ACUTE IMAGING FINDINGS IN THE BRAIN. EVIDENCE OF ACUTE STROKE: NO. Head MRI 08/08/17 19:17 IMPRESSION: No acute changes. Moderate diffuse small vessel ischemic change throughout the hemispheric white matter. EVIDENCE OF ACUTE STROKE: NO. Status: Imported from PACS Assessment & Plan - Diagnosis (1) Atrial fibrillation Qualifiers: Atrial fibrillation type: paroxysmal Qualified Code(s): I48.0 - Paroxysmal atrial fibrillation Is this a current diagnosis for this admission?: Yes Plan: Nursing staff reports the patient became acutely agitated overnight. Noted her rhythm changed from NSR to AFIB withHR 140s Administered Lopressor IV with no change Cardiology consulted, they recommend Cardizem GTT Additionally, administered a single dose of IV digoxin. Upon reassessment, the patient remains in AFIB but her rate is controlled HR 100 Per cardiology, elevated troponin is likely due to atrial fibrillation. Continue to trend every 6 hours 3. (2) Acute encephalopathy Is this a current diagnosis for this admission?: Yes Plan: Secondary to advanced dementia, dehydration (as evidenced by hypernatremia), UTI , possible salicylate overdose, and hospital psychosis. Head CT negative. MRI demonstrates chronic microvascular changes, no evidence of acute stroke. Patient remains in soft limb restraints due to agitation and becoming physically aggressive toward staff. Continue IV Ativan as needed. Continue Depakote and BuSpar Hypernatremia resolved with IV fluids, those are not discontinued. Encourage p.o. fluids. Antibiotics for UTI (3) Urinary tract infection Qualifiers: Urinary tract infection type: acute cystitis Is this a current diagnosis for this admission?: Yes Plan: Urinalysis positive for nitrates and small blood. Urine culture positive for Klebsiella. Continue IV Rocephin. Pyridium 3 times daily (4) Hypernatremia Is this a current diagnosis for this admission?: Yes Plan: Resolved. Likely secondary to dehydration in the setting of infection. IVF has been discontinued. Encourage p.o. fluids. (5) Salicylate intoxication Is this a current diagnosis for this admission?: Yes Plan: Resolved. Poison control contacted regarding salicylate intoxication, recommended supportive care Salicylate levels has since normalized. Significant other reports there is a bottle marked aspirin in the home containing vitamin C tablets as the patient regularly takes aspirin for aches and pains and becomes agitated when she is not allowed to do so, he does not believe that she has access to actual aspirin tablets. Significant other encouraged to dispose of all aspirin tablets at home. (6) Dementia Is this a current diagnosis for this admission?: Yes Plan: Supportive care, plan as above. The patient's son, Jeet Raya, his POA. He can be reached at [phone] (7) Hypertension Is this a current diagnosis for this admission?: Yes Plan: Continue lisinopril 5 mg p.o. daily IV hydralazine as needed for blood pressure control (8) GERD (gastroesophageal reflux disease) Is this a current diagnosis for this admission?: Yes Plan: Continue home dose Protonix - Time Time Spent with patient: 15-24 minutes Medications reviewed and adjusted accordingly: Yes Anticipated discharge: SNF, Acute Rehab Within: within 48 hours - Inpatient Certification Based on my medical assessment, after consideration of the patient's comorbidities, presenting symptoms, or acuity I expect that the services needed warrant INPATIENT care.: Yes I certify that my determination is in accordance with my understanding of Medicare's requirements for reasonable and necessary INPATIENT services [42 CFR 412.3e].: Yes Medical Necessity: Risk of Complication if Not Cared For in Hospital
[2017-08-11] MEDS: LISINOPRIL 5 MG TABLET PO SCH (18:46)
[2017-08-12] MEDS ORDERED: NORMAL SALINE 1000 ML 1,500 ML IV ONE (02:00)
[2017-08-12] MEDS: HEPARIN SOD (PORCINE) 5,000 UNIT/ML 1 ML SYRINGE SUBCUT SCH ×3 (05:30→21:21)
[2017-08-12] MEDS: LANSOPRAZOLE 30 MG TAB.RAP.DR PO SCH (05:32)
[2017-08-12] MEDS: LORAZEPAM INJ 2 MG/1 ML VIAL IV PRN ×2 (05:33→21:20)
[2017-08-12 06:37] LABS: ABSOLUTE EOSINOPHILS # (AUTO) 0.2 10^3/uL (0.0-0.6); ABSOLUTE MONOCYTES (AUTO) 0.5 10^3/uL (0.1-1.4); ABSOLUTE NEUT (AUTO) 5.2 10^3/uL (1.7-8.2); BASOPHILS % (AUTO) 0.6 % (0-2); EOSINOPHILS % (AUTO) 2.2 % (0-6); HEMOGLOBIN 12.3 g/dL (12.0-15.5); LYMPHOCYTES % (AUTO) 14.5 % (13-45); MEAN CORPUSCULAR HEMOGLOBIN 30.7 pg (27.0-33.4); MEAN CORPUSCULAR HGB CONC 33.2 g/dL (32.0-36.0); MEAN CORPUSCULAR VOLUME 93 fl (80-97); MONOCYTES % (AUTO) 7.8 % (3-13); PLATELET COUNT 206 10^3/uL (150-450); RED BLOOD COUNT 3.99 10^6/uL (3.72-5.28); RED CELL DISTRIBUTION WIDTH 14.4 % (11.5-14.0); SEGMENTED NEUTROPHILS % (AUTO) 74.9 % (42-78); TOTAL CELLS COUNTED % (AUTO) 100 %
[2017-08-12 06:52] LABS: ALANINE AMINOTRANSFERASE 36 U/L (9-52); ALBUMIN 3.1 g/dL (3.5-5.0); ALKALINE PHOSPHATASE 121 U/L (38-126); ANION GAP 8 (5-19); ASPARTATE AMINO TRANSFERASE 38 U/L (14-36); BILIRUBIN,DIRECT 0.4 mg/dL (0.0-0.4); BILIRUBIN,TOTAL 0.6 mg/dL (0.2-1.3); BLOOD UREA NITROGEN 26 mg/dL (7-20); CARBON DIOXIDE 21 mmol/L (22-30); CHLORIDE 115 mmol/L (98-107); GLUCOSE 108 mg/dL (75-110); POTASSIUM 3.6 mmol/L (3.6-5.0); SODIUM 144.3 mmol/L (137-145); TOTAL PROTEIN 5.4 g/dL (6.3-8.2)
[2017-08-12] MEDS: CEFTRIAXONE SODIUM 1,000 MG in DEXTROSE 5%-WATER 50 ML IV SCH (12:00)
[2017-08-12] MEDS: DOCUSATE SODIUM 100 MG CAPSULE PO SCH ×2 (12:16→16:14)
[2017-08-12] MEDS: DIVALPROEX SODIUM 250 MG TABLET.DR PO SCH ×2 (12:16→21:20)
[2017-08-12] MEDS: NICOTINE 14 MG/24 HR PATCH.TD24 TD SCH (12:16)
[2017-08-12] MEDS: BUSPIRONE HCL 10 MG TABLET PO SCH ×2 (12:16→21:20)
[2017-08-12] MEDS ORDERED: CIPROFLOXACIN 400 MG/D5W RTU 400 MG/200 ML RTUPB IV ONE (12:30)
[2017-08-12] MEDS: LISINOPRIL 5 MG TABLET PO SCH (16:15)
[2017-08-12] MEDS: CIPROFLOXACIN 400 MG/D5W RTU 400 MG/200 ML RTUPB IV SCH (21:20)
--- NOTE | 2017-08-12 22:12 | PDOC PROGRESS REPORT ---
Subjective Progress Note for:: 08/12/17 Subjective:: The patient is a 81-year-old female with a past medical history significant for hypertension, breast cancer, arthritis, dementia and tobacco dependency with continuous use who was admitted on 08/08/17 for generalized weakness and worsening mental status. The patient is seen on morning rounds. She is found resting in bed comfortably on room air. She does remain in 3 point restraints secondary to frequently pulling at her IV, hitting and kicking at nurses, and attempting to get out of bed unassisted despite multiple redirections. She is oriented to herself only. Family is not present at this time. The patient remains roxy cardizem gtt for AFIB. Reason For Visit: ACUTE ENCEPHALOPATHY, HYPERNATREMIA, Physical Exam Vital Signs: Temp Pulse Resp BP Pulse Ox 97.9 F 65 24 H 147/81 H 95 08/12/17 19:41 08/12/17 19:41 08/12/17 19:41 08/12/17 19:41 08/12/17 19:41 Intake & Output 08/11/17 08/12/17 08/13/17 06:59 06:59 06:59 Intake Total 168 1815 572 Output Total 0 Balance 168 1815 572 Weight 52.6 kg 53 kg General appearance: PRESENT: thin Eye exam: PRESENT: conjunctiva pink, PERRLA Mouth exam: PRESENT: moist Neck exam: PRESENT: full ROM Respiratory exam: PRESENT: clear to auscultation kirt, symmetrical, unlabored Cardiovascular exam: PRESENT: irregular rhythm Pulses: PRESENT: normal radial pulses, normal dorsalis pedis pul Vascular exam: PRESENT: normal capillary refill GI/Abdominal exam: PRESENT: normal bowel sounds, soft. ABSENT: tenderness Rectal exam: PRESENT: deferred Extremities exam: PRESENT: full ROM Musculoskeletal exam: PRESENT: full ROM. ABSENT: ambulatory Neurological exam: PRESENT: alert, awake, oriented to person. ABSENT: oriented to place, oriented to time, oriented to situation Psychiatric exam: PRESENT: agitated, anxious Skin exam: PRESENT: dry, intact, normal color, warm Results Laboratory Results: 08/12/17 06:23 08/12/17 06:23 08/12/17 08/12/17 06:23 06:23 WBC 7.0 RBC 3.99 Hgb 12.3 Hct 37.0 MCV 93 MCH 30.7 MCHC 33.2 RDW 14.4 H Plt Count 206 Seg Neutrophils % 74.9 Lymphocytes % 14.5 Monocytes % 7.8 Eosinophils % 2.2 Basophils % 0.6 Absolute Neutrophils 5.2 Absolute Lymphocytes 1.0 Absolute Monocytes 0.5 Absolute Eosinophils 0.2 Absolute Basophils 0.0 Sodium 144.3 Potassium 3.6 Chloride 115 H Carbon Dioxide 21 L Anion Gap 8 BUN 26 H Creatinine 0.82 Est GFR ( Amer) > 60 Est GFR (Non-Af Amer) > 60 Glucose 108 Calcium 8.0 L Total Bilirubin 0.6 AST 38 H ALT 36 Alkaline Phosphatase 121 Total Protein 5.4 L Albumin 3.1 L 08/11/17 08/11/17 08/11/17 06:56 06:56 13:35 Creatine Kinase 241 H CK-MB (CK-2) 3.54 Troponin I 0.148 Cancelled 08/11/17 08/11/17 14:41 19:10 Creatine Kinase CK-MB (CK-2) Troponin I 0.704 1.130 Impressions: Head CT 08/08/17 17:54 IMPRESSION: CHRONIC MICROVASCULAR ISCHEMIA. NO ACUTE IMAGING FINDINGS IN THE BRAIN. EVIDENCE OF ACUTE STROKE: NO. Head MRI 08/08/17 19:17 IMPRESSION: No acute changes. Moderate diffuse small vessel ischemic change throughout the hemispheric white matter. EVIDENCE OF ACUTE STROKE: NO. Status: Imported from PACS Assessment & Plan - Diagnosis (1) Atrial fibrillation Qualifiers: Atrial fibrillation type: paroxysmal Qualified Code(s): I48.0 - Paroxysmal atrial fibrillation Is this a current diagnosis for this admission?: Yes Plan: Improved, now rate controlled. Nursing staff reports the patient became acutely agitated overnight 08/10-. Noted her rhythm changed from NSR to AFIB withHR 140s Cardiology consulted, they recommend Cardizem GTTand a single dose of IV digoxin. Upon reassessment, the patient remains in AFIB but her rate is controlled HR 100 Per cardiology, elevated troponin is likely due to atrial fibrillation. No plan for intervention (2) Acute encephalopathy Is this a current diagnosis for this admission?: Yes Plan: Secondary to advanced dementia, dehydration (as evidenced by hypernatremia), UTI , possible salicylate overdose, and hospital psychosis. Head CT negative. MRI demonstrates chronic microvascular changes, no evidence of acute stroke. Patient remains in soft limb restraints due to agitation and becoming physically aggressive toward staff. Continue IV Ativan as needed. Continue Depakote and BuSpar Hypernatremia resolved with IV fluids, those are now discontinued. Encourage p.o. fluids. Antibiotics for UTI (3) Urinary tract infection Qualifiers: Urinary tract infection type: acute cystitis Is this a current diagnosis for this admission?: Yes Plan: Urinalysis positive for nitrates and small blood. Urine culture positive for Klebsiella. Changed IV Rocephin to IV Cipro for better antibiotic coverave according to culture and sensitivities. Pyridium 3 times daily (4) Hypernatremia Is this a current diagnosis for this admission?: Yes Plan: Resolved. Likely secondary to dehydration in the setting of infection. IVF has been discontinued. Encourage p.o. fluids. (5) Salicylate intoxication Is this a current diagnosis for this admission?: Yes Plan: Resolved. Poison control contacted regarding salicylate intoxication, recommended supportive care Salicylate levels has since normalized. Significant other reports there is a bottle marked aspirin in the home containing vitamin C tablets as the patient regularly takes aspirin for aches and pains and becomes agitated when she is not allowed to do so, he does not believe that she has access to actual aspirin tablets. Significant other encouraged to dispose of all aspirin tablets at home. (6) Dementia Is this a current diagnosis for this admission?: Yes Plan: Supportive care, plan as above. The patient's son, Jeet Raya, his POA. He can be reached at [phone] He reports that patient is well cared for at home. She has 2 female caregivers who are home during the day and the patient's significant other is home at night. (7) Hypertension Is this a current diagnosis for this admission?: Yes Plan: Continue lisinopril 5 mg p.o. daily IV hydralazine as needed for blood pressure control (8) GERD (gastroesophageal reflux disease) Is this a current diagnosis for this admission?: Yes Plan: Continue home dose Protonix - Time Time Spent with patient: 15-24 minutes Medications reviewed and adjusted accordingly: Yes Anticipated discharge: Home - Inpatient Certification Based on my medical assessment, after consideration of the patient's comorbidities, presenting symptoms, or acuity I expect that the services needed warrant INPATIENT care.: Yes I certify that my determination is in accordance with my understanding of Medicare's requirements for reasonable and necessary INPATIENT services [42 CFR 412.3e].: Yes Medical Necessity: Need for IV Antibiotics
[2017-08-13] MEDS: DILTIAZEM HCL/D5W 125 MG/125 ML RTUINJ IV PRN ×2 (01:40→18:09)
[2017-08-13] MEDS: HEPARIN SOD (PORCINE) 5,000 UNIT/ML 1 ML SYRINGE SUBCUT SCH ×3 (05:43→23:19)
[2017-08-13] MEDS: LANSOPRAZOLE 30 MG TAB.RAP.DR PO SCH (05:43)
[2017-08-13] MEDS: DOCUSATE SODIUM 100 MG CAPSULE PO SCH ×2 (12:03→17:02)
[2017-08-13] MEDS: DIVALPROEX SODIUM 250 MG TABLET.DR PO SCH ×2 (12:03→23:18)
[2017-08-13] MEDS: BUSPIRONE HCL 10 MG TABLET PO SCH ×2 (12:03→23:18)
[2017-08-13] MEDS: NICOTINE 14 MG/24 HR PATCH.TD24 TD SCH (12:04)
[2017-08-13] MEDS: CIPROFLOXACIN 400 MG/D5W RTU 400 MG/200 ML RTUPB IV SCH (12:04)
[2017-08-13] MEDS: LORAZEPAM INJ 2 MG/1 ML VIAL IV PRN (13:00)
--- NOTE | 2017-08-13 16:59 | PDOC PROGRESS REPORT ---
Subjective Subjective:: The patient is a 81-year-old female with a past medical history significant for hypertension, breast cancer, arthritis, dementia and tobacco dependency with continuous use who was admitted on 08/08/17 for generalized weakness and worsening mental status. The patient is seen on morning rounds with her significant other present she is found resting in bed comfortably on room air.; . She is alert and oriented to self at this time; refuses to answer questions regarding her significant other, unable to confirm whether or not she recognizes him. Otherwise, she is oriented to her home and the year 1952.the she is found resting in bed comfortably on room air. She remains in three-point restraints secondary to continued attempts to remove her IV and kick at nursing staff. She denies fever, chest pain, palpitations, dyspnea, abdominal pain. Overall, the patient appears to be calmer than she has been previously and nursing states that they are optimistic at being able to remove the restraints today. Last as needed Ativan dose was overnight. Family has no new concerns today. Reason For Visit: ACUTE ENCEPHALOPATHY, HYPERNATREMIA, Physical Exam Vital Signs: Temp Pulse Resp BP Pulse Ox 98.0 F 66 22 H 164/85 H 100 08/13/17 15:46 08/13/17 15:46 08/13/17 15:46 08/13/17 15:46 08/13/17 15:46 Intake & Output 08/12/17 08/13/17 08/14/17 06:59 06:59 06:59 Intake Total 1815 872 Output Total 0 400 Balance 1815 472 Weight 53 kg 53.6 kg General appearance: PRESENT: no acute distress, thin, well-developed, well- nourished. ABSENT: cooperative Head exam: PRESENT: atraumatic, normocephalic Eye exam: PRESENT: conjunctiva pink, EOMI, PERRLA. ABSENT: scleral icterus Ear exam: PRESENT: normal external ear exam Mouth exam: PRESENT: moist, tongue midline Neck exam: ABSENT: carotid bruit, JVD, lymphadenopathy, thyromegaly Respiratory exam: PRESENT: clear to auscultation kirt, symmetrical, unlabored. ABSENT: rales, rhonchi, wheezes Cardiovascular exam: PRESENT: irregular rhythm - Rate controlled A. fib, +S1, + S2. ABSENT: diastolic murmur, rubs, systolic murmur Pulses: PRESENT: normal dorsalis pedis pul Vascular exam: PRESENT: normal capillary refill GI/Abdominal exam: PRESENT: normal bowel sounds, soft. ABSENT: distended, guarding, mass, organolmegaly, rebound, tenderness Rectal exam: PRESENT: deferred Extremities exam: PRESENT: full ROM. ABSENT: calf tenderness, clubbing, pedal edema Neurological exam: PRESENT: alert, awake, oriented to person, CN II-XII grossly intact. ABSENT: oriented to place, oriented to time, oriented to situation, motor sensory deficit Psychiatric exam: PRESENT: agitated, appropriate affect. ABSENT: homicidal ideation, suicidal ideation Skin exam: PRESENT: dry, intact, warm, other - Scattered ecchymosis bilateral upper extremities. ABSENT: cyanosis, rash Results Laboratory Results: 08/12/17 06:23 08/12/17 06:23 08/11/17 08/11/17 08/11/17 06:56 06:56 13:35 Creatine Kinase 241 H CK-MB (CK-2) 3.54 Troponin I 0.148 Cancelled 08/11/17 08/11/17 08/13/17 14:41 19:10 12:55 Creatine Kinase CK-MB (CK-2) Troponin I 0.704 1.130 0.386 Impressions: Head CT 08/08/17 17:54 IMPRESSION: CHRONIC MICROVASCULAR ISCHEMIA. NO ACUTE IMAGING FINDINGS IN THE BRAIN. EVIDENCE OF ACUTE STROKE: NO. Head MRI 08/08/17 19:17 IMPRESSION: No acute changes. Moderate diffuse small vessel ischemic change throughout the hemispheric white matter. EVIDENCE OF ACUTE STROKE: NO. Assessment & Plan - Diagnosis (1) Acute encephalopathy Is this a current diagnosis for this admission?: Yes Plan: Slight improvement today; reduced frequency of Ativan dosing. Multifactorial secondary to advanced dementia, urinary tract infection, dehydration (evidenced by hypernatremia), salicylate overdose (unknown medication source), and probable hospital psychosis. Head CT is benign. Follow-up brain MRI demonstrated chronic microvascular changes only; no evidence of acute stroke. LFTs are reassuring; ammonia earlier this week was normal. WBCs are normal, patient is afebrile, unlikely to have additional infectious process (other than urinary tract infection). Continue as needed IV Ativan. Continue Depakote twice daily for agitation/aggression. Continue BuSpar 5 mg every morning and 10 mg nightly. Encourage p.o. fluids. Antibiotics for urinary tract infection. Early removal of restraints when safe for patient. Provide for supportive care and ensure patient safety. Consider psychiatric referral. (2) Urinary tract infection Qualifiers: Urinary tract infection type: acute cystitis Is this a current diagnosis for this admission?: Yes Plan: Urinalysis was positive for nitrates and small blood. Urine culture demonstrated pansensitive Klebsiella pneumoniae Encourage p.o. fluids. The patient received IV Rocephin 3 day followed by IV Rocephin. Followed by IV Cipro 1 day and now transitioned to p.o. Cipro for completion of antibiotic course. Day #5 of 7. Pyridium 3 times daily. (3) Hypernatremia Is this a current diagnosis for this admission?: Yes Plan: Resolved; likely secondary to dehydration in the setting of urinary tract infection. IV fluids are discontinued. Continue to encourage p.o. intake. (4) Salicylate intoxication Is this a current diagnosis for this admission?: Yes Plan: Resolved. Poison control contacted by previous provider; recommended supportive care and follow-up salicylate level. Fortunately, this is normalized. Did discuss with the patient's significant other; he reports that there is a bottle marked aspirin in the home containing vitamin C tablets as the patient regularly takes "aspirin" for aches and pains and becomes agitated when she is not allowed to do so; he does not believe that she has access to actual aspirin tablets. Recommended that he utilize the time the patient is admitted to search the home for possible hidden pill bottles. Also recommend that the mismarked aspirin bottle be thrown out. (5) Dementia Is this a current diagnosis for this admission?: Yes Plan: Supportive care; plan as above. We will ask discharge planning to assist with possible long-term placement. The patient's son, Jeet Raya, is the patient's POA. He can be reached at . (6) Hypertension Is this a current diagnosis for this admission?: Yes Plan: Lisinopril 5 mg p.o. daily. IV hydralazine as needed for blood pressure control. Now on diltiazem drip for A. fib. Cardiology has been consulted; will defer medication management to cardiology. Appreciate their evaluation and assistance. (7) GERD (gastroesophageal reflux disease) Is this a current diagnosis for this admission?: Yes Plan: Continue home dose Protonix. (8) Atrial fibrillation Qualifiers: Atrial fibrillation type: paroxysmal Qualified Code(s): I48.0 - Paroxysmal atrial fibrillation Is this a current diagnosis for this admission?: Yes Plan: Improved; now rate controlled. Nursing staff noted rhythm change from normal sinus rhythm to A. fib with RVR overnight 08/10-. She was provided a single dose of IV digoxin and placed on a Cardizem drip. Start daily aspirin therapy. Cardiology has been consulted; primary plan per cardiology. Appreciate their evaluation recommendations. - Time Time Spent with patient: 15-24 minutes Medications reviewed and adjusted accordingly: Yes Anticipated discharge: Other - Unclear discharge plan; home with home health versus long-term care.
[2017-08-13] MEDS: LISINOPRIL 5 MG TABLET PO SCH (17:02)
--- NOTE | 2017-08-13 21:04 | EKG REPORT ---
SEVERITY:- ABNORMAL ECG - ATRIAL FIBRILLATION, V-RATE 114-158 RBBB AND LAFB : Confirmed by: Broderick Boss MD 13-Aug-2017 21:02:28
[2017-08-13] MEDS: CIPROFLOXACIN HCL 500 MG TABLET PO SCH (23:16)
[2017-08-14] MEDS: LORAZEPAM INJ 2 MG/1 ML VIAL IV PRN (00:13)
[2017-08-14] MEDS: DILTIAZEM HCL/D5W 125 MG/125 ML RTUINJ IV PRN ×2 (03:33→14:16)
--- NOTE | 2017-08-14 05:06 | CONSULTATION REPORT E ---
Consultation Report NAME: NICK ST : 1935 AGE: 81Y DATE: 08/13/2017 319 A TO: JACKY FRANKEL M.D. FROM: SONI VELEZ M.D. Requesting Physician REASON FOR CONSULTATION: The patient with atrial fibrillation with rapid ventricular response and elevated troponin I. Note: The patient is very much confused, agitated, and demented. Hence, unable to obtain a history from the patient. HISTORY OF PRESENT ILLNESS: The patient is a 81-year-old female with known history of hypertension, dementia, and history of breast cancer and arthritis, and tobacco dependency, with questionable COPD, who was admitted with confusion, thought to be secondary to acute salicylate intoxication on top of the patient's baseline dementia. The patient also found to be in atrial fibrillation with episodes of rapid ventricular response when she is agitated. The patient's troponin I has been elevated. It initially was 0.148, and came down to 0.704, and went up again to 1.130, and subsequently is 0.386. The patient otherwise seems to be lying flat in bed without orthopnea. The patient's blood pressure has remained stable. Her heart rate goes anywhere when she is stable at a rate of about 95 beats per minute, atrial fibrillation, to a ventricular response of 152 beats per minute. She is on 15 mg/h of Cardizem drip. PAST MEDICAL HISTORY: As mentioned earlier, is negative for coronary artery disease or WA. She has a history of bronchitis. Clinically by exam, she has COPD, but no documented history of COPD. She also has a history of breast cancer and a history of arthritis and history of dementia. She also smokes. There is no history of TIA or CVA. There is no history of chronic kidney disease. PAST SURGICAL HISTORY: Positive for a hysterectomy, right mastectomy for cancer, orthopedic surgery, and then tonsillectomy. SOCIAL HISTORY: The patient is a smoker. There is no history of EtOH abuse. The patient does seem to take prescription medications in excess. ALLERGIES: She is allergic to PENICILLIN, SULFA, AND VIOXX. FAMILY HISTORY: Positive for COPD. ADVANCED DIRECTIVES: The patient is a full code. Her live-in city administrator/boyfriend and her son are the surrogate healthcare decision makers. REVIEW OF SYSTEMS: Not obtainable from the patient in view of her confusion. MEDICATIONS: 1. She is on Tylenol 325 mg p.o. q.4 hours p.r.n. 2. Aspirin 81 mg p.o. daily. 3. She is on BuSpar 10 mg p.o. at bedtime. 4. She is on BuSpar 5 mg p.o. q.a.m. 5. She is on Cipro 500 mg p.o. q.12 hours. 6. She is on Depakote 250 mg p.o. q.12 hours. 7. Colace 100 mg p.o. b.i.d. 8. She is on heparin 5000 units subcutaneously q.8 hours. 9. She is on hydralazine 10 mg IV q.6 hours p.r.n. 10. She is on DuoNeb 3 mL nebulizer q.12 hours p.r.n. 11. She is on a Cardizem drip at 15 mg/h. 12. She is on Prilosec 30 mg p.o. q.6 hours. 13. She is on lisinopril 5 mg p.o. *------*. 14. She is on lorazepam 2 mg IV q.6 hours p.r.n. 15. She is on Maalox 30 mL p.o. q.6 hours. 16. She is on metoprolol 5 mg IV q.6 hours p.r.n. 17. She is on a Nicoderm patch 14 mg/24 hours 1 each transdermally daily. 18. She is on Pyridium 200 mg p.o. t.i.d. p.r.n. PHYSICAL EXAMINATION: GENERAL: At present, the patient is very agitated. VITAL SIGNS: Her heart rate earlier was just 95; now is 152, atrial fibrillation with rapid ventricular response. Her temperature is 97.9 degrees Fahrenheit. Her blood pressure is 161/72. Saturation is 100% on room air. HEENT: HEENT: Head is atraumatic, normocephalic. Eyes: Pupils are equal, round, regular, reactive to light. ENT: Ears negative. NECK: Supple. There is no JVD. Carotids are equal. There is no bruit. There is no lymphadenopathy. Trachea is central. LUNGS: Show diminished air entry, prolonged expiration, without any rales, rhonchi, or wheezing. HEART: S1 and S2 are heard. The S1 is of variable intensity. There is no S3 gallop. There is a systolic murmur in the left sternal border on the apex. There is no rub. ABDOMEN: Soft, nontender. There is no hepatosplenomegaly. Bowel sounds are well heard. There are no tender areas or masses. EXTREMITIES: Femorals are diminished. Leg pulses diminished. There is no leg edema. There is no cyanosis or clubbing. There is no DVT or cellulitis. There is no calf tenderness. CENTRAL NERVOUS SYSTEM: The patient is confused, but moves all 4 extremities. PSYCHIATRIC: The patient does appear to be agitated at present and confused. DIAGNOSTIC STUDIES: The patient's urine shows evidence of urinary tract infection. Her urine culture shows Klebsiella pneumoniae. The patient is on antibiotics, Cipro, for that. The patient's EKG shows atrial fibrillation with a ventricular response of 135 beats per minute, right bundle branch block pattern, and left anterior fascicular block pattern. The patient's MRA of the head and head CT have been reviewed. The patient's troponin I is 0.148 to 0.074 to 1.130 and 0.386. Her sodium is 144.3, potassium 3.6, chloride is 115, CO2 is 21. The patient's BUN is 26, creatinine 0.82. GFR is greater than 60. Her glucose is 108. Her calcium is 8. Her liver function tests show a slightly elevated AST of 38. The rest of the liver function tests are normal. The patient's white count is 7000, hemoglobin is 12.3, hematocrit is 37, and the platelet count is 206,000. Her salicylates are elevated at 21.4 on admission, and on the second it is 18.9. Acetaminophen level is less than 10. Her urine opiate, urine methadone, urine barbiturate, urine phencyclidine, urine amphetamine, urine benzodiazepine, a urine marijuana, and a urine cocaine screen are all negative. IMPRESSION: 1. Elevated troponin I, most likely secondary to atrial fibrillation with rapid ventricular response, but since the patient's confusion, cannot entirely exclude a non-ST elevation WA since the patient is not able to give a history. Would recommend adding Transderm-Nitro 5 mg/24 hours topically daily; on 12 hours, off 12 hours. Continue aspirin. 2. Atrial fibrillation with episodes of rapid ventricular response. Continue Cardizem drip and p.r.n. Digoxin doses. 3. Bifascicular block. The patient having right bundle branch block pattern and left anterior fascicular block. 4. Dementia with behavioral changes. 5. Urinary tract infection with Klebsiella. 6. Salicylate intoxication. 7. Acute encephalopathy due to salicylate intoxication in a patient already with dementia. 8. Hypertension. 9. Arthritis. 10. Tobacco abuse. 11. Possible COPD by exam. PLAN: 1. As mentioned earlier, the patient is not a candidate for long-term anticoagulation in view of the patient's advanced dementia. Will discuss this with the patient's live-in boyfriend. 2. Continue the Cardizem, and later transition to p.o. Cardizem. 3. Continue the patient on aspirin. 4. Continue antibiotics. 5. Continue her Nicoderm patch. Note: The patient was seen around 12:45 p.m. today. A total of 55 minutes spent with the patient, including review of the patient's chart, and her medications have been reviewed; medications added. Medical decision-making is of high complexity in view of the patient unable to give a history, with the patient having elevated troponin I. Will recheck the patient's EKG and troponin I in the morning. Discussed with the hospitalist taking care of the patient. Thanking you. DICTATING PHYSICIAN: JACKY FRANKEL M.D. [id number] PHY#: [id number] ID: [id number] JOB#: [id number] ACCT: [id number] cc:JACKY FRANKEL M.D. >
[2017-08-14 05:20] LABS: HEMATOCRIT 36.1 % (36.0-47.0); HEMOGLOBIN 12.2 g/dL (12.0-15.5); MEAN CORPUSCULAR HEMOGLOBIN 31.2 pg (27.0-33.4); MEAN CORPUSCULAR HGB CONC 33.9 g/dL (32.0-36.0); MEAN CORPUSCULAR VOLUME 92 fl (80-97); PLATELET COUNT 225 10^3/uL (150-450); RED BLOOD COUNT 3.92 10^6/uL (3.72-5.28); RED CELL DISTRIBUTION WIDTH 14.3 % (11.5-14.0); WHITE BLOOD COUNT 7.6 10^3/uL (4.0-10.5)
[2017-08-14] MEDS: LANSOPRAZOLE 30 MG TAB.RAP.DR PO SCH (05:30)
[2017-08-14] MEDS: HEPARIN SOD (PORCINE) 5,000 UNIT/ML 1 ML SYRINGE SUBCUT SCH ×3 (05:30→21:25)
[2017-08-14 05:47] LABS: ANION GAP 12 (5-19); BLOOD UREA NITROGEN 19 mg/dL (7-20); CARBON DIOXIDE 22 mmol/L (22-30); CHLORIDE 113 mmol/L (98-107); GLUCOSE 99 mg/dL (75-110); POTASSIUM 4.1 mmol/L (3.6-5.0); SODIUM 146.7 mmol/L (137-145)
--- NOTE | 2017-08-14 07:48 | EKG REPORT ---
SEVERITY:- ABNORMAL ECG - ATRIAL FIBRILLATION, V-RATE 63-111 RIGHT BUNDLE BRANCH BLOCK : Confirmed by: Broderick Boss MD 14-Aug-2017 07:47:50
[2017-08-14] MEDS: NITROGLYCERIN 5 MG (0.2 MG/HR) PATCH.TD24 TD SCH (10:32)
[2017-08-14] MEDS: DIVALPROEX SODIUM 250 MG TABLET.DR PO SCH ×3 (12:00→21:25)
[2017-08-14] MEDS ORDERED: DIGOXIN INJ 0.5 MG/2 ML AMPULE IV PRN (12:39)
[2017-08-14] MEDS ORDERED: LISINOPRIL 5 MG TABLET PO SCH (12:41)
[2017-08-14] MEDS ORDERED: LORAZEPAM INJ 2 MG/1 ML VIAL IV PRN (12:47)
[2017-08-14] MEDS: ASPIRIN 81 MG TABLET, CHEWABLE PO SCH (13:48)
[2017-08-14] MEDS: DOCUSATE SODIUM 100 MG CAPSULE PO SCH ×2 (13:48→17:25)
[2017-08-14] MEDS: CIPROFLOXACIN HCL 500 MG TABLET PO SCH ×2 (13:48→21:25)
[2017-08-14] MEDS: BUSPIRONE HCL 10 MG TABLET PO SCH ×2 (13:48→21:25)
[2017-08-14] MEDS: NICOTINE 14 MG/24 HR PATCH.TD24 TD SCH (14:16)
[2017-08-14] MEDS: LISINOPRIL 10 MG TABLET PO SCH (17:25)
--- NOTE | 2017-08-14 17:41 | PDOC PROGRESS REPORT ---
Subjective Progress Note for:: 08/14/17 Subjective:: The patient is a 81-year-old female with a past medical history significant for hypertension, breast cancer, arthritis, dementia and tobacco dependency with continuous use who was admitted on 08/08/17 for generalized weakness and worsening mental status. The patient is seen on morning rounds. She is found resting in bed comfortably on room air. She is awake and talking to herself about the beach, but will not open her eyes or answer questions for me today. She does remain and soft point restraints secondary to continued attempts to remove her IV. Did have a long discussion with the patient's son today, Jeet Raya. He was updated on the patient's progress so far and we discussed potential discharge plans (home with increased home health services, short-term rehab in [place] followed by discharge to home versus Memory care center, versus discharge to memory care center in [place]). Mr. Raya plans to discuss the patient's CODE STATUS with his brothers and will notify us if they agree to change to DNR/DNI. No new concerns per nursing. Reason For Visit: ACUTE ENCEPHALOPATHY, HYPERNATREMIA, Physical Exam Vital Signs: Temp Pulse Resp BP Pulse Ox 98.5 F 85 15 134/74 H 98 08/14/17 15:33 08/14/17 15:33 08/14/17 15:33 08/14/17 15:33 08/14/17 15:33 Intake & Output 08/13/17 08/14/17 08/15/17 06:59 06:59 06:59 Intake Total 872 609 0 Output Total 400 Balance 472 609 0 Weight 53.6 kg 52.9 kg General appearance: PRESENT: no acute distress, thin, well-developed. ABSENT: cooperative Head exam: PRESENT: atraumatic, normocephalic Eye exam: PRESENT: conjunctiva pink, EOMI, PERRLA. ABSENT: scleral icterus Ear exam: PRESENT: normal external ear exam Mouth exam: PRESENT: moist, tongue midline Teeth exam: PRESENT: other - dentures Neck exam: ABSENT: carotid bruit, JVD, lymphadenopathy, thyromegaly Respiratory exam: PRESENT: clear to auscultation kirt, symmetrical, unlabored. ABSENT: rales, rhonchi, wheezes Cardiovascular exam: PRESENT: irregular rhythm, +S1, +S2, tachycardia. ABSENT: diastolic murmur, rubs, systolic murmur Pulses: PRESENT: normal dorsalis pedis pul Vascular exam: PRESENT: normal capillary refill GI/Abdominal exam: PRESENT: normal bowel sounds, soft. ABSENT: distended, guarding, mass, organolmegaly, rebound, tenderness Rectal exam: PRESENT: deferred Extremities exam: PRESENT: full ROM. ABSENT: calf tenderness, clubbing, pedal edema Neurological exam: PRESENT: alert, awake, oriented to person, CN II-XII grossly intact. ABSENT: oriented to place, oriented to time, oriented to situation, motor sensory deficit Psychiatric exam: PRESENT: agitated, appropriate affect. ABSENT: homicidal ideation, suicidal ideation Focused psych exam: PRESENT: restlessness Skin exam: PRESENT: dry, intact, warm, other - Scattered ecchymosis. ABSENT: cyanosis, rash Results Laboratory Results: 08/14/17 04:46 08/14/17 04:46 08/14/17 08/14/17 04:46 04:46 WBC 7.6 RBC 3.92 Hgb 12.2 Hct 36.1 MCV 92 MCH 31.2 MCHC 33.9 RDW 14.3 H Plt Count 225 Sodium 146.7 H Potassium 4.1 Chloride 113 H Carbon Dioxide 22 Anion Gap 12 BUN 19 Creatinine 0.71 Est GFR ( Amer) > 60 Est GFR (Non-Af Amer) > 60 Glucose 99 Calcium 9.0 08/11/17 08/11/17 08/11/17 06:56 06:56 13:35 Creatine Kinase 241 H CK-MB (CK-2) 3.54 Troponin I 0.148 Cancelled 08/11/17 08/11/17 08/13/17 14:41 19:10 12:55 Creatine Kinase CK-MB (CK-2) Troponin I 0.704 1.130 0.386 08/14/17 08/14/17 04:46 04:46 Creatine Kinase 213 H CK-MB (CK-2) Troponin I 0.224 Impressions: Head CT 08/08/17 17:54 IMPRESSION: CHRONIC MICROVASCULAR ISCHEMIA. NO ACUTE IMAGING FINDINGS IN THE BRAIN. EVIDENCE OF ACUTE STROKE: NO. Head MRI 08/08/17 19:17 IMPRESSION: No acute changes. Moderate diffuse small vessel ischemic change throughout the hemispheric white matter. EVIDENCE OF ACUTE STROKE: NO. Assessment & Plan - Diagnosis (1) Acute encephalopathy Is this a current diagnosis for this admission?: Yes Plan: Stable; continues to require soft limb restraints and as needed Ativan. Multifactorial secondary to advanced dementia, urinary tract infection, dehydration (evidenced by hypernatremia), salicylate overdose (unknown medication source), and probable hospital psychosis. Head CT is benign. Follow-up brain MRI demonstrated chronic microvascular changes only; no evidence of acute stroke. LFTs are reassuring; ammonia earlier this week was normal. WBCs are normal, patient is afebrile, unlikely to have additional infectious process (other than urinary tract infection). Continue as needed IV Ativan. Increase Depakote to three times daily for agitation/aggression. Continue BuSpar 5 mg every morning and 10 mg nightly. Encourage p.o. fluids. Antibiotics for urinary tract infection. Early removal of restraints when safe for patient. Provide for supportive care and ensure patient safety. We will ask psychiatry to evaluate and provide medication recommendations. Discussed with the patient sent today; he advises that she has had similar episodes in the past. He reports that she frequently becomes acutely agitated when away from the home but returns to her baseline mental status immediately upon returning to her home environment. Likely her persistent delirium is related to hospital psychosis. (2) Atrial fibrillation Qualifiers: Atrial fibrillation type: paroxysmal Qualified Code(s): I48.0 - Paroxysmal atrial fibrillation Is this a current diagnosis for this admission?: Yes Plan: Return to atrial fibrillation with RVR; heart rate in the 130s-150s. Continue diltiazem drip. As needed IV digoxin for rate control. Continue daily aspirin therapy. Cardiology has been consulted; primary plan per cardiology. Appreciate their evaluation recommendations. (3) Elevated troponin Is this a current diagnosis for this admission?: Yes Plan: Initial troponin <0.012 on admission, peaked at 1.130 on 08/11/2017 and now trending down. This morning troponin was 0.224. Likely secondary to atrial fibrillation with RVR. Due to patient's advanced dementia and current delirium we are unable to assess for cardiac chest pain. However, there are few outward indications of pain (no diaphoresis, nausea, facial grimacing, tachypnea, groaning/chronic). Cardiology has been consulted; appreciate their evaluation and recommendations. Primary plan per cardiology. She has been placed on a transdermal nitroglycerin patch. We will continue daily aspirin. (4) Urinary tract infection Qualifiers: Urinary tract infection type: acute cystitis Is this a current diagnosis for this admission?: Yes Plan: Urinalysis was positive for nitrates and small blood. Urine culture demonstrated pansensitive Klebsiella pneumoniae Encourage p.o. fluids. The patient received IV Rocephin 3 day followed by IV Rocephin. Followed by IV Cipro 1 day and then transitioned to p.o. Cipro for completion of antibiotic course. Day #6 of 7. (5) Hypernatremia Is this a current diagnosis for this admission?: Yes Plan: Reoccurred; likely secondary to dehydration as the patient has decreased p.o. intake while acutely agitated. Resume gentle maintenance IV fluids. Continue to encourage p.o. intake. Monitor daily chemistries. (6) Dementia Is this a current diagnosis for this admission?: Yes Plan: Supportive care; plan as above. We will ask discharge planning to assist with possible long-term placement. The patient's son, Jeet Raya, is the patient's POA. He can be reached at [phone]. Discussed with Mr. Raya today; he is leaning towards long-term care placement. He is uncertain how to make arrangements for the patient to be moved to [place] where he lives. Will ask discharge planning to reach out to him again to discuss options. (7) Hypertension Is this a current diagnosis for this admission?: Yes Plan: Increase lisinopril to 10 mg p.o. daily. IV hydralazine as needed for blood pressure control. Now on diltiazem drip for A. fib. She has been placed on a nitroglycerin patch per cardiology's recommendations for elevated troponin. Cardiology has been consulted; appreciate their evaluation and assistance. (8) GERD (gastroesophageal reflux disease) Is this a current diagnosis for this admission?: Yes Plan: Continue home dose Protonix. (9) Salicylate intoxication Is this a current diagnosis for this admission?: Yes Plan: Resolved. Poison control contacted by previous provider; recommended supportive care and follow-up salicylate level. Fortunately, this is normalized. Did discuss with the patient's significant other; he reports that there is a bottle marked aspirin in the home containing vitamin C tablets as the patient regularly takes "aspirin" for aches and pains and becomes agitated when she is not allowed to do so; he does not believe that she has access to actual aspirin tablets. Recommended that he utilize the time the patient is admitted to search the home for possible hidden pill bottles. Also recommend that the mismarked aspirin bottle be thrown out. - Time Time Spent with patient: 35 or more minutes - Patient face time 50 minutes; greater than 50% spent in counseling and coordination of care. Anticipated discharge: SNF - acute rehab then d/c to home vs [facility] - Inpatient Certification Based on my medical assessment, after consideration of the patient's comorbidities, presenting symptoms, or acuity I expect that the services needed warrant INPATIENT care.: Yes I certify that my determination is in accordance with my understanding of Medicare's requirements for reasonable and necessary INPATIENT services [42 CFR 412.3e].: Yes Medical Necessity: Need Close Monitoring Due to Risk of Patient Decompensation, Need For IV Fluids, Need For Continuous Telemetry Monitoring
--- NOTE | 2017-08-14 20:46 | PROGRESS NOTE E ---
Progress Note NAME: NICK ST : 1935 AGE: 81Y DATE: 08/14/2017 ROOM: 319 SUBJECTIVE: The patient is intermittently very agitated when her heart rate goes up. She continues to be in atrial fibrillation. When she is calm, her heart rate comes down into the 70s to 80s. The patient would not answer any questions and even when she is calm, she keeps her eyes shut and will not answer but she moves all 4 extremities. OBJECTIVE: GENERAL: On examination, the patient appears to be chronically ill and malnourished. At present, she is resting but intermittently, she becomes very agitated and combative. VITAL SIGNS: Her heart rate at present, in spite of her being not agitated, is 126 beats per minute which is atrial fibrillation with a fast medical response. Her blood pressure is 154/96. She is afebrile with a temperature of 97.4 degrees Fahrenheit. Her respirations are 17 per minute and her O2 sats are 100% on room air. HEENT: Head is atraumatic, normocephalic. Eyes: Pupils are equal, round, regular, reactive to light and accommodation. Extraocular movements are normal. There is no conjunctival pallor. ENT is negative. NECK: Supple. There is no JVD. Carotids are equal. There is no bruit. LUNGS: Show diminished air entry, prolonged expiration without any rhonchi, rales or wheezing. HEART: S1 and S2 are heard. S1 is of variable intensity. There is no S3 gallop. There is no S4 gallop. There is a systolic murmur in the left sternal border on the apex. There is no rub. ABDOMEN: Soft, nontender. There is no hepatosplenomegaly. Bowel sounds are well heard. There are no tender areas or masses. EXTREMITIES: Femorals are diminished. Leg pulses diminished. There are no femoral bruits. There is no pedal edema. There is no DVT or cellulitis. There is no calf tenderness. CENTRAL NERVOUS SYSTEM: The patient is conscious. At present, the patient is resting calmly, will not open her eyes. She moves all 4 extremities. PSYCHIATRIC: The patient has intermittent episodes of agitation. DIAGNOSTIC STUDIES: The patient's EKG shows atrial fibrillation with a ventricular response of 112 beats per minute, right bundle branch block pattern. LABORATORY DATA: Her white count is 7600; her hemoglobin is 12.2; hematocrit is 36.1; platelet count is 225,000. The patient's sodium is 146.7, potassium 4.1, chloride is 113; her CO2 is 22; the patient's BUN is 19, creatinine is 0.7; her GFR is greater than 60; her glucose is 99, her calcium is 9.0. Her troponin I has further come down and trended down to 0.224. IMPRESSION: 1. ELEVATED TROPONIN I SECONDARY TO PATIENT'S ATRIAL FIBRILLATION WITH RAPID VENTRICULAR RESPONSE. NO EVIDENCE OF NON-ST ELEVATION AK. The patient is tolerating transdermal nitro 5 mg/24 hours. Continue aspirin. 2. ATRIAL FIBRILLATION WITH EPISODES OF RAPID VENTRICULAR RESPONSE. Continue Cardizem drip at 15 mg/hour. We will add digoxin 0.25 mg p.o. daily. As per the nurse, the patient is taking p.o. 3. BIFASCICULAR BLOCK. AT PRESENT, THE PATIENT ONLY A RIGHT BUNDLE BRANCH BLOCK PATTERN. 4. DEMENTIA WITH BEHAVIORAL DISTURBANCES. 5. URINARY TRACT INFECTION WITH KLEBSIELLA. 6. SALICYLATE INTOXICATION. 7. ACUTE ENCEPHALOPATHY SEEMS TO BE IMPROVING. THIS IS DUE TO SALICYLATE INTOXICATION IN A PATIENT ALREADY WITH DEMENTIA. 8. HYPERTENSION. 9. ARTHRITIS. 10. TOBACCO ABUSE. 11. COPD BY EXAM. RECOMMENDATIONS: 1. As mentioned earlier, she is not a candidate for long-term anticoagulation therapy. 2. Continue aspirin. 3. Continue Cardizem and transition to p.o. Cardizem when the patient's heart rate is much better controlled. 4. We will start the patient on digoxin 0.25 mg p.o. daily. 5. Continue antibiotics. CODE STATUS: The is trying to talk to the son to see whether they want to change the patient's status to DNR. TIME SPENT: Her medications were reviewed. Forty minutes spent on this patient with more than 50% of the time spent on direct patient care. We will follow with you. Medical decision making is moderate to high complexity. DICTATING PHYSICIAN: JACKY FRANKEL M.D. [id number] PHY#: [id number] ID: [id number] JOB#: [id number] ACCT: [id number] cc: >
[2017-08-14] MEDS: HYDRALAZINE HCL INJ/PF 20 MG/1 ML SDV IV PRN (20:50)
[2017-08-14] MEDS ORDERED: DILTIAZEM HCL/D5W 125 MG/125 ML RTUINJ IV ONE (22:35)
[2017-08-14] MEDS: NORMAL SALINE 1000 ML 1,000 ML IV PRN (23:18)
[2017-08-14] MEDS: METOPROLOL TARTRATE PF/INJ 5 MG/5 ML SDV IV PRN (23:32)
--- NOTE | 2017-08-15 05:14 | EKG REPORT ---
SEVERITY:- ABNORMAL ECG - SINUS RHYTHM ATRIAL PREMATURE COMPLEX RBBB AND LAFB : Confirmed by: Broderick Boss MD 15-Aug-2017 05:13:42
[2017-08-15 05:48] LABS: ANION GAP 9 (5-19); BLOOD UREA NITROGEN 21 mg/dL (7-20); CALCIUM 8.9 mg/dL (8.4-10.2); CARBON DIOXIDE 24 mmol/L (22-30); CHLORIDE 114 mmol/L (98-107); GLUCOSE 106 mg/dL (75-110); POTASSIUM 4.3 mmol/L (3.6-5.0); SODIUM 146.9 mmol/L (137-145)
[2017-08-15] MEDS: DIVALPROEX SODIUM 250 MG TABLET.DR PO SCH ×3 (06:18→21:31)
[2017-08-15] MEDS: LANSOPRAZOLE 30 MG TAB.RAP.DR PO SCH (06:18)
[2017-08-15] MEDS: HEPARIN SOD (PORCINE) 5,000 UNIT/ML 1 ML SYRINGE SUBCUT SCH ×3 (06:19→21:36)
[2017-08-15] MEDS: HYDRALAZINE HCL INJ/PF 20 MG/1 ML SDV IV PRN (07:49)
[2017-08-15] MEDS: NICOTINE 14 MG/24 HR PATCH.TD24 TD SCH (09:22)
[2017-08-15] MEDS: NITROGLYCERIN 5 MG (0.2 MG/HR) PATCH.TD24 TD SCH (09:23)
[2017-08-15] MEDS: BUSPIRONE HCL 10 MG TABLET PO SCH ×2 (09:24→21:31)
[2017-08-15] MEDS: CIPROFLOXACIN HCL 500 MG TABLET PO SCH ×2 (09:24→21:31)
[2017-08-15] MEDS: ASPIRIN 81 MG TABLET, CHEWABLE PO SCH (09:24)
[2017-08-15] MEDS: DIGOXIN 0.125 MG TABLET PO SCH (09:24)
[2017-08-15] MEDS: DOCUSATE SODIUM 100 MG CAPSULE PO SCH ×2 (09:24→19:08)
[2017-08-15] MEDS: NORMAL SALINE 1000 ML 1,000 ML IV PRN (09:26)
[2017-08-15] MEDS ORDERED: AMIODARONE HCL 200 MG TABLET PO ONE (12:30)
--- NOTE | 2017-08-15 14:34 | PDOC PROGRESS REPORT ---
Subjective Progress Note for:: 08/15/17 Subjective:: The patient is a 81-year-old female with a past medical history significant for hypertension, breast cancer, arthritis, dementia and tobacco dependency with continuous use who was admitted on 08/08/17 for generalized weakness and worsening mental status. The patient is seen on morning rounds, unfortunately, no family members are present at this time. She is found resting in bed comfortably on room air. She is awake and talking to herself about her children, but again will not open her eyes, follow commands, or answer questions today. Per nursing, she was awake and talking with staff earlier today. She does remain and soft point restraints secondary to continued attempts to remove her IV, and hit or kick at staff members. No new concerns per nursing. Reason For Visit: ACUTE ENCEPHALOPATHY, HYPERNATREMIA, Physical Exam Vital Signs: Temp Pulse Resp BP Pulse Ox 97.5 F 78 20 142/78 H 99 08/15/17 07:36 08/15/17 09:00 08/15/17 07:36 08/15/17 09:00 08/15/17 07:36 Intake & Output 08/14/17 08/15/17 08/16/17 06:59 06:59 06:59 Intake Total 609 2005 0 Output Total 100 Balance 609 1905 0 Weight 52.9 kg 57.7 kg General appearance: PRESENT: no acute distress, thin, well-developed, well- nourished. ABSENT: cooperative Head exam: PRESENT: atraumatic, normocephalic Eye exam: PRESENT: conjunctiva pink, EOMI, PERRLA. ABSENT: scleral icterus Ear exam: PRESENT: normal external ear exam Mouth exam: PRESENT: moist, tongue midline Neck exam: ABSENT: carotid bruit, JVD, lymphadenopathy, thyromegaly Respiratory exam: PRESENT: clear to auscultation kirt, symmetrical, unlabored. ABSENT: rales, rhonchi, wheezes Cardiovascular exam: PRESENT: RRR, +S1, +S2. ABSENT: diastolic murmur, rubs, systolic murmur Pulses: PRESENT: normal dorsalis pedis pul Vascular exam: PRESENT: normal capillary refill GI/Abdominal exam: PRESENT: normal bowel sounds, soft. ABSENT: distended, guarding, mass, organolmegaly, rebound, tenderness Rectal exam: PRESENT: deferred Extremities exam: PRESENT: full ROM. ABSENT: calf tenderness, clubbing, pedal edema Neurological exam: PRESENT: alert, awake, oriented to person, CN II-XII grossly intact. ABSENT: oriented to place, oriented to time, oriented to situation, motor sensory deficit Psychiatric exam: PRESENT: agitated, appropriate affect. ABSENT: homicidal ideation, suicidal ideation Skin exam: PRESENT: dry, intact, warm, other - Scattered ecchymosis bilateral upper extremities. ABSENT: cyanosis, rash Results Laboratory Results: 08/14/17 04:46 08/15/17 04:50 08/15/17 04:50 Sodium 146.9 H Potassium 4.3 Chloride 114 H Carbon Dioxide 24 Anion Gap 9 BUN 21 H Creatinine 0.64 Est GFR ( Amer) > 60 Est GFR (Non-Af Amer) > 60 Glucose 106 Calcium 8.9 08/11/17 08/11/17 08/11/17 06:56 06:56 13:35 Creatine Kinase 241 H CK-MB (CK-2) 3.54 Troponin I 0.148 Cancelled 08/11/17 08/11/17 08/13/17 14:41 19:10 12:55 Creatine Kinase CK-MB (CK-2) Troponin I 0.704 1.130 0.386 08/14/17 08/14/17 04:46 04:46 Creatine Kinase 213 H CK-MB (CK-2) Troponin I 0.224 Impressions: Head CT 08/08/17 17:54 IMPRESSION: CHRONIC MICROVASCULAR ISCHEMIA. NO ACUTE IMAGING FINDINGS IN THE BRAIN. EVIDENCE OF ACUTE STROKE: NO. Head MRI 08/08/17 19:17 IMPRESSION: No acute changes. Moderate diffuse small vessel ischemic change throughout the hemispheric white matter. EVIDENCE OF ACUTE STROKE: NO. Assessment & Plan - Diagnosis (1) Acute encephalopathy Is this a current diagnosis for this admission?: Yes Plan: Stable; continues to require soft limb restraints and as needed Ativan (1 in the last 24 hours). Multifactorial secondary to advanced dementia, urinary tract infection, dehydration (evidenced by hypernatremia), salicylate overdose ( resolved), and probable hospital psychosis. Head CT is benign. Follow-up brain MRI demonstrated chronic microvascular changes only; no evidence of acute stroke. LFTs are reassuring; ammonia earlier this week was normal. WBCs are normal, patient is afebrile, unlikely to have additional infectious process (other than established urinary tract infection). Continue as needed IV Ativan; dose weaned yesterday. Continue Depakote to three times daily for agitation/aggression. Continue BuSpar 5 mg every morning and 10 mg nightly. Encourage p.o. fluids. Antibiotics for urinary tract infection. Early removal of restraints when safe for patient. Provide for supportive care and ensure patient safety. We will ask psychiatry to evaluate and provide medication recommendations. (2) Atrial fibrillation Qualifiers: Atrial fibrillation type: paroxysmal Qualified Code(s): I48.0 - Paroxysmal atrial fibrillation Is this a current diagnosis for this admission?: Yes Plan: Resolved, now in normal sinus rhythm with heart rate in the mid 80s. Primary plan per cardiology; appreciate their evaluation and recommendations. Placed on p.o. amiodarone and digoxin by cardiology. Continue daily aspirin therapy. Not a candidate for chronic anticoagulation. (3) Elevated troponin Is this a current diagnosis for this admission?: Yes Plan: Initial troponin <0.012 on admission, peaked at 1.130 on 08/11/2017 and now trending down. Likely secondary to atrial fibrillation with RVR. Due to patient's advanced dementia and current delirium we are unable to assess for cardiac chest pain. However, there are few outward indications of pain (no diaphoresis, nausea, facial grimacing, tachypnea, groaning/chronic). Cardiology has been consulted; appreciate their evaluation and recommendations. Primary plan per cardiology. She has been placed on a transdermal nitroglycerin patch. We will continue daily aspirin. (4) Urinary tract infection Qualifiers: Urinary tract infection type: acute cystitis Is this a current diagnosis for this admission?: Yes Plan: Urinalysis was positive for nitrates and small blood. Urine culture demonstrated pansensitive Klebsiella pneumoniae Encourage p.o. fluids. The patient received IV Rocephin 3 day followed by IV Rocephin. Followed by IV Cipro 1 day and then transitioned to p.o. Cipro for completion of antibiotic course. Day #7 of 7. We will plan on repeating urinalysis tomorrow to confirm resolution of urinary tract infection. (5) Hypernatremia Is this a current diagnosis for this admission?: Yes Plan: Stable; sodium 146.9 today. Likely secondary to dehydration as the patient has decreased p.o. intake while acutely agitated. Resume gentle maintenance IV fluids. Continue to encourage p.o. intake. Monitor daily chemistries. (6) Dementia Is this a current diagnosis for this admission?: Yes Plan: Supportive care; plan as above. We will ask discharge planning to assist with possible long-term placement. The patient's son, Jeet Raya, is the patient's POA. He can be reached at . Discussed with Mr. Raya today; he is leaning towards long-term care placement. He is uncertain how to make arrangements for the patient to be moved to [place] where he lives. Will ask discharge planning to reach out to him again to discuss options. (7) Hypertension Is this a current diagnosis for this admission?: Yes Plan: Continue lisinopril to 10 mg p.o. daily. IV hydralazine as needed for blood pressure control. Daily nitroglycerin patch. Cardiology has been consulted; appreciate their evaluation and assistance. (8) GERD (gastroesophageal reflux disease) Is this a current diagnosis for this admission?: Yes Plan: Continue home dose Protonix. (9) Salicylate intoxication Is this a current diagnosis for this admission?: Yes Plan: Resolved. Poison control contacted by previous provider; recommended supportive care and follow-up salicylate level. Fortunately, this is normalized. Did discuss with the patient's significant other; he reports that there is a bottle marked aspirin in the home containing vitamin C tablets as the patient regularly takes "aspirin" for aches and pains and becomes agitated when she is not allowed to do so; he does not believe that she has access to actual aspirin tablets. Recommended that he utilize the time the patient is admitted to search the home for possible hidden pill bottles. Also recommend that the mismarked aspirin bottle be thrown out. - Time Time Spent with patient: 15-24 minutes Medications reviewed and adjusted accordingly: Yes Anticipated discharge: SNF - LTC Within: within 48 hours
--- NOTE | 2017-08-15 16:25 | PSYCHOLOGICAL NOTE ---
Psych Note - Psych Note Psych Note: Reason for Consult: medication recommendations The patient is a 81-year-old female with a past medical history significant for hypertension, breast cancer, arthritis, dementia and tobacco dependency with continuous use who was admitted on 08/08/17 for generalized weakness and worsening mental status. Chart review conducted: Patient has a formal diagnosis of dementia with MRI imagery. There has been concern the patient has increased agitation. Medication recommendations per [facility]'s contracted psychiatrist Dr. Albaro COLEMAN are as follows: 1. Please discontinue Ativan 2. Please increase Depakote's third dose to 500 mg 3. Please add clonidine 0.2 mg 24-hour transdermal patch 4. Please add risperidone 0.25 mg every 12 hours as needed Impression\plan: Patient is cleared from acute psychiatric services. Patient has a formal diagnosis of dementia. Medication recommendations were requested for behavioral concerns and have been provided. Thank you for this consult; please re-consult of new concerns present. Dr. Sarah was consulted and the care management of this patient; attending physician is agreement with recommendations and disposition
[2017-08-15] MEDS: METOPROLOL TARTRATE PF/INJ 5 MG/5 ML SDV IV PRN (19:07)
[2017-08-15] MEDS: LISINOPRIL 10 MG TABLET PO SCH (19:07)
[2017-08-15 20:11] LABS: CREATINE KINASE MB 1.74 ng/mL (<4.55)
--- NOTE | 2017-08-15 20:21 | EKG REPORT ---
SEVERITY:- ABNORMAL ECG - SINUS TACHYCARDIA RIGHT BUNDLE BRANCH BLOCK : Confirmed by: Monica Lomeli MD 15-Aug-2017 20:20:41
[2017-08-15 20:22] LABS: TROPONIN I 0.133 ng/mL
--- NOTE | 2017-08-15 20:22 | EKG REPORT ---
SEVERITY:- ABNORMAL ECG - INCOMPLETE ANALYSIS DUE TO MISSING DATA IN PRECORDIAL LEAD(S) ATRIAL FIBRILLATION RBBB AND LAFB : Confirmed by: Monica Lomeli MD 15-Aug-2017 20:20:37
[2017-08-15] MEDS ORDERED: AMIODARONE HCL 200 MG TABLET PO SCH (22:00)
[2017-08-16] MEDS: NORMAL SALINE 1000 ML 1,000 ML IV PRN ×3 (02:47→23:00)
[2017-08-16] MEDS: HEPARIN SOD (PORCINE) 5,000 UNIT/ML 1 ML SYRINGE SUBCUT SCH ×3 (05:25→21:37)
[2017-08-16] MEDS: DIVALPROEX SODIUM 250 MG TABLET.DR PO SCH (05:25)
[2017-08-16] MEDS: LANSOPRAZOLE 30 MG TAB.RAP.DR PO SCH (05:25)
[2017-08-16] MEDS: METOPROLOL TARTRATE PF/INJ 5 MG/5 ML SDV IV PRN ×2 (06:33→16:07)
--- NOTE | 2017-08-16 07:30 | PROGRESS NOTE E ---
Progress Note NAME: NICK ST : 1935 AGE: 81Y DATE: 08/15/2017 ROOM: 319 SUBJECTIVE: The patient is still very confused and agitated. She did return to sinus rhythm, and hence her Cardizem was stopped and the patient was put on amiodarone. The patient denies any chest pain or discomfort, but history from her is very unreliable. There was no ventricular arrhythmia seen. OBJECTIVE: GENERAL: The patient appears to be chronically ill and malnourished. VITAL SIGNS: She is afebrile with a temperature of 97.5 degrees Fahrenheit, pulse 91 beats per minute, at present seems to be sinus rhythm. Blood pressure 188/89, respirations 20 per minute. O2 sats are 99% on room air. HEENT: Head is atraumatic/normocephalic. Eyes: Pupils are equal, round, regular, reactive to light and accommodation. Extraocular movements are normal. There is no conjunctival pallor. There is no scleral icterus. ENT is negative. NECK: Supple. There is no JVD. Carotids are equal. There is no bruit. LUNGS: Diminished air entry, prolonged expiration without any rhonchi, rales, or wheezing. HEART: S1, S2 is heard. S1 is of normal intensity. There is no S3 gallop. There is no S4 gallop. There is a systolic murmur in the left sternal border in the apex. There is no rub. ABDOMEN: Soft, nontender. There is no hepatosplenomegaly. Bowel sounds are well heard. There are no tender areas or masses. EXTREMITIES: Femorals are diminished. Leg pulses diminished. There are no femoral bruits. There is no pedal edema. There is no DVT or cellulitis. There is no calf tenderness. 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 PSYCHIATRIC: The patient has intermittent episodes of agitation. The patient's EKG shows sinus tachycardia, right bundle branch block pattern. The patient's sodium is 146.9, potassium 4.3, chloride 114, BUN 21, creatinine 0.64. GFR is greater than 60. Glucose 106, calcium 8.9. Troponin-I has further come down to 0.133. CPK and CPK/MB are negative. ASSESSMENT: 1. ELEVATED TROPONIN-I secondary to atrial fibrillation with rapid ventricular response. No evidence of non-ST elevation myocardial infarction. Patient without chest pain. Confusion. In view of the unreliable history, the patient is on Transderm nitropatch. 2. ATRIAL FIBRILLATION. Converted to sinus rhythm. Will stop the patient's Cardizem and start her on amiodarone to keep the rhythm. At present, patient with sinus tachycardia with right bundle branch block pattern. 3. DEMENTIA with behavioral disturbances. 4. URINARY TRACT INFECTION with Klebsiella. 5. *------* on admission. Should have resolved by now, but mental status is not improving. 6. ACUTE ENCEPHALOPATHY. Patient with agitation. 7. HYPERTENSION. Not well controlled. 8. ARTHRITIS. 9. TOBACCO ABUSE. 10. *------* As mentioned earlier, she is not a candidate for long-term anticoagulation. Will continue the patient on amiodarone. Continue Transderm nitropatch. Continue antibiotics. Note the patient's son is supposed to be visiting up from [place]. He is the surrogate healthcare decision maker. I have spoken with the common-law of the patient. Will follow with you. Medications have been reviewed. Medications have been adjusted. Medical decision making is of high complexity. 40 minutes spent on this patient. More than 50% of the time spent in direct patient care. Will follow with you. DICTATING PHYSICIAN: JACKY FRANKEL M.D. [id number] ELIAZAR#: [id number] ID: [id number] JOB#: [id number] ACCT: [id number] cc: >
[2017-08-16] MEDS ORDERED: RISPERIDONE 0.25 MG TABLET PO PRN (08:02)
[2017-08-16] MEDS: BUSPIRONE HCL 10 MG TABLET PO SCH ×2 (08:32→21:31)
[2017-08-16] MEDS ORDERED: MORPHINE SULFATE 10 MG/ML INJ IV PRN (10:03)
[2017-08-16] MEDS ORDERED: NORMAL SALINE 1000 ML 1,000 ML IV PRN (10:13)
[2017-08-16] MEDS: NICOTINE 14 MG/24 HR PATCH.TD24 TD SCH (10:29)
[2017-08-16] MEDS: NITROGLYCERIN 5 MG (0.2 MG/HR) PATCH.TD24 TD SCH (10:29)
[2017-08-16] MEDS: CIPROFLOXACIN HCL 500 MG TABLET PO SCH ×2 (10:30→21:31)
[2017-08-16] MEDS: DOCUSATE SODIUM 100 MG CAPSULE PO SCH ×2 (10:30→18:04)
[2017-08-16] MEDS: ASPIRIN 81 MG TABLET, CHEWABLE PO SCH (10:30)
[2017-08-16] MEDS: DIGOXIN 0.125 MG TABLET PO SCH (10:31)
[2017-08-16 11:38] LABS: ANION GAP 9 (5-19); BLOOD UREA NITROGEN 24 mg/dL (7-20); CALCIUM 8.7 mg/dL (8.4-10.2); CARBON DIOXIDE 24 mmol/L (22-30); CHLORIDE 116 mmol/L (98-107); GLUCOSE 112 mg/dL (75-110); POTASSIUM 4.3 mmol/L (3.6-5.0); SODIUM 148.9 mmol/L (137-145)
[2017-08-16] MEDS: DILTIAZEM HCL/D5W 125 MG/125 ML RTUINJ IV PRN ×2 (11:45→18:16)
[2017-08-16] MEDS ORDERED: DIVALPROEX SODIUM 250 MG TABLET.DR PO SCH ×2 (14:00→22:00)
[2017-08-16] MEDS ORDERED: CLONIDINE 0.2 MG/24 HR PATCH.TDWK TD SCH (14:00)
--- NOTE | 2017-08-16 17:17 | PDOC PROGRESS REPORT ---
Subjective Progress Note for:: 08/16/17 Subjective:: The patient is a 81-year-old female with a past medical history significant for hypertension, breast cancer, arthritis, dementia and tobacco dependency with continuous use who was admitted on 08/08/17 for generalized weakness and worsening mental status. The patient is seen on morning rounds, unfortunately, no family members are present at this time. She is found resting in bed on room air, but is very agitated and yelling out today. Overnight, the patient converted back into atrial fibrillation with RVR; current heart rate in the 130s. Discussed with discharge planning; the patient's son/POA is driving up from [place] and will arrived late today. Goal is for patient to be discharged directly to SNF, however, as the patient remains agitated, combative, and restraints we will have difficulty finding placement. Additionally, her heart rhythm remains irregular and therefore will need to stay further for additional medication adjustments. Reviewed note from psychiatry; have increased Depakote and added Risperdal per their recommendations. Will check with cardiology prior to initiating clonidine. Have discontinued Ativan, however, patient remains very agitated and combative. Geodon and Haldol use are limited secondary to prolonged QTC and current amiodarone use. Although, the patient does not complain of pain, it is possible that the agitation is reflective of chest pain or discomfort related to her atrial fibrillation with RVR and elevated troponins. Therefore, will trial IV morphine. Nursing is updated on the plan of care. Reason For Visit: ACUTE ENCEPHALOPATHY, HYPERNATREMIA, Physical Exam Vital Signs: Temp Pulse Resp BP Pulse Ox 97.6 F 82 18 149/98 H 96 08/16/17 07:31 08/16/17 07:31 08/16/17 07:31 08/16/17 07:31 08/16/17 07:31 Intake & Output 08/15/17 08/16/17 08/17/17 06:59 06:59 06:59 Intake Total 2004 1994 Output Total 100 50 Balance 1904 1944 Weight 57.7 kg 59.2 kg General appearance: PRESENT: no acute distress, thin, well-developed, well- nourished. ABSENT: cooperative Head exam: PRESENT: atraumatic, normocephalic Eye exam: PRESENT: conjunctiva pink, EOMI, PERRLA. ABSENT: scleral icterus Ear exam: PRESENT: normal external ear exam Mouth exam: PRESENT: dry mucosa, tongue midline Neck exam: ABSENT: carotid bruit, JVD, lymphadenopathy, thyromegaly Respiratory exam: PRESENT: clear to auscultation kirt, symmetrical, unlabored. ABSENT: rales, rhonchi, wheezes Cardiovascular exam: PRESENT: irregular rhythm, +S1, +S2, tachycardia. ABSENT: diastolic murmur, rubs, systolic murmur Pulses: PRESENT: normal dorsalis pedis pul Vascular exam: PRESENT: normal capillary refill GI/Abdominal exam: PRESENT: normal bowel sounds, soft. ABSENT: distended, guarding, mass, organolmegaly, rebound, tenderness Rectal exam: PRESENT: deferred Extremities exam: PRESENT: full ROM. ABSENT: calf tenderness, clubbing, pedal edema Neurological exam: PRESENT: alert, awake, CN II-XII grossly intact. ABSENT: oriented to person, oriented to place, oriented to time, oriented to situation, motor sensory deficit Psychiatric exam: PRESENT: agitated - Combative. ABSENT: homicidal ideation, suicidal ideation Skin exam: PRESENT: dry, intact, warm, other - Scattered ecchymosis. ABSENT: cyanosis, rash Results Laboratory Results: 08/14/17 04:46 08/15/17 04:50 08/11/17 08/11/17 08/11/17 06:56 06:56 13:35 Creatine Kinase 241 H CK-MB (CK-2) 3.54 Troponin I 0.148 Cancelled 08/11/17 08/11/17 08/13/17 14:41 19:10 12:55 Creatine Kinase CK-MB (CK-2) Troponin I 0.704 1.130 0.386 08/14/17 08/14/17 08/15/17 04:46 04:46 19:35 Creatine Kinase 213 H 119 CK-MB (CK-2) Troponin I 0.224 08/15/17 19:35 Creatine Kinase CK-MB (CK-2) 1.74 Troponin I 0.133 Impressions: Head CT 08/08/17 17:54 IMPRESSION: CHRONIC MICROVASCULAR ISCHEMIA. NO ACUTE IMAGING FINDINGS IN THE BRAIN. EVIDENCE OF ACUTE STROKE: NO. Head MRI 08/08/17 19:17 IMPRESSION: No acute changes. Moderate diffuse small vessel ischemic change throughout the hemispheric white matter. EVIDENCE OF ACUTE STROKE: NO. Assessment & Plan - Diagnosis (1) Acute encephalopathy Is this a current diagnosis for this admission?: Yes Plan: Stable; continues to require soft limb restraints and as needed Ativan (1 in the last 24 hours). Multifactorial secondary to advanced dementia, urinary tract infection, dehydration (evidenced by hypernatremia), salicylate overdose ( resolved), and probable hospital psychosis. Head CT is benign. Follow-up brain MRI demonstrated chronic microvascular changes only; no evidence of acute stroke. LFTs are reassuring; ammonia earlier this week was normal. WBCs are normal, patient is afebrile, unlikely to have additional infectious process (other than established urinary tract infection). Psychiatric evaluation was completed; her recommendations have been implemented. Continue Depakote to 250 mg every morning and afternoon and 250 mg in the evening. Continue BuSpar 5 mg every morning and 10 mg nightly. Begin Risperdal 0.25 mg twice daily. Clonidine 0.2 mg Transdermal patch. Encourage p.o. fluids. Antibiotics for urinary tract infection. Early removal of restraints when safe for patient. Provide for supportive care and ensure patient safety. We will ask psychiatry to evaluate and provide medication recommendations. (2) Atrial fibrillation Qualifiers: Atrial fibrillation type: paroxysmal Qualified Code(s): I48.0 - Paroxysmal atrial fibrillation Is this a current diagnosis for this admission?: Yes Plan: Recurrent; the patient has twice converted to normal sinus rhythm and subsequently returned to atrial fibrillation with RVR. This morning she is in atrial fibrillation with a heart rate in the 130s. Cardiology has been made aware. Primary plan per cardiology; appreciate their evaluation and recommendations. Resumed diltiazem drip. Continue p.o. digoxin. Continue daily aspirin therapy. Not a candidate for chronic anticoagulation. (3) Elevated troponin Is this a current diagnosis for this admission?: Yes Plan: Initial troponin <0.012 on admission, peaked at 1.130 on 08/11/2017 and continues to trend down. Likely secondary to atrial fibrillation with RVR. Due to patient's advanced dementia and current delirium we are unable to assess for cardiac chest pain. However, there are few outward indications of pain (no diaphoresis, nausea, facial grimacing, tachypnea, groaning/chronic). Cardiology has been consulted; appreciate their evaluation and recommendations. Primary plan per cardiology. She has been placed on a transdermal nitroglycerin patch. We will trial IV morphine 1; perhaps the patient's encephalopathy, anxiety/ agitation is related to pain. We will continue daily aspirin. (4) Urinary tract infection Qualifiers: Urinary tract infection type: acute cystitis Is this a current diagnosis for this admission?: Yes Plan: Urinalysis was positive for nitrates and small blood. Urine culture demonstrated pansensitive Klebsiella pneumoniae Encourage p.o. fluids. The patient has completed a seven-day course of antibiotics. Repeat urinalysis to verify resolution of UTI is pending. (5) Hypernatremia Is this a current diagnosis for this admission?: Yes Plan: Trending up (144.3--> 146.7--> 146.9--> 148.9). Likely secondary to dehydration as the patient has decreased p.o. intake while acutely agitated. We will increase IVF rate. Continue to encourage p.o. intake. Monitor daily chemistries. (6) Dementia Is this a current diagnosis for this admission?: Yes Plan: Unchanged; continues to have dementia with delirium and behavioral disturbances. Supportive care; plan as above. We will ask discharge planning to assist with possible long-term placement. The patient's son, Jeet Raya, is the patient's POA. He can be reached at . (7) Hypertension Is this a current diagnosis for this admission?: Yes Plan: Blood pressures remain elevated; 142/84 today Continue lisinopril to 10 mg p.o. daily. IV hydralazine as needed for blood pressure control. Daily nitroglycerin patch. Daily clonidine patch. Resumed diltiazem drip per cardiology. Cardiology has been consulted; appreciate their evaluation and assistance. (8) GERD (gastroesophageal reflux disease) Is this a current diagnosis for this admission?: Yes Plan: Continue home dose Protonix. (9) Salicylate intoxication Is this a current diagnosis for this admission?: Yes Plan: Resolved. - Time Time Spent with patient: 25-34 minutes Medications reviewed and adjusted accordingly: Yes Anticipated discharge: SNF
--- NOTE | 2017-08-16 17:50 | PROGRESS NOTE E ---
Progress Note NAME: NICK ST : 1935 AGE: 81Y DATE: 08/16/2017 ROOM: 319 SUBJECTIVE: Note that the patient although she is quiet and resting has gone back into atrial fibrillation with rapid ventricular response. She denies any chest pain or discomfort, but the patient is confused. The patient moves all 4 extremities, hence, there is no CVA. OBJECTIVE: GENERAL: On examination the patient appears to be chronically ill and malnourished and older than her stated age. VITAL SIGNS: She is afebrile with a temperature of 97.6 degrees Fahrenheit, pulse is 129 beats per minute, blood pressure is 149/98, respirations are 18 per minute, O2 saturations are 96% on room air. HEENT: Head is atraumatic, normocephalic. Eyes: Pupils are equal, round and regular, reactive to light and accommodation. Extraocular movements are normal. There is no conjunctival pallor. There is no scleral icterus. ENT is negative. NECK: Supple. There is no JVD. Carotids are equal. There is no bruit. LUNGS: Diminished air entry, prolonged expiration without any rhonchi, rales, or wheezing. HEART: S1, S2 is heard. S1 is of variable intensity. There is no S3 gallop. There is no S4 gallop. There is a systolic murmur in the left sternal border and the apex. There is no rub. ABDOMEN: Soft, nontender. There is no hepatosplenomegaly. Bowel sounds are well heard. EXTREMITIES: Femorals are diminished. There are no femoral bruits. Leg pulses are diminished. There is no pedal edema. There is no DVT or cellulitis. There is no calf tenderness. CENTRAL NERVOUS SYSTEM: The patient is conscious, awake, alert but very confused and intermittently is asleep. She moves all 4 extremities. PSYCHIATRIC: Intermittent episodes of agitation. She has a psychosocial evaluation yesterday and medication changes have been noted. DIAGNOSTICS: The patient's sodium is 148.9, potassium 4.3, chloride 116, CO2 is 24. The patient's BUN is 24, creatinine is 0.73, GFR is greater than 60, glucose is 112, calcium is 8.7. IMPRESSION: 1. ELEVATED TROPONIN I SECONDARY TO ATRIAL FIBRILLATION WITH RAPID VENTRICULAR RESPONSE, NO EVIDENCE OF NON-ST ELEVATION NE. But, since we cannot get a history from the patient to be sure I have added nitrates which she is tolerating. 2. ATRIAL FIBRILLATION WITH RAPID VENTRICULAR RESPONSE. The patient's amiodarone has been stopped and the patient has been placed back on Cardizem 15 mg per hour infusion. We will continue the patient's digoxin. Also we will check a digoxin level in the a.m. 3. DEMENTIA WITH BEHAVIOR DISTURBANCES. 4. URINARY TRACT INFECTION WITH KLEBSIELLA. 5. SALICYLATE INTOXICATION ON ADMISSION. Should have resolved by now but the mental status is not improving. 6. ACUTE ENCEPHALOPATHY. PATIENT WITH AGITATION. 7. HYPERTENSION, NOT WELL-CONTROLLED. 8. DEMENTIA, SEVERE. 9. ARTHRITIS. 10. TOBACCO ABUSE. RECOMMENDATIONS: As mentioned earlier she is not a long-term candidate for anticoagulation. We will continue the patient now on a Cardizem drip. We will stop the patient's amiodarone. Medications have been reviewed, medications adjusted. TIME SPENT: Note 40 minutes spent on the patient with more than 50% of the time spent on direct patient care. Discussed with the other caregiving providers on the case, apparently the son will be coming here today or tomorrow to visit the patient and he will talk to the hospitalist about the patient's code status as the son has the healthcare power of perishable fruit inspector for the patient, but the patient is a full code. DICTATING PHYSICIAN: JACKY FRANKEL M.D. [id number] ELIAZAR#: [id number] ID: [id number] JOB#: [id number] ACCT: [id number] cc: >
[2017-08-16] MEDS: LISINOPRIL 10 MG TABLET PO SCH (18:04)
[2017-08-17] MEDS: DILTIAZEM HCL/D5W 125 MG/125 ML RTUINJ IV PRN ×2 (05:58→15:49)
[2017-08-17] MEDS: NORMAL SALINE 1000 ML 1,000 ML IV PRN (05:59)
[2017-08-17] MEDS: HEPARIN SOD (PORCINE) 5,000 UNIT/ML 1 ML SYRINGE SUBCUT SCH ×2 (06:04→13:15)
[2017-08-17] MEDS: LANSOPRAZOLE 30 MG TAB.RAP.DR PO SCH (06:07)
[2017-08-17 06:17] LABS: ALANINE AMINOTRANSFERASE 57 U/L (9-52); ALKALINE PHOSPHATASE 136 U/L (38-126); ANION GAP 10 (5-19); ASPARTATE AMINO TRANSFERASE 40 U/L (14-36); BILIRUBIN,DIRECT 0.4 mg/dL (0.0-0.4); BILIRUBIN,TOTAL 0.6 mg/dL (0.2-1.3); BLOOD UREA NITROGEN 23 mg/dL (7-20); CALCIUM 8.5 mg/dL (8.4-10.2); CARBON DIOXIDE 21 mmol/L (22-30); CHLORIDE 119 mmol/L (98-107); GLUCOSE 102 mg/dL (75-110); POTASSIUM 3.7 mmol/L (3.6-5.0); SODIUM 150.1 mmol/L (137-145); TOTAL PROTEIN 5.2 g/dL (6.3-8.2)
[2017-08-17] MEDS ORDERED: 1/2 NORMAL SALINE 1,000 ML IV PRN (07:45)
[2017-08-17] MEDS: BUSPIRONE HCL 10 MG TABLET PO SCH (08:16)
[2017-08-17] MEDS: NITROGLYCERIN 5 MG (0.2 MG/HR) PATCH.TD24 TD SCH (10:36)
[2017-08-17] MEDS: NICOTINE 14 MG/24 HR PATCH.TD24 TD SCH (10:37)
[2017-08-17] MEDS: DIGOXIN 0.125 MG TABLET PO SCH (10:40)
[2017-08-17] MEDS: CIPROFLOXACIN HCL 500 MG TABLET PO SCH (10:40)
[2017-08-17] MEDS: DOCUSATE SODIUM 100 MG CAPSULE PO SCH ×2 (10:40→17:15)
[2017-08-17] MEDS: ASPIRIN 81 MG TABLET, CHEWABLE PO SCH (10:40)
[2017-08-17] MEDS ORDERED: DIVALPROEX SODIUM 250 MG TABLET.DR PO SCH (14:00)
[2017-08-17 14:59] LABS: ANION GAP 13 (5-19); BLOOD UREA NITROGEN 21 mg/dL (7-20); CALCIUM 8.9 mg/dL (8.4-10.2); CARBON DIOXIDE 21 mmol/L (22-30); CHLORIDE 114 mmol/L (98-107); GLUCOSE 124 mg/dL (75-110); POTASSIUM 3.8 mmol/L (3.6-5.0); SODIUM 148.1 mmol/L (137-145)
--- NOTE | 2017-08-17 16:33 | PDOC TRANSFER SUMMARY ---
General Admission Date/PCP: 08/08/17 22:56 BJ REESE MD Resuscitation Status: Full Code - Transfer Diagnosis (1) Atrial fibrillation with RVR Is this a current diagnosis for this admission?: Yes Diagnosis Summary: Persistent and recurring; the patient has twice converted into a normal sinus rhythm and subsequently returned to atrial fibrillation with RVR. Overnight 08/10-08/11 (Progress Day 2), the patient was noted to have increased agitation overnight with concurrent change from normal sinus rhythm to A. fib with RVR and heart rate in the 140s. She was placed on a diltiazem drip with rate control achieved the following day. Cardiology was consulted and transitioned the patient to p.o. diltiazem and digoxin. Unfortunately, the following day the patient had return to atrial fibrillation with RVR and subsequently the diltiazem drip was resumed. Again, rate control was achieved and cardiology transitioned to amiodarone with continued digoxin. Overnight, the patient converted back into atrial fibrillation with RVR. Amiodarone was discontinued and diltiazem drip resumed. Of note, nursing has had difficulty with titration. Next dosing is required in order to maintain rate control, but within 1-2 hours, she suddenly developed bradycardia with a rate in the 40s. Decreased diltiazem rate subsequently results and return of RVR. (2) Acute encephalopathy Is this a current diagnosis for this admission?: Yes Diagnosis Summary: Persistent. She presented to the emergency department with a complaint of generalized weakness and increased confusion. In the emergency department patient came agitated and combative requiring IV Ativan, IV Haldol, and IM Geodon. The following morning, upon waking the patient again became combative with nursing staff and removed multiple IVs requiring soft limb restraints which she has remained in for the previous 9 days despite trial of multiple as needed medications and escalating scheduled medications. Psychiatry was consulted and their recommendations have been implemented. Currently the patient is on Depakote 250 mg every morning and afternoon and 500 mg in the evening, scheduled BuSpar 5 mg every morning and 10 mg nightly, clonidine 0.2 mg transdermal patch, with Risperdal 0.25 mg p.o. twice daily as needed for acute agitation. Despite this, in addition, the patient frequently becomes agitated and aggressive towards nursing staff. The last trial of Geodon appear to be ineffective and Haldol resulted in increased agitation. IV morphine was trialed secondary to possibility of agitation being the patient's demonstration of pain/chest discomfort with adequate but short effect. We have had the best results with rare, low-dose, IV Ativan. Her acute encephalopathy is likely multifactorial secondary to advanced dementia , urinary tract infection (has completed course of antibiotics), dehydration ( evidenced by hypernatremia), salicylate overdose (resolved), and probable hospital psychosis. Notably, her agitation increases dramatically when her atrial fibrillation returns to a rapid ventricular rate. (3) Elevated troponin Is this a current diagnosis for this admission?: Yes Diagnosis Summary: Initial troponin <0.012 on admission, peaked at 1.130 on 08/11/2017 and continues to trend down. Troponin (08/15/2017) noted to be 0.133 with CK-MB of 1.74 and CK 119. Her elevated troponin is likely secondary to atrial fibrillation with RVR. However, due to patient's advanced dementia and current delirium we are unable to assess for cardiac chest pain. Due to inability to adequately assess for cardiac chest pain, she was placed on nitroglycerin transdermal patch. We did trial IV morphine 1 as the patient's anxiety/agitation may be demonstration of acute pain. She did become calm following IV morphine, however, within 45 minutes was again calling out. It is unlikely that the morphine provided pain relief rather than just slight sedation. (4) Dementia Is this a current diagnosis for this admission?: Yes Diagnosis Summary: At baseline, the patient has advanced dementia but is typically alert and oriented to self, familiar persons, and her home but becomes easily agitated when in outside environments or meeting new persons. Prior to admission, the patient was independently ambulatory. (5) Hypernatremia Is this a current diagnosis for this admission?: Yes Diagnosis Summary: On admission, the patient's sodium was mildly elevated at 145.8. The following day her sodium had increased to 151.3. This was corrected with IV maintenance fluids and remained normal for 4 days. IV fluids maintenance fluids were subsequently discontinued. The patient had adequate p.o. intake. Her sodium has gradually trended upwards with resumption of NS on 08/16/17 for Na of 148.9. Her sodium drifted upward slightly to 150.1 and therefore she was transitioned to 1/2NS at 100 ml/hr. Follow up lab this afternoon confirms downward trend of sodium to 148.1. (6) Hypertension Is this a current diagnosis for this admission?: Yes Diagnosis Summary: The patient's blood pressures have been labile secondary to frequent cardiac medication changes. Blood pressures in the last 24 hours range from 100/58 to 152/109. She is currently on a diltiazem drip. She is provided lisinopril 10 mg daily, nitroglycerin 5 mg transdermal patch, and a clonidine 0.2 mg transdermal patch. (7) GERD (gastroesophageal reflux disease) Is this a current diagnosis for this admission?: Yes Diagnosis Summary: Her home dose Protonix was continued. (8) Salicylate intoxication Is this a current diagnosis for this admission?: Yes Diagnosis Summary: Resolved. The patient was admitted with a salicylate level of 21.4 secondary to unknown medication. The patient had presented to the emergency department with a complaint of increased confusion and fatigue. Her Tylenol level was less than 10 and urine drug screen was negative. Poison control contacted by previous provider; recommended supportive care and follow-up salicylate level. Fortunately, this normalized by the following day. Did discuss with the patient's significant other; he reports that there is a bottle marked aspirin in the home containing vitamin C tablets as the patient regularly takes "aspirin" for aches and pains and becomes agitated when she is not allowed to do so. He is uncertain what medication she had access to as he reports that all of the medications are locked up. (9) Urinary tract infection Is this a current diagnosis for this admission?: Yes Diagnosis Summary: Resolved. Urinalysis was positive for nitrates and small blood. Urine culture demonstrated pansensitive Klebsiella pneumonia resistant only to ampicillin. It is equally possible that she is colonized versus acute urinary tract infection. Given the patient's delirium, she was treated with IV fluids and antibiotics. Initially she received IV Rocephin 3 days and then transitioned to p.o. Cipro for completion of antibiotic course. She received a total of 7 days of antibiotic therapy. - Transfer Medications Home Medications: Donepezil HCl [Aricept 5 mg Tablet] 5 mg PO DAILY 08/10/17 Lisinopril [Prinivil 5 mg Tablet] 5 mg PO QHS 08/10/17 Pantoprazole Sodium [Protonix] 40 mg PO DAILY 08/10/17 Transfer Medications: Current Medications Acetaminophen (Tylenol 325 Mg Tablet) 325 mg PO Q4HP PRN PRN Reason: FOR PAIN OR TEMP Stop: 09/07/17 22:19 Al Hydrox/Mg Hydrox/Simethicone (Maalox Plus Susp 30 Udcup) 30 ml PO Q6HP PRN PRN Reason: HEARTBURN Stop: 09/07/17 22:19 Albuterol/Ipratropium (Duoneb 3 Ml Ampul) 3 ml NEB [id number] PRN PRN Reason: SHORTNESS OF BREATH Stop: 09/07/17 22:19 Aspirin (Aspirin 81 Mg Chewable Tablet) 81 mg PO DAILY [facility] Stop: 09/13/17 09:59 Last Admin: 08/17/17 10:40 Dose: Not Given Buspirone HCl (Buspar 10 Mg Tablet) 10 mg PO QHS [facility] Stop: 09/08/17 21:59 Last Admin: 08/16/17 21:31 Dose: 10 mg Buspirone HCl (Buspar 10 Mg Tablet) 5 mg PO QAM [facility] Stop: 09/09/17 07:59 Last Admin: 08/17/17 08:16 Dose: 5 mg Clonidine HCl (Catapres-Tts 2 (0.2 Mg/24 Hr) Transderm Ptch) 1 each TD Tu@1400 [facility] Stop: 09/15/17 13:59 Last Admin: 08/16/17 14:17 Dose: 1 each Digoxin (Lanoxin 0.125 Mg Tablet) 0.125 mg PO DAILY [facility] Stop: 09/14/17 09:59 Last Admin: 08/17/17 10:40 Dose: 0.125 mg Divalproex Sodium (Depakote Ec 250 Mg Tablet.) 500 mg PO DAILY@2200 [facility] Stop: 09/15/17 21:59 Last Admin: 08/16/17 21:31 Dose: 500 mg Divalproex Sodium (Depakote Ec 250 Mg Tablet.) 250 mg PO BID@0600,1400 [facility] Stop: 09/15/17 13:59 Last Admin: 08/17/17 13:17 Dose: Not Given Docusate Sodium (Colace 100 Mg Capsule) 100 mg PO BID [facility] Stop: 09/08/17 09:59 Last Admin: 08/17/17 10:40 Dose: Not Given Heparin Sodium (Porcine) (Heparin Inj 5,000 Units/Ml 1 Ml Syringe) 5,000 unit SUBCUT Q8 [facility] Stop: 09/08/17 05:59 Last Admin: 08/17/17 13:15 Dose: 5,000 unit Hydralazine HCl (Apresoline Inj/Pf 20 Mg/1 Ml Sdv) 10 mg IV Q6HP PRN PRN Reason: SBP>180, DBP>100 Stop: 09/08/17 16:47 Last Admin: 08/15/17 07:49 Dose: 10 mg Diltiazem HCl (Cardizem Rtu Inj 125 Mg-D5w 125 Ml Premix) 125 mg in 125 mls @ 15 mls/hr IV CONTINUOUS PRN; Protocol PRN Reason: THIS MED IS NOT "PRN" Stop: 09/15/17 10:49 Last Admin: 08/17/17 05:58 Dose: 125 ml Sodium Chloride (Nacl 0.45% 1000 Ml Iv Soln) 1,000 mls @ 100 mls/hr IV CONTINUOUS PRN PRN Reason: THIS MED IS NOT "PRN" Stop: 09/16/17 07:44 Last Admin: 08/17/17 08:14 Dose: 1,000 ml Lansoprazole (Prevacid 30 Mg Odt Tablet) 30 mg PO Q6AM [facility]JEE[facility] Stop: 09/10/17 05:59 Last Admin: 08/17/17 06:07 Dose: 30 mg Lisinopril (Prinivil 10 Mg Tablet) 10 mg PO QPM [facility]JEE[facility] Stop: 09/13/17 17:59 Last Admin: 08/16/17 18:04 Dose: 10 mg Metoprolol Tartrate (Lopressor Inj/Pf 5 Mg/5 Ml Sdv) 5 mg IV Q8HP PRN PRN Reason: HR>90 Stop: 09/13/17 22:28 Last Admin: 08/16/17 16:07 Dose: 5 mg Nicotine (Nicoderm 14 Mg/24 Hr Transdermal Patch) 1 each TD DAILY [facility] Stop: 09/09/17 09:59 Last Admin: 08/17/17 10:37 Dose: 1 each Nitroglycerin (Nitro-Dur 5 Mg (0.2 Mg/Hr) Transdermal Patch) 1 each TD DAILY [facility] Stop: 09/13/17 09:59 Last Admin: 08/17/17 10:36 Dose: 1 each Risperidone (Risperdal 0.25 Mg Tablet) 0.25 mg PO BIDP PRN PRN Reason: ANXIETY/AGITATION Stop: 09/15/17 08:01 Last Admin: 08/16/17 08:32 Dose: 0.25 mg - Allergies Allergies/Adverse Reactions: Penicillins Allergy (Verified 07/10/17 12:12) rofecoxib [From Vioxx] Allergy (Verified 07/10/17 12:12) Sulfa (Sulfonamide Antibiotics) Allergy (Verified 07/10/17 12:12) - Diet/Activity Discharge Diet: Cardiac Discharge Activity: Bedrest - Unfortunately, secondary to agitation/ combativeness and multiple IV line removals, the patient has remained in soft limb restraints, occasionally with mittens, since 08/09/17. Hospital Course Hospital Course: The patient was admitted with increased confusion and generalized weakness; originally believed to be related to urinary tract infection, mild dehydration, and salicylate overdose. She was provided IV fluids and empiric antibiotics. Overnight, the patient became acutely agitated and it was noted that she had converted from normal sinus rhythm to atrial fibrillation with rapid ventricle response. The aspirin toxicity has resolved, patient received a full course of antibiotic treatment for urinary tract infection, continues to have mild hypernatremia secondary to poor p.o. intake which is currently being corrected with IV fluids. Unfortunately, due to the patient's delirium, agitation, combative behaviors, and multiple IV line removals she has remained in soft limb restraints throughout her admission. Psychiatry has been consulted and their medication regiment has been implemented, however the patient continues to have baseline agitation becomes severe during her atrial fibrillation w/ RVR episodes. Cardiology was consulted for her recurrent atrial fibrillation with RVR and elevated troponins. Cardiology has made multiple attempts to transition the patient to p.o. medications without success. Rate control is achieved well on a diltiazem drip but shortly upon transition to p.o. medications her A. fib RVR resumes. She has also been noted to have multiple occurrences of bradycardia with heart rate into the low 40s. Our lifeline representatives, Dr. Sanford, has arranged for transfer of the patient to [facility]. Dr. Roberson, Cardiology, has graciously accepted this patient for cardiac ablation and permanent pacemaker placement secondary to resistant atrial fibrillation with RVR, resulting in acute agitation and delirium, intermittently with bradycardia (heart rate in the 40s). Physical Exam Vital Signs: Temp Pulse Resp BP Pulse Ox 97.8 F 112 H 16 139/77 H 97 08/17/17 11:23 08/17/17 14:00 08/17/17 11:23 08/17/17 12:00 08/17/17 11:23 Intake & Output 08/16/17 08/17/17 08/18/17 06:59 06:59 06:59 Intake Total 1994 4092 50 Output Total 50 Balance 1944 4092 50 Weight 59.2 kg 56.5 kg General appearance: PRESENT: no acute distress, thin, well-developed Head exam: PRESENT: atraumatic, normocephalic Eye exam: PRESENT: conjunctiva pink, EOMI, PERRLA. ABSENT: scleral icterus Ear exam: PRESENT: normal external ear exam Mouth exam: PRESENT: moist, tongue midline Neck exam: ABSENT: carotid bruit, JVD, lymphadenopathy, thyromegaly Respiratory exam: PRESENT: clear to auscultation kirt, prolonged expiratory phas , symmetrical, unlabored. ABSENT: rales, rhonchi, wheezes Cardiovascular exam: PRESENT: irregular rhythm, +S1, +S2, systolic murmur. ABSENT: diastolic murmur, rubs Pulses: PRESENT: normal dorsalis pedis pul Vascular exam: PRESENT: normal capillary refill GI/Abdominal exam: PRESENT: normal bowel sounds, soft. ABSENT: distended, guarding, mass, organolmegaly, rebound, tenderness Rectal exam: PRESENT: deferred Extremities exam: PRESENT: full ROM. ABSENT: calf tenderness, clubbing, pedal edema Neurological exam: PRESENT: alert, awake, oriented to person, CN II-XII grossly intact, other - Oriented to self, columns when family members are present, but otherwise is very confused, agitated, with incoherent sentence structure. She does not answer questions appropriately or follow commands. She is noted to have movement to all extremities, no facial droop noted, moth proofer are equal.. ABSENT: oriented to place, oriented to time, oriented to situation, motor sensory deficit Psychiatric exam: PRESENT: agitated, appropriate affect, other - The patient is intermittently calm and quiet; but frequently noted to be agitated and combative (acute agitation events appear to coincide with episodes of A. fib w/ RVR).. ABSENT: homicidal ideation, suicidal ideation Focused psych exam: PRESENT: psychomotor agitation, restlessness Skin exam: PRESENT: dry, intact, warm, other - Scattered ecchymosis. ABSENT: cyanosis, rash Results Laboratory Results: 08/14/17 04:46 08/17/17 14:20 08/17/17 08/17/17 05:24 14:20 Sodium 150.1 H 148.1 H Potassium 3.7 3.8 Chloride 119 H 114 H Carbon Dioxide 21 L 21 L Anion Gap 10 13 BUN 23 H 21 H Creatinine 0.63 0.64 Est GFR ( Amer) > 60 > 60 Est GFR (Non-Af Amer) > 60 > 60 Glucose 102 124 H Calcium 8.5 8.9 Total Bilirubin 0.6 AST 40 H ALT 57 H Alkaline Phosphatase 136 H Total Protein 5.2 L Albumin 3.0 L 08/11/17 08/11/17 08/11/17 06:56 06:56 13:35 Creatine Kinase 241 H CK-MB (CK-2) 3.54 Troponin I 0.148 Cancelled 08/11/17 08/11/17 08/13/17 14:41 19:10 12:55 Creatine Kinase CK-MB (CK-2) Troponin I 0.704 1.130 0.386 08/14/17 08/14/17 08/15/17 04:46 04:46 19:35 Creatine Kinase 213 H 119 CK-MB (CK-2) Troponin I 0.224 08/15/17 19:35 Creatine Kinase CK-MB (CK-2) 1.74 Troponin I 0.133 Impressions: Head CT 08/08/17 17:54 IMPRESSION: CHRONIC MICROVASCULAR ISCHEMIA. NO ACUTE IMAGING FINDINGS IN THE BRAIN. EVIDENCE OF ACUTE STROKE: NO. Head MRI 08/08/17 19:17 IMPRESSION: No acute changes. Moderate diffuse small vessel ischemic change throughout the hemispheric white matter. EVIDENCE OF ACUTE STROKE: NO. Plan Discharge Plan: Transfer of the patient to [facility] under the care of Dr. Roberson , Cardiology, for cardiac ablation and permanent pacemaker placement secondary to resistant atrial fibrillation with RVR, resulting in acute agitation and delirium, intermittently with bradycardia (heart rate in the 40s). Time Spent: Greater than 30 Minutes
[2017-08-17] MEDS: LISINOPRIL 10 MG TABLET PO SCH (17:06)
[2017-08-17 17:47] VITALS: BP 140/90
--- NOTE | 2017-08-17 23:51 | PROGRESS NOTE E ---
Progress Note NAME: NICK ST : 1935 AGE: 81Y DATE: 08/17/2017 ROOM: 319 SUBJECTIVE: Note that the patient has periods of quiet and resting comfortably, but intermittently becomes agitated. She had to be restarted on the Cardizem drip since her heart rate went up into the 150s. Last night, her heart rate went down into the 40s to 50s with slight drop in blood pressure, and the Cardizem drip was stopped. Then again, her heart rate went up to 150. 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 In view of this, the only option is the patient will not cooperate for the DASHAWN guided cardioversion, and also after DASHAWN guided cardioversion, if DASHAWN shows no clots, then the patient would have to be on medication which I am not sure if she would take regularly in view of her mental status. The only other viable option is to get the patient off her drips and place a VVI pacemaker and to ablate the AV node. This was discussed with the patient's son, who is in agreement. He is aware of the benefits and risks, and he also knows that the patient has to be transferred. The patient is confused and agitated intermittently, although she is resting peacefully intermittently. The patient does not seem to be in any distress when she is comfortably resting. The patient moves all 4 extremities. OBJECTIVE: GENERAL: The patient appears to be chronically ill, malnourished, and older than her stated age. VITAL SIGNS: She is afebrile with a temperature of 97.8 degrees Fahrenheit, pulse 64 beats per minute, blood pressure 139/77, respirations 16 per minute, O2 sats 97% on room air. HEENT: Head is atraumatic, normocephalic. Eyes: Pupils are equal, round, regular, reactive to light. There is no conjunctival pallor. There is no scleral icterus. ENT is negative. NECK: Supple. There is no JVD. Carotids are equal. There is no bruit. LUNGS: Diminished air entry, prolonged expiration without any rhonchi, rales, or wheezing. S1, S2 heard. S1 is of variable intensity. There is no S3 gallop. There is no S4 gallop. There is a systolic murmur in the left sternal border and the apex. There is no rub. ABDOMEN: Soft, nontender. There is no hepatosplenomegaly. Bowel sounds are well heard. EXTREMITIES: Femorals are diminished. There are no femoral bruits. Leg pulses are diminished. There is no pedal edema. There is no DVT or cellulitis. There is no calf tenderness. 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 She moves all 4 extremities. PSYCHIATRIC: The patient has episodes of agitation. Full psych testing could not be done. The patient's sodium is 141.1, potassium 3.8, chloride 104, CO2 is 21. The patient's BUN is 21, creatinine 0.64. GFR is greater than 60. Glucose 124, calcium 8.9. The patient's liver function tests are abnormal with alkaline phosphatase of 136, ALT 57, AST 40. Albumin is 3.0. Total protein 5.2. ASSESSMENT: 1. ELEVATED TROPONIN-I SECONDARY TO ATRIAL FIBRILLATION. No evidence of non-ST elevation myocardial infarction. *------* type 2 myocardial infarction secondary to atrial fibrillation with rapid ventricular response. 2. ATRIAL FIBRILLATION WITH RAPID VENTRICULAR RESPONSE. Seems to be responsive to 15 mg of IV Cardizem and also digoxin. In view of this, the best option would be to transfer the patient to a tertiary care center and have a VVI pacemaker put in and do an AV ablation, since that would control the patient's ventricular response, and that would facilitate the transfer of the patient to a [facility]dc facility. This has been discussed with Dr. Roberson of [facility], who has agreed and accepted the patient. Discussed this with the patient's son. All questions were answered. 3. DEMENTIA WITH BEHAVIOR DISTURBANCES. 4. URINARY TRACT INFECTION WITH KLEBSIELLA. Patient on antibiotics. Seems to have resolved. 5. SALICYLATE INTOXICATION ON ADMISSION. Should have resolved by now, but the patient's mental status is not improving. Note that Psych is on the case, and they have adjusted the patient's psych medications. 6. ACUTE ENCEPHALOPATHY. Patient with intermittent episodes of agitation. 7. HYPERTENSION. Well controlled. 8. DEMENTIA. Severe. 9. ARTHRITIS. 10. TOBACCO ABUSE. 11. CHRONIC OBSTRUCTIVE PULMONARY DISEASE by exam. PLAN: As mentioned earlier, continue the patient on Cardizem drip. Will have the patient transferred to [facility] for VVI pacemaker placement and ablation. Discussed with the patient's son and also discussed with the hospitalist taking care of the patient. Medications reviewed. Would continue the patient on digoxin and also continue the patient on IV Cardizem. Note 45 minutes spent on this patient with more than 50% of time spent in direct patient care. Also discussed with the [facility] senior interactive producer and also with the hospitalist. Medical decision making is of high complexity. Will sign off the case, since the patient is being transferred. The patient's son is aware of the benefits and risks of transfer. DICTATING PHYSICIAN: JACKY FRANKEL M.D. [id number] ELIAZAR#: [id number] ID: [id number] JOB#: [id number] ACCT: [id number] cc: >
== END 2017-08-17 18:24 | disposition short-term general hospital (02) | DRG 308 ==
LOC: ER 16:43 → OBSVTOIN 22:56 → EH 22:56 → 3W 08-09 02:30
PROVIDERS: ADMIT Internal Medicine; ATTEND Internal Medicine
DX: I48.91 Unspecified atrial fibrillation (principal); G93.49 Other encephalopathy; N39.0 Urinary tract infection, site not specified; B96.1 Klebsiella pneumoniae [K. pneumoniae] as the cause of diseases classified elsewhere; E87.0 Hyperosmolality and hypernatremia; I45.2 Bifascicular block; T39.011A Poisoning by aspirin, accidental (unintentional), initial encounter; E86.0 Dehydration; J44.9 Chronic obstructive pulmonary disease, unspecified; F03.90 Unspecified dementia, unspecified severity, without behavioral disturbance, psychotic disturbance, mood disturbance, and anxiety; Z78.1 Physical restraint status; I10 Essential (primary) hypertension; K21.9 Gastro-esophageal reflux disease without esophagitis; M19.90 Unspecified osteoarthritis, unspecified site; Z79.899 Other long term (current) drug therapy; Z88.0 Allergy status to penicillin; Z88.2 Allergy status to sulfonamides; Z88.8 Allergy status to other drugs, medicaments and biological substances; Z85.3 Personal history of malignant neoplasm of breast; Z90.11 Acquired absence of right breast and nipple; Z90.710 Acquired absence of both cervix and uterus; F17.200 Nicotine dependence, unspecified, uncomplicated
CPT/HCPCS: 36415; 70450; 70551; 80048; 80053; 80307; 81001; 82140; 82550; 82553; 83735; 84443; 84484; 85025; 85027; 87086; 87088; 87186; 93005; 93010; 96365; 96372; 96375; 99285; G8978-GP; G8979-GP; G8980-GP; J0360; J0696; J0744; J1160; J1630; J1644; J2060; J2270; J3480; J3486; J3490; J7030; J7060